=== PATIENT | female | born 1950 | race Caucasian/White ===

== ENCOUNTER 2023-04-01 11:17 | Outpatient (OUT) | payer MEDICARE, OTHER, SELFPAY ==
[2023-04-01 13:02] LABS: Free T4 0.77 ng/dL (0.76-1.46)
[2023-04-01 13:34] LABS: Thyroid Stimulating Hormone 6.118 uIU/mL (0.358-3.740)
== END 2023-04-01 11:18 | disposition home or self-care (01) ==
LOC: LAB 11:22
PROVIDERS: PCP Family Medicine; Visit Provider Family Medicine
DX: R94.6 Abnormal results of thyroid function studies (principal)
CPT/HCPCS: 36415; 84439; 84443

== ENCOUNTER 2023-06-27 09:22 | Outpatient (OUT) | payer MEDICARE, OTHER, SELFPAY ==
[2023-06-27 11:13] LABS: Free T4 1.25 ng/dL (0.76-1.46)
[2023-06-27 11:15] LABS: Chol HDL Ratio 2.7; Cholesterol 197 mg/dL (<=200); HDL Cholesterol 73 mg/dL (40-60); Thyroid Stimulating Hormone 2.159 uIU/mL (0.358-3.740); Triglycerides 165 mg/dL (<=150)
== END 2023-06-27 09:23 | disposition home or self-care (01) ==
LOC: LAB 09:23
PROVIDERS: PCP Family Medicine; Visit Provider Family Medicine
DX: E03.9 Hypothyroidism, unspecified (principal); E78.2 Mixed hyperlipidemia
CPT/HCPCS: 36415; 80061; 84439; 84443

== ENCOUNTER 2023-08-26 09:32 | Outpatient (OUT) | payer MEDICARE, OTHER, SELFPAY ==
--- NOTE | 2023-08-26 09:36 | XR_ITS ---
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 TECHNIQUE: AP view of the abdomen. FINDINGS: Nonobstructive bowel gas pattern is noted. There are multiple right renal calculi, largest measuring up to 5 mm. The osseous structures are intact. XR/XR abdomen 1V IMPRESSION: Nonobstructive bowel gas pattern. Right nephrolithiasis. Constipation. Electronically authenticated by: THAD MONTANA Date: 08/26/2023 10:05
--- NOTE | 2023-08-26 09:38 | US_ITS ---
The [address] [address] Patient Name: VARSHA CARTER MRN: [id number] date: 1950 Sex: F Assigned Patient Location: Current Patient Location: Accession/Order Number: [id number] Exam Date: 08/26/2023 10:03 Report Date: 08/27/2023 14:25 At the request of: DEDRA SAMUELS Procedure: US renal BI US renal BI EXAM DATE: 08/26/2023 8:03 AM MST COMPARISON: Abdomen radiograph 08/26/2023. INDICATION: History of kidney stone. TECHNIQUE: Real-time ultrasound scanning of the kidneys was performed by the equestrian trainer. [employer] static images are submitted for review. FINDINGS: Right Kidney: The right kidney measures 7.9 x 3.4 x 4 cm. Normal echogenicity. No hydronephrosis. Shadowing mid pole renal calculus with associated tinkle artifact measures 1.1 x 0.7 x 1.2 cm. No obvious contour deforming lesion or solid renal mass. Renal cortex measures 1.2 cm. Left Kidney: The left kidney measures 9.4 x 3.6 x 4.2 cm. Normal echogenicity. No hydronephrosis. Echogenic focus with associated twinkle artifact at the mid pole measures 0.5 x 0.4 x 0.5 cm. No obvious contour deforming lesion or solid renal mass. Renal cortex measures 1.4 cm. US/US renal BI IMPRESSION: 1. No hydronephrosis. 2. Bilateral renal calculi. Electronically authenticated by: FABIANA FELICIANO Date: 08/27/2023 14:25
== END 2023-08-26 09:33 | disposition home or self-care (01) ==
LOC: US 09:32
PROVIDERS: PCP Family Medicine; Visit Provider Urology
DX: N20.0 Calculus of kidney (principal); N28.89 Other specified disorders of kidney and ureter; K59.00 Constipation, unspecified
CPT/HCPCS: 74018; 76775

== ENCOUNTER 2024-08-20 08:36 | Outpatient (OUT) | payer MEDICARE, OTHER, SELFPAY ==
--- OUTSIDE RECORDS SUMMARY | 2024-08-20 08:56 | XMS_ITS | CCD ---
Author Organization [facility] Care Team Providers Care Workers Compensation Legal Secretary Name Role Phone Francisco Galan Primary Care Physician [phone] DR ELLIE MONTILLA V Consulting Unavailable MAR ., DR SINGH Primary Care Unavailable LUE ., CADENCE M Attending Unavailable LUE ., CADENCE M Admitting Unavailable ZIEBER, DR VANESSA Lorenzana Consulting Unavailable LUE ., CADENCE M Consulting Unavailable ZIEBER, DR VANESSA Lorenzana Consulting Unavailable HOY ., DR SINGH Primary Care Unavailable LUE ., CADENCE M Attending Unavailable LUE ., CADENCE M Admitting Unavailable LUE ., CADENCE M Consulting Unavailable LUE ., CADENCE M Procedure Practitioner Unavailab le MAR ., DR SINGH Consulting Unavailable HOY ., DR SINGH Attending Unavailable HOSabiha .DR SINGH Admitting Unavailable AGUBOSIM, CONNOR Consulting Unavailable LUE ., CADENCE M Consulting Unavailable ZIEBER, DR VANESSA Lorenzana Consulting Unavailable LUE ., CADENCE M Attending Unavailable LUE ., CADENCE M Admitting Unavailable AGUBOSIM, CONNOR Consulting Unavailable LUE ., CADENCE M Consulting Unavailable STEF LYON Consulting Unavailable JAMMIE FRANCOIS Consulting Unavailable LUE ., CADENCE M Consulting Unavailable HOY ., DR SINGH Primary Care Unavailable LUE ., CADENCE M Attending Unavailable LUE ., CADENCE M Admitting Unavailable YESICA, MODESTO Consulting Unavailable AUDREY CHAVES Consulting Unavailable ISI CORRIGAN Consulting Unavailable LUE ., CADENCE M Attending Unavailable LUE ., CADENCE M Admitting Unavailable LUE ., CADENCE M Consulting Unavailable SUSANY ., DR SINGH Primary Care Unavailable LUE ., CADENCE M Attending Unavailable LUE ., CADENCE M Admitting Unavailable MIKE MAYA Consulting Unavailable MAR .DR SINGH Primary Care Unavailable LUE ., CADENCE M Attending Unavailable LUE ., CADENCE M Admitting Unavailable LUE ., CADENCE M Consulting Unavailable HOY ., DR SINGH Primary Care Unavailable LUE ., CADENCE M Consulting Unavailable LUE ., CADENCE M Attending Unavailable LUE ., CADENCE M Admitting Unavailable ZIEBER, DR VANESSA Lorenzana Consulting Unavailable LUE ., CADENCE M Attending Unavailable LUE ., CADENCE M Admitting Unavailable LUE ., CADENCE M Consulting Unavailable LUE ., CADENCE M Consulting Unavailable LUE ., CADENCE M Attending Unavailable LUE ., CADENCE M Admitting Unavailable ZIEBER, DR VANESSA Lorenzana Consulting Unavailable HOY ., DR SINGH Primary Care Unavailable LUE ., CADENCE M Attending Unavailable LUE ., CADENCE M Admitting Unavailable LUE ., CADENCE M Consulting Unavailable HOY ., DR SINGH Consulting Unavailable HOY ., DR SINGH Attending Unavailable HOY ., DR SINGH Admitting Unavailable HOY ., DR SINGH Consulting Unavailable HOY ., DR SINGH Primary Care Unavailable HOY ., DR SINGH Attending Unavailable HOY ., DR SINGH Admitting Unavailable Lue, Cadence M. Attending Unavailable Lue, Cadence M. Attending Unavailable Lue, Cadence M. Attending Unavailable Allergies Allergy Classification Reported Allergen(s) Allergy Type Date of Onset Reaction(s) Facility (1 source) No Known Medication Allergies; Translations: [No Known Medication Allergies] Propensity to adverse reactions (disorder) [facility] Repository Medications Current Medications Medication Drug Class(es) Dates Sig (Normalized) Sig (Original) amoxicillin 875 mg / clavulanate 125 mg oral tablet (1 source) Penicillin-class Antibacterial Start: 04-21-2022 amoxicillin-clavul anate 875 mg-125 mg Tab Refill(s) 0 Start Date: 04/21/22 Status: Ordered cetirizine hydrochloride 10 mg oral tablet (4 sources) Histamine-1 Receptor Antagonist Start: 04-30-2022 take 10 mg by mouth once daily Zyrtec 10 mg, Oral, Daily, Refills(s) 0, Allergy symptoms Start Date: 04/30/22 Status: Ordered Hair, skin & Nails Multiple Vitamins with Minerals oral tablet (4 sources) Start: 05-04-2022 take 1 tablet by mouth once daily Hair, skin & Nails Multiple Vitamins with Minerals oral tablet 1 tab(s), Oral, Daily, Prophylaxis Start Date: 05/04/22 Status: Ordered ketorolac tromethamine 10 mg oral tablet (5 sources) Nonsteroidal Anti-inflammatory Drug, Cyclooxygenase Inhibitor Start: 04-21-2022 take 1 tablet by mouth every four hours as needed for pain ketorolac 10 mg Tab 10 mg = 1 tab(s), Oral, q4hr, PRN for pain, # 60 tab(s), Refills(s) 0 Start Date: 04/21/22 Status: Ordered levothyroxine sodium 0.05 mg oral tablet (1 source) l-Thyroxine Start: 09-07-2023 levothyroxine 50 mcg (0.05 mg) Tab Refills(s) 0 Start Date: 09/07/23 Status: Ordered mupirocin 0.02 mg/mg topical ointment (1 source) RNA Synthetase Inhibitor Antibacterial Start: 04-21-2022 mupirocin Top 2% Oint Refill(s) 0 Start Date: 04/21/22 Status: Ordered oxybutynin chloride 5 mg oral tablet (2 sources) Cholinergic Muscarinic Antagonist Start: 05-04-2022 take 1 tablet by mouth three times daily as needed for pain oxybutynin 5 mg Tab 5 mg = 1 tab(s), Oral, TID, PRN for urinary discomfort, bladder spasms, stent pain, # 90 tab(s), Refills(s) 0, Pharmacy: [id number], 162, cm, 04/30/22 8:03:00 EDT, Height/Length Dosing, 50.9, kg, 05/04/22 8:39:00 EDT, Weight Dosing Start Date: 05/04/22 Status: Ordered tamsulosin hydrochloride 0.4 mg oral capsule (2 sources) alpha-Adrenergic Blas Start: 05-26-2022 take 1 capsule by mouth once daily tamsulosin 0.4 mg Cap 0.4 mg = 1 cap(s), Oral, Daily, Stent pain, stone passage, # 30 cap(s), Refills(s) 1, Pharmacy: [id number], 159, cm, 05/26/22 9:44:00 EDT, Height/Length Dosing, 50.9, kg, 05/26/22 9:44:00 EDT, Weight Dosing Start Date: 05/26/22 Status: Ordered Start: 05-04-2022 take 1 capsule by [facility] once daily tamsulosin 0.4 mg Cap 0.4 mg = 1 cap(s), Oral, Daily, Stent pain, stone passage, # 30 cap(s), Refills(s) 1, Pharmacy: [id number], 162, cm, 04/30/22 8:03:00 EDT, Height/Length Dosing, 50.9, kg, 05/04/22 8:39:00 EDT, Weight Dosing Start Date: 05/04/22 Status: Ordered Problems Active Problems Problem Classification Problem Date Documented Date Episodic/Chronic Calculus of urinary tract (17 sources) Kidney stone; Translations: [Calculus of kidney] Onset: 04-21-2022 Episodic Genitourinary symptoms and ill-defined conditions (18 sources) Microscopic hematuria; Translations: [Asymptomatic microscopic hematuria] Onset: 04-21-2022 Episodic Other diseases of kidney and ureters (2 sources) Disorder of kidney and/or ureter; Translations: [Other specified disorders of kidney and ureter] Onset: 09-01-2022 Chronic Other diseases of kidney and ureters (2 sources) 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 Other diseases of kidney and ureters (1 source) Other specified disorders of kidney and ureter; Translations: [OTHER SPEC DISORDERS KIDNEY URETER] Onset: 08-09-2022 Chronic Other diseases of kidney and ureters (3 sources) Urinary tract obstruction; Translations: [Hydronephrosis with renal and ureteral calculous obstruction] Onset: 04-21-2022 Episodic Other diseases of kidney and ureters (7 sources) Hydronephrosis 04-21-2022 Episodic Unclassified (4 sources) Asymptomatic microscopic hematuria 07-14-2022 Unclassified (1 source) CONTACT W/AND (SUSP) EXPOS COVID-19; Translations: [CONTACT W/AND (SUSP) EXPOS COVID-19] Onset: 07-28-2022 Past or Other Problems Problem Classification Problem Date Documented Date Episodic/Chronic Acute and unspecified renal failure (1 source) Acute kidney failure, unspecified; Translations: [ACUTE KIDNEY FAILURE UNSPECIFIED] Onset: 04-15-2022 Episodic Fluid and electrolyte disorders (1 source) Hypokalemia; Translations: [HYPOKALEMIA] Onset: 04-15-2022 Episodic Other diseases of kidney and ureters (4 sources) Hydronephrosis with renal and ureteral calculous obstruction; Translations: [HYDRONPHROS RENL AND URETRL CALCUL OBST] Onset: 05-24-2022 Episodic Septicemia (except in labor) (6 sources) Sepsis due to Escherichia coli [E. coli]; Translations: [Sepsis, unspecified organism] Onset: 04-09-2022 Episodic Shock (1 source) Severe sepsis with septic shock; Translations: [SEVERE SEPSIS WITH SEPTIC SHOCK] Onset: 04-15-2022 Episodic Urinary tract infections (1 source) Pyonephrosis; Translations: [PYONEPHROSIS] Onset: 04-15-2022 Episodic Results Test Name Value Interpretation Reference Range Facility Ambulatory Visit Summaryon 11-07-2022 Ambulatory Visit Summary JUNAID CARTER :1950 Visit Date:09/07/2023 Ambulatory Visit Instructions Your Diagnosis Kidney stone Calyceal diverticulum Nocturia Tests Performed Urnls Dip Stick Auto w/o Microscopy POC 90185 US Renal -- Results Pending -- XR Abdomen 1 View -- Results Pending -- Please visit your patient portal for your results or contact your primary care physician. Your Care Team Attending Physician - Cadence Green MD Primary Care Physician - Francisco Galan MD This Is Your Medications List Contact prescribing physician if questions or concerns levothyroxine (levothyroxine 50 mcg (0.05 mg) Tab) Procedures Performed Ureteroscopy with biopsy (07/28/2022), ESWL (extracorporeal shockwave lithotripsy) of ureteric calculus (05/04/2022), Placement of stent (05/04/2022), Cystoscopy (04/09/2022), Carpal tunnel release, Tonsillectomy. Discharge Vitals Heart Rate (Peripheral) 80 Respiratory Rate 16 Blood Pressure 133/73 Height 159 cm Height 63 in Weight 50 kg Weight 110 lb BMI 19.78 What to do next Scheduled Follow-Up Appointments Tuesday 9:00 AM EST With: Cadence Green MD Where: [facility] Patient Educationon 09-07-20 23 Patient Education Nephrology Dietary Guidelines to Help Prevent Kidney Stones Kidney stones are deposits of minerals and salts that form inside your kidneys. Your risk of developing kidney stones may be greater depending on your diet, your lifestyle, the medicines you take, and whether you have certain medical conditions. Most people can lower their risks of developing kidney stones by following these dietary guidelines. Your dietitian may give you more specific instructions depending on your overall health and the type of kidney stones you tend to develop. What are tips for following this plan? Reading food labels ? Choose foods with no salt added or low-salt labels. Limit your salt (sodium) intake to less than 1,500 mg a day. ? Choose foods with calcium for each meal and snack. Try to eat about 300 mg of calcium at each meal. Foods that contain 200?500 mg of calcium a serving include: ? 8 oz (237 mL) of milk, calcium-fortifiednon -dairy milk, and calcium-fortifiedfru it juice. Calcium-fortified means that calcium has been added to these drinks. ? 8 oz (237 mL) of kefir, yogurt, and soy yogurt. ? 4 oz (114 g) of tofu. ? 1 oz (28 g) of cheese. ? 1 cup (150 g) of dried figs. ? 1 cup (91 g) of cooked broccoli. ? One 3 oz (85 g) can of sardines or mackerel. Most people need 1,000?1,500 mg of calcium a day. Talk to your dietitian about how much calcium is recommended for you. Shopping ? Buy plenty of fresh fruits and vegetables. Most people do not need to avoid fruits and vegetables, even if these foods contain nutrients that may contribute to kidney stones. ? When shopping for convenience foods, choose: ? Whole pieces of fruit. ? Pre-made salads with dressing on the side. ? Low-fat fruit and yogurt smoothies. ? Avoid buying frozen meals or prepared deli foods. These can be high in sodium. ? Look for foods with live cultures, such as yogurt and kefir. ? Choose high-fiber grains, such as whole-wheat breads, oat bran, and wheat cereals. Cooking ? Do not add salt to food when cooking. Place a salt shaker on the table and allow each person to add their own salt to taste. ? Use vegetable protein, such as beans, textured vegetable protein (TVP), or tofu, instead of meat in pasta, casseroles, and soups. Meal planning ? Eat less salt, if told by your dietitian. To do this: ? Avoid eating processed or pre-made food. ? Avoid eating fast food. ? Eat less animal protein, including cheese, meat, poultry, or fish, if told by your dietitian. To do this: ? Limit the number of times you have meat, poultry, fish, or cheese each week. Eat a diet free of meat at least 2 days a week. ? Eat only one serving each day of meat, poultry, fish, or seafood. ? When you prepare animal proteins, cut pieces into small portion sizes. For most meat and fish, one serving is about the size of the palm of your hand. ? Eat at least five servings of fresh fruits and vegetables each day. To do this: ? Keep fruits and vegetables on hand for snacks. ? Eat one piece of fruit or a handful of berries with breakfast. ? Have a salad and fruit at lunch. ? Have two kinds of vegetables at dinner. ? You may be told to limit foods that are high in a substance called oxalate. These include: ? Spinach (cooked), rhubarb, beets, sweet potatoes, and Grenadian chard. ? Peanuts. ? Potato chips, italian fries, and baked potatoes with skin on. ? Nuts and nut products. ? Chocolate. ? If you regularly take a diuretic medicine, make sure to eat at least 1 or 2 servings of fruits or vegetables that are high in potassium each day. These include: ? Avocado. ? Banana. ? [place], prune, carrot, or tomato juice. ? Baked potato. ? Cabbage. ? Beans and split peas. Lifestyle ? Drink enough fluid to keep your urine pale yellow. This is the most important thing you can do. Spread your fluid intake throughout the day. ? If you drink alcohol: ? Limit how much you have to: ? 0?1 drink a day for women who are not . ? 0?2 drinks a day for men. ? Know how much alcohol is in your drink. In the [place] one drink equals one 12 oz bottle of beer (355 mL), one 5 oz glass of wine (148 mL), or one 1? oz glass of hard liquor (44 mL). ? Lose weight if told by your health care provider. Work with your dietitian to find an eating plan and weight loss strategies that work best for you. General information ? Talk to your health care provider and dietitian about taking daily supplements. Depending on your health and the cause of your kidney stones, you may be told: ? Do not take high-dose supplements of vitamin C (1,000 mg a day or more). ? To take a calcium supplement. ? To take a daily probiotic supplement. ? To take other supplements such as magnesium, fish oil, or vitamin B6. ? Take zvnj-yqc-itzwmuo and prescription medicines only as told by your health care provider. These include supplements. What foods sh (more content not included)... Normal [facility] Urology Office/Clinic Noteon 09-07-2023 Urology Office/Clinic Note Chief Complaint 6m ANDREW & KUB HPI Staff 73 yo female here for 6 month f/u with ANDREW and KUB. Previous Dx: kidney stone, calyceal diverticulum, nocturia. S/p Cysto/R RG/Stone Basket Extraction/R Calyx Bx/R stent removal 07/28/22 and R ESWL 05/04/22. KUB & ANDREW 08/26/23 at [facility]. Denies flank pain. Denies UTI since last encounter. Denies any complications voiding. No concerns at this time. History of Present Illness Tests reviewed: reviewed UA, Kub, and ANDREW. I have reviewed the previous health record information and history for this patient from . I have reviewed and verified the staff HPI to be accurate for this encounter. There have been no associated fever, chills, flank pain, or blood in the urine. Denies any urinary infections since last encounter. Review of Systems PHQ Score Initial Depression Screen Score: 0 SCORE ROS - Provider Constitutional: denies weight loss, denies hot flashes. Eyes: denies eye problems. Gastrointestinal: denies nausea, denies vomiting. Cardiovascular: denies chest pain or angina. Integumentary: no dryness Musculoskeletal: denies musculoskeletal symptoms. ENMT: denies otolaryngeal symptoms. Respiratory: no shortness of breath. Heme/Lymph: denies easy bleeding tendency, denies easy bruising tendency. Psychiatric: no confusion, no anxiety. Genitourinary: See HPI. Physical Exam Vitals & Measurements HR: 80(Peripheral) RR: 16 BP: 133/73 HT: 63 in HT: 159 cm WT: 50 kg WT: 110 lb BMI: 19.78 General Appearance: alert , no acute distress, well nourished, well developed female. Genitourinary: bladder nonpalpable, no flank pain. Assessment/Plan Junaid is a 73 yo female here for a 6 mos follow up with a ANDREW and KUB due to Kidney Stones. Present with 1. Kidney stone (N20.0: Calculus of kidney) Hx 1.8 cm R UPJ stone s/p stent urgently for sepsis, followed by Rt ESWL on 05/04/22 - responded very well. S/p R ESWL for 2nd RUP 12x9mm stone. Stent removed. Stone analysis 07/28/22 - 100% hydroxyapatite ANDREW 08/19/22 - large right nonobstructing stone within superior pole, 10 x 9 x 9mm. Nonobstructing 3mm stone within mid body left KUB 02/18/23 - stable right nephrolithiasis measuring 11mm. ANDREW 02/18/23 - 1.6cm right nonobstructing calculus. (on personal review, unchanged from prior, measurements not aligned with stone) KUB 08/26/23 - multiple Rt renal stones, largest measuring up to 5mm NADREW 08/26/23 - BL renal stones, RMP 1.1x0.7x1.2cm, LMP 0.5x0.4x0.5cm Reviewed and discussed imaging results with pt, has some bilateral stones still, stable -Right kidney stone expected to remain given and calyceal diverticulum. Pt states that she has been drinking about 3-4 bottles of water, getting harder to drink, advised pt to try to drink a water when she wakes up in the morning, and more throughout the day. Pt states that she will try to do this. Pt states that she does add lemon juice to her water. Pt states that she would like to continue with the dietary modifications. Advised pt that as long as she is not having any infections or bothersome sxs, we can continue to monitor. Follow up in 1 yr w/KUB and ANDREW. All questions/concerns were discussed. Pt to call the office if she encounters any issues prior. Pt acknowledges understanding. -Will order KUB and ANDREW. -Increase water intake. -Continue Dietary modifications 2. 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 Abnormal appearing overlying issue biopsy and urine cytology were negative for malignancy. -Stone appears stable on renal ultrasound/ KUB. If getting infections or pain will refer to tertiary center for PCNL. 3. Nocturia (R35.1: Nocturia) Improved, depending on fluid intake. Declines further workup/tx at this time. -Cont behavioral changes I spent 25 minutes today with the patient: reviewing tests in preparation to see and discuss them with the patient, documenting clinical information in the electronic health records, and care coordination. Time was spent performing a medical exam and evaluation, counseling and educating the patient/family, and ordering tests in caring for the patient. Follow-up With When Contact Information Cadence Green MD, URL, URO In 1 year Additional Instructions: Patient Education Dietary Guidelines to Help Prevent Kidney Stones I, Odette Khoury, personally scribed for Dr. Green on 09/07/2023 10:23:23. . Portions of this record may have been created with voice recognition artificial intelligence software, specifically [employer], [employer] and or [employer]. Substitutions may have occurred due to the inherent limitations of voice recognition and artificial intelligence software. Doc (more content not included)... Normal [facility] Comment on above: Result Comment: Elec tronically Signed By: Cadence Green MD\.br\Date and Time Signed: 09/07/23 18:17 EST\.br\Electronically Co-Signed By: Odette Khoury\.br\Date and Time Co-Signed: 09/07/23 10:23 EST RAD - Ultrasound Reporton RAD - Ultrasound Report [id number] #1.00TIFF Normal [facility] RAD - MISCon 08-30-2023 RAD - MISC [id number] #1.00TIFF Normal [facility] RAD - Ultrasound Reporton RAD - Ultrasound Report [id number]# 1.00TIFF Normal [facility] Reminderson 08-29-2023 Reminders - From: Federica Jara MA To: NERI Green; Sent: 03/02/2023 12:16:27 EDT Show up: 07/06/2023 12:16:00 EDT Subject: Reminder Message Reminder Message Please Remember to:_RUS and KUB before her appt PATIENT RELATED REMINDER:_ ( ) Call Patient ( ) Ask Patient to ( ) Call Relative ( ) Schedule Patient ( ) Follow up on Results ( ) Other: PROVIDER RELATED REMINDER:_ ( ) Human Factors Advisor Lead ( ) Call Pharmacy ( ) Call Lab ( ) Other: Special Instructions:_ Comments:_ Called pt and she states she gets imaging done @ [facility]. Order for ANDREW & KUB were faxed. Called pt and she states she is scheduled for ANDREW & KUB on 08/24/23 @ [facility] KUB in pt chart, ANDREW found on [place] and scanned. Pt follow up on 09/07/23. Normal [facility] Patient Educationon 03-02-20 Patient Education Urology Kidney Stones Kidney stones are rock-like masses that form inside of the kidneys. Kidneys are organs that make pee (urine). A kidney stone may move into other parts of the urinary tract, including: ? The tubes that connect the kidneys to the bladder (ureters). ? The bladder. ? The tube that carries urine out of the body (urethra). Kidney stones can cause very bad pain and can block the flow of pee. The stone usually leaves your body (passes) through your pee. You may need to have a doctor take out the stone. What are the causes? Kidney stones may be caused by: ? A condition in which certain glands make too much parathyroid hormone (primary hyperparathyroidism) . ? A buildup of a type of crystals in the bladder made of a chemical called uric acid. The body makes uric acid when you eat certain foods. ? Narrowing (stricture) of one or both of the ureters. ? A kidney blockage that you were born with. ? Past surgery on the kidney or the ureters, such as gastric bypass surgery. What increases the risk? You are more likely to develop this condition if: ? You have had a kidney stone in the past. ? You have a family history of kidney stones. ? You do not drink enough water. ? You eat a diet that is high in protein, salt (sodium), or sugar. ? You are overweight or very overweight (obese). What are the signs or symptoms? Symptoms of a kidney stone may include: ? Pain in the side of the belly, right below the ribs (flank pain). Pain usually spreads (radiates) to the groin. ? Needing to pee often or right away (urgently). ? Pain when going pee (urinating). ? Blood in your pee (hematuria). ? Feeling like you may vomit (nauseous). ? Vomiting. ? Fever and chills. How is this treated? Treatment depends on the size, location, and makeup of the kidney stones. The stones will often pass out of the body through peeing. You may need to: ? Drink more fluid to help pass the stone. In some cases, you may be given fluids through an IV tube put into one of your veins at the hospital. ? Take medicine for pain. ? Make changes in your diet to help keep kidney stones from coming back. Sometimes, medical procedures are needed to remove a kidney stone. This may involve: ? A procedure to break up kidney stones using a beam of light (laser) or shock waves. ? Surgery to remove the kidney stones. Follow these instructions at home: Medicines ? Take nqyb-tgq-fjreeyq and prescription medicines only as told by your doctor. ? Ask your doctor if the medicine prescribed to you requires you to avoid driving or using heavy machinery. Eating and drinking ? Drink enough fluid to keep your pee pale yellow. You may be told to drink at least 8?10 glasses of water each day. This will help you pass the stone. ? If told by your doctor, change your diet. This may include: ? Limiting how much salt you eat. ? Eating more fruits and vegetables. ? Limiting how much meat, poultry, fish, and eggs you eat. ? Follow instructions from your doctor about eating or drinking restrictions. General instructions ? Collect pee samples as told by your doctor. You may need to collect a pee sample: ? 24 hours after a stone comes out. ? 8?12 weeks after a stone comes out, and every 6?12 months after that. ? Strain your pee every time you pee (urinate), for as long as told. Use the strainer that your doctor recommends. ? Do not throw out the stone. Keep it so that it can be tested by your doctor. ? Keep all follow-up visits as told by your doctor. This is important. You may need follow-up tests. How is this prevented? To prevent another kidney stone: ? Drink enough fluid to keep your pee pale yellow. This is the best way to prevent kidney stones. ? Eat healthy foods. ? Avoid certain foods as told by your doctor. You may be told to eat less protein. ? Stay at a healthy weight. Where to find more information ? National Kidney Foundation (NKF): www.kidney.org ? [facility] (UCF): www.urologyhealth.or g Contact a doctor if: ? You have pain that gets worse or does not get better with medicine. Get help right away if: ? You have a fever or chills. ? You get very bad pain. ? You get new pain in your belly (abdomen). ? You pass out (faint). ? You cannot pee. Summary ? Kidney stones are rock-like masses that form inside of the kidneys. ? Kidney stones can cause very bad pain and can block the flow of pee. ? The stones will often pass out of the body through peeing. ? Drink enough fluid to keep your pee pale yellow. This information is not intended to replace advice given to you by your health care provider. Make sure you discuss any questions you have with your health care provider. Document Revised: 05/31/2022 Document Reviewed: 05/31/2022 [employer] Patient Education ? 2022 [employer] Alessio [facility] Urology Office/Clinic Noteon 03-02-2023 Urology Office/Clinic Note Chief Complaint Pt is here for 6 month w/ KUB & ANDREW HPI Staff Junaid is a 73 y.o. female here for 6 month follow up w/ KUB & ANDREW. Previous Dx: asymptomatic microscopic hematuria, calyceal diverticulum, kidney stone, nocturia, ureteral stone, urinary frequency. S/P ureteroscopy w/ biopsy done on 07/28/22, ESWL done on 05/04/22. KUB done on 02/18/23 showed stable right nephrolithiasis. ANDREW done on 02/18/23 showed 1.6cm right nonobstructing nephrolith. Dysuria: denies Incomplete bladder emptying: denies Hematuria: denies Frequency: yes due to fluid intake Urgency: denies Nocturia: 2x a night Stream: steady stream Leaking: denies Post void dripping: denies Wearing pads/ Depends: denies Urge incontinence: denies Stress incontinence: denies Incontinence without Sensory Awareness: denies Abdominal pain: denies Flank pain: denies Sexual complaints: _ History of Present Illness I have reviewed and verified the staff HPI to be accurate for this encounter. Reviewed external records: labs from PCP Review of Systems PHQ Score Initial Depression Screen Score: 0 ROS - Provider Constitutional: denies weight loss, denies hot flashes. Eyes: denies eye problems. Gastrointestinal: denies nausea, denies vomiting. Cardiovascular: denies chest pain or angina. Integumentary: no dryness Musculoskeletal: denies musculoskeletal symptoms. ENMT: denies otolaryngeal symptoms. Respiratory: no shortness of breath. Heme/Lymph: denies easy bleeding tendency, denies easy bruising tendency. Psychiatric: no confusion, no anxiety. Genitourinary: see HPI Physical Exam Vitals & Measurements HR: 72(Peripheral) BP: 121/81 HT: 63 in HT: 159 cm WT: 50 kg WT: 110 lb BMI: 19.78 General Appearance: alert , no acute distress, well nourished, well developed female. Genitourinary: bladder nonpalpable, no flank pain. Assessment/Plan 1. Kidney stone (N20.0: Calculus of kidney) Hx 1.8 cm R UPJ stone s/p stent urgently for sepsis, followed by Rt ESWL on 05/04/2022 - responded very well. s/p R ESWL for 2nd RUP 12x9mm stone. Stent removed. Renal us 08/19/22 at [facility] - large right nonobstructing stone within superior pole, 10 x 9 x 9mm. Nonobstructing 3mm stone within mid body left Stone analysis 07/28/22 - 100% hydroxyapatite KUB 02/18/23 - stable right nephrolithiasis measuring 11mm. ANDREW 02/18/23 - 1.6cm right nonobstructing calculus. (on personal review, unchanged from prior, measurements not aligned with stone) -Will continue to monitor, cont dietary modifications and high fluid intake -Will order ANDREW and KUB to review in 6 mths 2. 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 Nocturia (R35.1: Nocturia) Improved, depending on fluid intake. Declines further workup/tx at this time Cont behavioral changes Follow-up With When Contact Information Peter VILLA, Cadence Lay, URL, URO In 6 months 09/02/2023 EST [address], [place] [address] [phone] Additional Instructions: ANDREW, KUB Patient Education Kidney Stones, [id number] Federica Rueda , personally scribed for Dr. Green on 03/02/2023 12:17:15. . Documentation recorded by the Federica collado, accurately reflects the services(s) I performed and decisions made by me. Authenticated by Dr. Green on 03/02/2023 16:19:09. Problem List/Past Medical History Ongoing Asymptomatic microscopic hematuria Calyceal diverticulum Kidney stone Nocturia Ureteral stone with hydronephrosis Urinary frequency Historical No qualifying data Procedure/Surgical History Ureteroscopy with biopsy (07/28/2022), ESWL (extracorporeal shockwave lithotripsy) of ureteric calculus (05/04/2022), Placement of stent (05/04/2022), Cystoscopy (04/09/2022), Carpal tunnel release, Tonsillectomy. Medications cetirizine 10 mg Tab simvastatin 40 mg Tab Allergies No Known Medication Allergies Social History Alcohol - Denies Alcohol Use, 04/30/2022 Substance Abuse - Denies Substance Abuse, 04/30/2022 Tobacco - Denies Tobacco Use, 04/21/2022 Never (less than 100 in lifetime) Tobacco Use:. Never Smokeless Tobacco Use:., 09/01/2022 Immunizations Vaccine Date Status Comments influenza virus vaccine, inactivated 08/02/2022 Recorded SARS-CoV-2 (COVID-19) mRNA-1273 vaccine 09/16/2021 Recorded 2022-07-14: TPV70 influenza virus vaccine, inactivated 07/08/2021 Recorded SARS-CoV-2 (COVID-19) mRNA-1273 vaccine 02/04/2021 Recorded 2022-07-14: TPV70 SARS-C (more content not included)... Normal [facility] Comment on above: Result Comment: Elec tronically Signed By: Cadence Green MD\.br\Date and Time Signed: 03/02/23 16:19 EDT\.br\Electronically Co-Signed By: Federica Jara MA\.br\Date and Time Co-Signed: 03/02/23 12:17 EDT INSULINon 02-19-2023 Insulin 7.9 uIU/mL Normal 2.6-24.9 [facility] Comment on above: Performed By: #### I NSULIN #### [facility] [address] [address] [address] Chuck Leach CBC AUTO DIFFon 02-18-2023 BASO # 0.0 103/ul Normal 0.0-0.1 [facility] Comment on above: Performed By: #### C BC #### [facility] [address] [address] [address] Chuck Leach Basophils/100 WBC (Bld) 0.3 % Normal 0.2-2.[address] [facility] Comment on above: Performed By: #### C BC #### [facility] [address] [place] [address] Dr. Chuck Leach EO # 0.0 103/ul Normal 0.0-0.7 [facility] Comment on above: Performed By: #### C BC #### [facility] [address] [place] [address] Dr. Chuck Leach Eosinophils/100 WBC (Bld) 0.1 % Critically low 0.9-7.0 [facility] Comment on above: Performed By: #### C BC #### [facility] [address] [place] [address] Dr. Chuck Leach Erythrocyte distribution width (RBC) [Ratio] 13.6 % Normal 11.0-15.0 [facility] Comment on above: Performed By: #### C BC #### [facility] [address] [place] [address] Dr. Chuck Leach Hematocrit (Bld) [Volume fraction] 41.6 % Normal 36.0-48.0 [facility] Comment on above: Performed By: #### C BC #### [facility] [address] [place] [address] Dr. Chuck Leach Hemoglobin (Bld) [Mass/Vol] 13.3 g/dL Normal 12.0-16.0 [facility] Comment on above: Performed By: #### C BC #### [facility] [address] [place] [address] Dr. Chuck Leach IG # 0.02 10e3/ul Normal 0.00-0.03 [facility] Comment on above: Performed By: #### C BC #### [facility] [address] [place] [address] Dr. Chuck Leach IG % 0.3 % Normal 0.0-0.5 [facility] Comment on above: Performed By: #### C BC #### [facility] [address] [place] [address] Dr. Chuck Leach LYMPH # 1.3 103/ul Normal 1.2-3.8 [facility] Comment on above: Performed By: #### C BC #### [facility] [address] [place] [address] Dr. Chuck Leach Lymphocytes/100 WBC (Bld) 18.0 % Critically low 20.5-60.0 [facility] Comment on above: Performed By: #### C BC #### [facility] [address] [place] [address] Dr. Chuck Leach MANUAL DIFF REQ NO Normal [facility] Comment on above: Performed By: #### C BC #### [facility] [address] [place] [address] Dr. Chuck Leach MCH (RBC) [Entitic mass] 27.5 pg Normal 26.7-34.0 [facility] Comment on above: Performed By: #### C BC #### [facility] [address] [place] [address] Dr. Chuck Leach MCHC (RBC) [Mass/Vol] 32.0 g/dL Normal 29.9-35.2 [facility] Comment on above: Performed By: #### C BC #### [facility] [address] [place] [address] Dr. Chuck Leach MCV (RBC) [Entitic vol] 86.1 fL Normal 81.0-99.[address] [facility] Comment on above: Performed By: #### C BC #### [facility] [address] [place] [address] Dr. Chuck Leach MONO # 0.5 103/ul Normal 0.3-0.8 [facility] Comment on above: Performed By: #### C BC #### [facility] [address] [place] [address] Dr. Chuck Leach Monocytes/100 WBC (Bld) 6.7 % Normal 1.7-12.[address] [facility] Comment on above: Performed By: #### C BC #### [facility] [address] [place] [address] Dr. Chuck Leach NEUT # 5.3 103/ul Normal 1.4-6.5 [facility] Comment on above: Performed By: #### C BC #### [facility] [address] [address] [address] Chuck Leach Neutrophils/100 WBC (Bld) 74.6 % Normal 43.0-75.0 [facility] Comment on above: Performed By: #### C BC #### [facility] [address] [place] [address] Dr. Chuck Leach Platelet mean volume (Bld) [Entitic vol] 9.9 fL Normal 9.5-13.5 [facility] Comment on above: Performed By: #### C BC #### [facility] [address] [place] [address] Dr. Chuck Leach PLT 330 103/ul Normal 150-450 [facility] Comment on above: Performed By: #### C BC #### [facility] [address] [place] [address] Dr. Chuck Leach RBC 4.83 106/ul Normal 4.20-5.40 [facility] Comment on above: Performed By: #### C BC #### [facility] [address] [place] [address] Dr. Chuck Leach WBC 7.2 103/ul Normal 4.0-11.0 [facility] Comment on above: Performed By: #### C BC #### [facility] [address] [place] [address] Dr. Chuck Leach FREE THYROXINE INDEX T7on FTI 2.31 Normal 1.30-4.50 [facility] Comment on above: Performed By: #### L IPID, T7, TSH, CMP #### [facility] [address] [place] [address] Dr. Chuck Leach T3U 30.0 % Normal 30.0-39.0 [facility] Comment on above: Performed By: #### L IPID, T7, TSH, CMP #### [facility] [address] [place] [address] Dr. Chuck Leach T4 [Mass/Vol] 7.70 ug/dL Normal 4.80-13.90 [facility] Comment on above: Performed By: #### L IPID, T7, TSH, CMP #### [facility] [address] [address] [address] Chuck Leach GLYCOHEMOGLOBIN A1Con 2022 ADA RECOMMENDATION SEE BELOW Normal [facility] Comment on above: Result Comment: ADA RECOMMENDED LIMIT 4.0 - 6.0 ADA THERAPEUTIC TARGET < 7.0 ACTION SUGGESTED > 7.0 Performed By: #### A 1C #### [facility] [address] [address] [address] Chuck Leach Glucose [Mass/Vol] 108 mg/dL Normal [facility] Comment on above: Performed By: #### A 1C #### [facility] [address] [place] [address] Dr. Chuck Leach HbA1c (Bld) [Mass fraction] 5.4 % Normal 4.5-6.2 [facility] Comment on above: Performed By: #### A 1C #### [facility] [address] [address] [address] Chuck Leach IRONon 02-18-2023 Iron [Mass/Vol] 56.0 ug/dL Normal 50.0-170.0 [facility] Comment on above: Performed By: #### L IPID, T7, TSH, CMP #### [facility] [address] [place] [address] Dr. Chuck Leach LIPID PROFILEon 02-18-2023 CHOL-HDL RATIO NORM SEE BELOW Normal [facility] Comment on above: Result Comment: 3.3 - 4.4 LOW RISK 4.4 - 7.1 AVERAGE RISK 7.1 - 11.0 MODERATE RISK >11.0 HIGH RISK Performed By: #### L IPID, T7, TSH, CMP #### [facility] [address] [place] [address] Dr. Chuck Leach Cholesterol [Mass/Vol] 311 mg/dL Critically high <=200 [facility] Comment on above: Performed By: #### L IPID, T7, TSH, CMP #### [facility] [address] [place] [address] Dr. Chuck Leach Cholesterol in HDL [Mass/Vol] 77 mg/dL Critically high 40-60 [facility] Comment on above: Performed By: #### L IPID, T7, TSH, CMP #### [facility] [address] [address] [address] Chuck Leach Cholesterol in LDL [Mass/Vol] 203.6 mg/dL Normal [facility] Comment on above: Performed By: #### L IPID, T7, TSH, CMP #### [facility] [address] [address] [address] Chuck Leach Cholesterol.total/Val[place] sterol in HDL [Mass ratio] 4.0 {ratio} Normal [facility] Comment on above: Performed By: #### L IPID, T7, TSH, CMP #### [facility] [address] [place] [address] Dr. Chuck Leach HDL NORMAL > or = 60 mg/dl - LOW CARDIOVASCULAR RISK <40 mg/dl - HIGH CARDIOVASCULAR RISK Normal [facility] Comment on above: Performed By: #### L IPID, T7, TSH, CMP #### [facility] [address] [place] [address] Dr. Chuck Leach LDL CALC NORMAL SEE BELOW Normal [facility] Comment on above: Result Comment: <100 mg/dl OPTIMAL 100 - 129 mg/dl NEAR OR ABOVE OPTIMAL 130 - 159 mg/dl BORDERLINE HIGH 160 - 189 mg/dl HIGH >190 mg/dl VERY HIGH Performed By: #### L IPID, T7, TSH, CMP #### [facility] [address] [address] [address] Chuck Leach Triglyceride [Mass/Vol] 152 mg/dL Critically high <=150 [facility] Comment on above: Performed By: #### L IPID, T7, TSH, CMP #### [facility] [address] [place] [address] Dr. Chuck Leach VLDL CALC 30.4 mg/dL Normal [facility] Comment on above: Performed By: #### L IPID, T7, TSH, CMP #### [facility] [address] [place] [address] Dr. Chuck Leach PROF 14(COMP METB)on 023 Albumin [Mass/Vol] 4.1 g/dL Normal 3.4-5.0 [facility] Comment on above: Performed By: #### L IPID, T7, TSH, CMP #### [facility] [address] [place] [address] Dr. Chuck Leach Albumin/Globulin [Mass ratio] 1.0 {ratio} Normal [facility] Comment on above: Performed By: #### L IPID, T7, TSH, CMP #### [facility] [address] [place] [address] Dr. Chuck Leach ALP [Catalytic activity/Vol] 126 U/L Critically high 46-116 [facility] Comment on above: Performed By: #### L IPID, T7, TSH, CMP #### [facility] [address] [place] [address] Dr. Chuck Leach ALT [Catalytic activity/Vol] 18 U/L Normal 14-59 [facility] Comment on above: Performed By: #### L IPID, T7, TSH, CMP #### [facility] [address] [address] [address] Chuck Leach Anion gap [Moles/Vol] 12.9 mmol/L Normal [facility] Comment on above: Performed By: #### L IPID, T7, TSH, CMP #### [facility] [address] [place] [address] Dr. Chuck Leach AST [Catalytic activity/Vol] 18 U/L Normal 15-37 [facility] Comment on above: Performed By: #### L IPID, T7, TSH, CMP #### [facility] [address] [place] [address] Dr. Chuck Leach Bilirubin [Mass/Vol] 0.5 mg/dL Normal 0.2-1.0 [facility] Comment on above: Performed By: #### L IPID, T7, TSH, CMP #### [facility] [address] [place] [address] Dr. Chuck Leach Calcium [Mass/Vol] 9.3 mg/dL Normal 8.5-10.1 [facility] Comment on above: Performed By: #### L IPID, T7, TSH, CMP #### [facility] [address] [address] [address] Chuck Leach Chloride [Moles/Vol] 101 mmol/L Normal 98-107 [facility] Comment on above: Performed By: #### L IPID, T7, TSH, CMP #### [facility] [address] [address] [address] Chuck Leach CO2 [Moles/Vol] 24.7 mmol/L Normal 21.0-32.0 [facility] Comment on above: Performed By: #### L IPID, T7, TSH, CMP #### [facility] [address] [place] [address] Dr. Chuck Leach Creatinine [Mass/Vol] 0.91 mg/dL Normal 0.55-1.02 [facility] Comment on above: Performed By: #### L IPID, T7, TSH, CMP #### [facility] [address] [address] [address] Chuck Leach EGFR-AF TONGAN >60 Normal >=60 [facility] Comment on above: Performed By: #### L IPID, T7, TSH, CMP #### [facility] [address] [place] [address] Dr. Chuck Leach EGFR-NON AF TONGAN >60 Normal >=60 [facility] Comment on above: Performed By: #### L IPID, T7, TSH, CMP #### [facility] [address] [address] [address] Chuck Leach Globulin (S) [Mass/Vol] 4.0 g/dL Normal T [facility] Comment on above: Performed By: #### L IPID, T7, TSH, CMP #### [facility] [address] [place] [address] Dr. Chuck Leach Glucose [Mass/Vol] 92 mg/dL Normal 74-106 [facility] Comment on above: Performed By: #### L IPID, T7, TSH, CMP #### [facility] [address] [place] [address] Dr. Chuck Leach Potassium [Moles/Vol] 3.7 mmol/L Normal 3.5-5.1 [facility] Comment on above: Performed By: #### L IPID, T7, TSH, CMP #### [facility] [address] [place] [address] Dr. Chuck Leach Protein [Mass/Vol] 8.1 g/dL Normal 6.4-8.2 [facility] Comment on above: Performed By: #### L IPID, T7, TSH, CMP #### [facility] [address] [place] [address] Dr. Chuck Leach Sodium [Moles/Vol] 135 mmol/L Critically low 136-145 [facility] Comment on above: Performed By: #### L IPID, T7, TSH, CMP #### [facility] [address] [place] [address] Dr. Chuck Leach Urea nitrogen [Mass/Vol] 12.0 mg/dL Normal 7.0-18.0 [facility] Comment on above: Performed By: #### L IPID, T7, TSH, CMP #### [facility] [address] [place] [address] Dr. Chuck Leach Urea nitrogen/Creatinine [Mass ratio] 13.2 mg/mg Normal [facility] Comment on above: Performed By: #### L IPID, T7, TSH, CMP #### [facility] [address] [place] [address] Dr. Chuck Leach TSHon 02-18-2023 TSH 7.493 uIU/mL Critically high 0.358-3.740 [facility] Comment on above: Performed By: #### L IPID, T7, TSH, CMP #### [facility] [address] [place] [address] Dr. Chuck Leach US KIDNEYSon 02-18-2023 US KIDNEYS EXAMINATION: US KIDNEYS HISTORY: Kidney stone COMPARISON: No relevant comparison available. TECHNIQUE: Ultrasound examination was performed of the bladder. FINDINGS: Right Kidney: Normal in size, contour and cortical echotexture. The cortex measures 1.7 cm. Echogenic foci measuring 1.6 cm with acoustic shadowing, nonobstructing nephrolith favored. No solid cortical mass or hydronephrosis. Height: 3.2 cm Length: 7.9 cm Width: 3.5 cm Left Kidney: Normal in size, contour and cortical echotexture. The cortex measures 1.4 cm. No solid cortical mass or hydronephrosis Height: 3.6 cm Length: 9.9 cm Width: 4.0 cm Urinary bladder is partially distended measuring 3.1 x 6.2 x 3.8 cm with volume of 52 cc IMPRESSION: 1.6 cm right nonobstructing nephrolith Electronically authenticated by: ELLIE MONTILLA Date: 2023-02-18 09:56 Normal [facility] XR KUB 1 VIEWon 02-18-2023 XR KUB 1 VIEW EXAMINATION: XR KUB 1 VIEW HISTORY: Kidney stone COMPARISON: XR KUB 07/08/2022, ultrasound kidneys 02/18/2023 FINDINGS: KIDNEY/URETER - RIGHT: 11 mm stone versus collection of stones within superior pole of kidney. KIDNEY/URETER - LEFT: No visible renal or ureteral calcifications. PELVIS: Numerous calcifications within pelvis, grossly stable favoring phleboliths. Right ureteral stent is no longer present. BOWEL: No abnormal dilation or deviation. BONES: No acute abnormality. OTHER: Negative. No abnormal gaseous collections. IMPRESSION: 1. Stable right nephrolithiasis. Electronically authenticated by: VANESSA ASHTON Date: 2023-02-18 10:12 Normal [facility] US KIDNEYSon 08-19-2022 US KIDNEYS EXAMINATION: US KIDNEYS HISTORY: Kidney stone COMPARISON: XR KUB 07/08/2022 TECHNIQUE: Ultrasound examination was performed of the kidneys and urinary bladder. FINDINGS: RIGHT KIDNEY: Large nonobstructing stone within superior pole, 10 x 9 x 9 mm. Color Doppler demonstrates blood flow within the kidney. No appreciable mass. Moderate cortical thinning, 5 mm in thickness. Kidney: 9.3 x 4.8 x 3.3 cm LEFT KIDNEY: Nonobstructing 3 mm stone within mid body. Color Doppler demonstrates blood flow within the kidney. No appreciable mass. Moderate cortical thinning, 7 mm in thickness. Kidney: 9.9 x 5.1 x 4.4 cm BLADDER: No visible wall thickening, mass, or calculi. IMPRESSION: 1. Bilateral nonobstructing nephrolithiasis. 2. Moderate cortical thinning bilaterally. Electronically authenticated by: VANESSA ASHTON Date: 2022-08-19 09:59 Normal [facility] CALCULI, URINARYon 2 2,8 Dihydroxyadenine Normal [facility] Comment on above: Performed By: #### L IPID, T7, TSH, CMP #### [facility] [address] [address] [address] Chuck Leach Ammonium Acid Urate Normal [facility] Comment on above: Performed By: #### L IPID, T7, TSH, CMP #### [facility] [address] [address] [address] Chuck Leach Bilirubin Ql (U) Normal [facility] Comment on above: Performed By: #### L IPID, T7, TSH, CMP #### [facility] [address] [address] [address] Chuck Leach Ca Oxalate Dihydrate Normal [facility] Comment on above: Performed By: #### L IPID, T7, TSH, CMP #### [facility] [address] [address] [address] Chuck Leach CaHPO4 (Brushite) [facility] Comment on above: Performed By: #### L IPID, T7, TSH, CMP #### [facility] [address] [address] [address] Chuck Leach Calcium Bilirubinate Normal [facility] Comment on above: Performed By: #### L IPID, T7, TSH, CMP #### [facility] [address] [address] [address] Chuck Leach Calcium Carbonate Normal [facility] Comment on above: Performed By: #### L IPID, T7, TSH, CMP #### [facility] [address] [address] [address] Chuck Leach Calcium Oxalate Monohydrate Normal [facility] Comment on above: Performed By: #### L IPID, T7, TSH, CMP #### [facility] [address] [address] [address] Chuck Leach Calcium Palmitate Normal [facility] Comment on above: Performed By: #### L IPID, T7, TSH, CMP #### [facility] [address] [address] [address] Chuck Leach Calcium Phosphate Normal [facility] Comment on above: Performed By: #### L IPID, T7, TSH, CMP #### [facility] [address] [address] [address] Chuck Leach Calcium Stearate Normal [facility] Comment on above: Performed By: #### L IPID, T7, TSH, CMP #### [facility] [address] [address] [address] Chuck Leach Carbonate Apatite Normal [facility] Comment on above: Performed By: #### L IPID, T7, TSH, CMP #### [facility] [address] [address] [address] Chuck Leach Cellular Material [facility] Comment on above: Performed By: #### L IPID, T7, TSH, CMP #### [facility] [address] [address] [address] Chuck Leach Cholesterol [facility] Comment on above: Performed By: #### L IPID, T7, TSH, CMP #### [facility] [address] [address] [address] Chuck Leach Color (U) Luna [facility] Comment on above: Performed By: #### L IPID, T7, TSH, CMP #### [facility] [address] [address] [address] Chuck Leach Comment Comment Normal [facility] Comment on above: Result Comment: Insu fficient sample: possibility of struvite as a minor component should not be excluded. Performed By: #### L IPID, T7, TSH, CMP #### [facility] [address] [address] [address] Chuck Leach Result Comment: Calc ulus received wet. Wet calculi must be dried before analysis, which delays reporting of results. Leaving calculi wet (such as water, saline, blood, urine) may lead to changes in composition. Comment: Comment Normal [facility] Comment on above: Result Comment: Phys ician questions regarding Calculi Analysis contact [facility] at: [phone]. Performed By: #### L IPID, T7, TSH, CMP #### [facility] [address] [address] [address] Chuck Leach Composition Comment Normal [facility] Comment on above: Result Comment: Perc entage (Represents the % composition) Performed By: #### L IPID, T7, TSH, CMP #### [facility] [address] [address] [address] Chuck Leach Cystine Normal [facility] Comment on above: Performed By: #### L IPID, T7, TSH, CMP #### [facility] [address] [address] [address] Chuck Leach Disclaimer: Comment Normal [facility] Comment on above: Result Comment: This test was developed and its performance characteristics determined by [employer]. It has not been cleared or approved by the Food and Drug Administration. Performed By: #### L IPID, T7, TSH, CMP #### [facility] [address] [place] [address] Dr. Chuck Leach Dried Blood Normal [facility] Comment on above: Performed By: #### L IPID, T7, TSH, CMP #### [facility] [address] [address] [address] Chuck Leach Drug or Metabolite Normal [facility] Comment on above: Performed By: #### L IPID, T7, TSH, CMP #### [facility] [address] [address] [address] Chuck Leach Hydroxyapatite 100 % Normal [facility] Comment on above: Performed By: #### L IPID, T7, TSH, CMP #### [facility] [address] [address] [address] Chuck Laech Mg NH4 PO4 (Struvite) Normal [facility] Comment on above: Performed By: #### L IPID, T7, TSH, CMP #### [facility] [address] [place] [address] Dr. Chuck Leach MgHPO4 (New[place]ite) Normal [facility] Comment on above: Performed By: #### L IPID, T7, TSH, CMP #### [facility] [address] [address] [address] Chuck Leach Other component(s) Normal [facility] Comment on above: Performed By: #### L IPID, T7, TSH, CMP #### [facility] [address] [address] [address] Chuck Leach PDF . Normal [facility] Comment on above: Performed By: #### L IPID, T7, TSH, CMP #### [facility] [address] [address] [address] Chuck Leach Photo Comment [facility] Comment on above: Result Comment: Phot ograph will follow under a separate cover Performed By: #### L IPID, T7, TSH, CMP #### [facility] [address] [address] [address] Chuck Leach Please note: Comment Normal [facility] Comment on above: Result Comment: Calc ryan report will follow via computer, mail or solderer production line delivery. Performed By: #### L IPID, T7, TSH, CMP #### [facility] [address] [address] [address] Chuck Leach Size 1x1 [facility] Comment on above: Result Comment: Sing le piece received. Performed By: #### L IPID, T7, TSH, CMP #### [facility] [address] [address] [address] Chuck Leach Sodium Acid Urate Normal [facility] Comment on above: Performed By: #### L IPID, T7, TSH, CMP #### [facility] [address] [address] [address] Chuck Leach Source Comment [facility] Comment on above: Result Comment: Righ t Kidney Performed By: #### L IPID, T7, TSH, CMP #### [facility] [address] [address] [address] Chuck Leach Triamterene [facility] Comment on above: Performed By: #### L IPID, T7, TSH, CMP #### [facility] [address] [address] [address] Chuck Leach Uric Acid Normal [facility] Comment on above: Performed By: #### L IPID, T7, TSH, CMP #### [facility] [address] [address] [address] Chuck Leach Uric Acid Dihydrate Normal [facility] Comment on above: Performed By: #### L IPID, T7, TSH, CMP #### [facility] [address] [address] [address] Chuck Leach Weight <1 Normal [facility] Comment on above: Performed By: #### L IPID, T7, TSH, CMP #### [facility] [address] [address] [address] Chuck Leach Xanthine [facility] Comment on above: Performed By: #### L IPID, T7, TSH, CMP #### [facility] [address] [address] [address] Chuck Leach CYTOLOGYon 07-28-2022 SENT TO REF LAB 07/28/2022 [facility] Comment on above: Performed By: #### L IPID, T7, TSH, CMP #### [facility] [address] [address] [address] Chuck Leach Covid-19 PCR (CVDTB)on 07-10 SARS-CoV-2 (COVID-19) RNA GUSTAVO+probe Ql (Unsp spec) Not detected Normal NOT DETECTED [facility] Comment on above: Result Comment: This test is not yet approved or cleared by the [place] FDA. When there are no FDA-approved or cleared tests available, and other criteria are met, FDA can make tests available under an emergency access mechanism called an Emergency Use Authorization (EUA). The EUA for this test is supported by the [place] of Health and Human Service's (HHS's) declaration that circumstances exist to justify the emergency use of in vitro diagnostics for the detection and/or diagnosis of the virus that causes COVID-19. This EUA will remain in effect (meaning this test can be used) for the duration of the COVID-19 declaration justifying emergency of IVDs, unless it is terminated or revoked by FDA (after which the test may no longer be used). When diagnostic testing is negative, the possibility of a false negative should be considered in the context of a patient's recent exposures and the presence of clinical signs and symptoms consistent with SARS-CoV-2. Performed By: #### L IPID, T7, TSH, CMP #### [facility] [address] [place] [address] Dr. Chuck Leach CBC AUTO DIFFon 07-16-2022 BASO # 0.0 103/ul Normal 0.0-0.1 [facility] Comment on above: Performed By: #### C BC #### [facility] [address] [place] [address] Dr. Chuck Leach Basophils/100 WBC (Bld) 0.3 % Normal 0.2-2.[address] [facility] Comment on above: Performed By: #### C BC #### [facility] [address] [place] [address] Dr. Chuck Leach EO # 0.1 103/ul Normal 0.0-0.7 [facility] Comment on above: Performed By: #### C BC #### [facility] [address] [place] [address] Dr. Chuck Leach Eosinophils/100 WBC (Bld) 0.9 % Normal 0.9-7.0 [facility] Comment on above: Performed By: #### C BC #### [facility] [address] [place] [address] Dr. Chuck Leach Erythrocyte distribution width (RBC) [Ratio] 14.4 % Normal 11.0-15.0 [facility] Comment on above: Performed By: #### C BC #### [facility] [address] [place] [address] Dr. Chuck Leach Hematocrit (Bld) [Volume fraction] 40.9 % Normal 36.0-48.0 [facility] Comment on above: Performed By: #### C BC #### [facility] [address] [place] [address] Dr. Chuck Leach Hemoglobin (Bld) [Mass/Vol] 12.8 g/dL Normal 12.0-16.0 [facility] Comment on above: Performed By: #### C BC #### [facility] [address] [place] [address] Dr. Chuck Leach IG # 0.01 10e3/ul Normal 0.00-0.03 [facility] Comment on above: Performed By: #### C BC #### [facility] [address] [place] [address] Dr. Chuck Leach IG % 0.2 % Normal 0.0-0.5 [facility] Comment on above: Performed By: #### C BC #### [facility] [address] [place] [address] Dr. Chuck Leach LYMPH # 1.4 103/ul Normal 1.2-3.8 [facility] Comment on above: Performed By: #### C BC #### [facility] [address] [place] [address] Dr. Chuck Leach Lymphocytes/100 WBC (Bld) 23.7 % Normal 20.5-60.0 [facility] Comment on above: Performed By: #### C BC #### [facility] [address] [place] [address] Dr. Chuck Leach MANUAL DIFF REQ NO Normal [facility] Comment on above: Performed By: #### C BC #### [facility] [address] [place] [address] Dr. Chuck Leach MCH (RBC) [Entitic mass] 27.4 pg Normal 26.7-34.0 [facility] Comment on above: Performed By: #### C BC #### [facility] [address] [place] [address] Dr. Chuck Leach MCHC (RBC) [Mass/Vol] 31.3 g/dL Normal 29.9-35.2 [facility] Comment on above: Performed By: #### C BC #### [facility] [address] [place] [address] Dr. Chuck Leach MCV (RBC) [Entitic vol] 87.6 fL Normal 81.0-99.[address] [facility] Comment on above: Performed By: #### C BC #### [facility] [address] [address] [address] Chuck Leach MONO # 0.4 103/ul Normal 0.3-0.8 [facility] Comment on above: Performed By: #### C BC #### [facility] [address] [place] [address] Dr. Chuck Leach Monocytes/100 WBC (Bld) 7.3 % Normal 1.7-12.[address] [facility] Comment on above: Performed By: #### C BC #### [facility] [address] [place] [address] Dr. Chuck Leach NEUT # 3.9 103/ul Normal 1.4-6.5 [facility] Comment on above: Performed By: #### C BC #### [facility] [address] [place] [address] Dr. Chuck Leach Neutrophils/100 WBC (Bld) 67.6 % Normal 43.0-75.0 [facility] Comment on above: Performed By: #### C BC #### [facility] [address] [place] [address] Dr. Chuck Leach Platelet mean volume (Bld) [Entitic vol] 9.9 fL Normal 9.5-13.5 [facility] Comment on above: Performed By: #### C BC #### [facility] [address] [place] [address] Dr. Chuck Leach PLT 342 103/ul Normal 150-450 [facility] Comment on above: Performed By: #### C BC #### [facility] [address] [place] [address] Dr. Chuck Leach RBC 4.67 106/ul Normal 4.20-5.40 [facility] Comment on above: Performed By: #### C BC #### [facility] [address] [place] [address] Dr. Chuck Leach WBC 5.7 103/ul Normal 4.0-11.0 [facility] Comment on above: Performed By: #### C BC #### [facility] [address] [place] [address] Dr. Chuck Leach PROF CHEM 8 (BAS METB)on Anion gap [Moles/Vol] 10.9 mmol/L Normal [facility] Comment on above: Performed By: #### L IPID, T7, TSH, CMP #### [facility] [address] [place] [address] Dr. Chuck Leach Calcium [Mass/Vol] 8.9 mg/dL Normal 8.5-10.1 [facility] Comment on above: Performed By: #### L IPID, T7, TSH, CMP #### [facility] [address] [place] [address] Dr. Chuck Leach Chloride [Moles/Vol] 102 mmol/L Normal 98-107 [facility] Comment on above: Performed By: #### L IPID, T7, TSH, CMP #### [facility] [address] [place] [address] Dr. Chuck Leach CO2 [Moles/Vol] 24.6 mmol/L Normal 21.0-32.0 [facility] Comment on above: Performed By: #### L IPID, T7, TSH, CMP #### [facility] [address] [place] [address] Dr. Chuck Leach Creatinine [Mass/Vol] 0.77 mg/dL Normal 0.55-1.02 [facility] Comment on above: Performed By: #### L IPID, T7, TSH, CMP #### [facility] [address] [place] [address] Dr. Chuck Leach EGFR-AF TONGAN >60 Normal >=60 [facility] Comment on above: Performed By: #### L IPID, T7, TSH, CMP #### [facility] [address] [place] [address] Dr. Chuck Leach EGFR-NON AF TONGAN >60 Normal >=60 [facility] Comment on above: Performed By: #### L IPID, T7, TSH, CMP #### [facility] [address] [place] [address] Dr. Chuck Leach Glucose [Mass/Vol] 86 mg/dL Normal 74-106 [facility] Comment on above: Performed By: #### L IPID, T7, TSH, CMP #### [facility] [address] [address] [address] Chuck Leach Potassium [Moles/Vol] 3.5 mmol/L Normal 3.5-5.1 [facility] Comment on above: Performed By: #### L IPID, T7, TSH, CMP #### [facility] [address] [place] [address] Dr. Chuck Leach Sodium [Moles/Vol] 134 mmol/L Critically low 136-145 [facility] Comment on above: Performed By: #### L IPID, T7, TSH, CMP #### [facility] [address] [place] [address] Dr. Chuck Leach Urea nitrogen [Mass/Vol] 11.0 mg/dL Normal 7.0-18.0 [facility] Comment on above: Performed By: #### L IPID, T7, TSH, CMP #### [facility] [address] [place] [address] Dr. Chuck Leach Urea nitrogen/Creatinine [Mass ratio] 14.3 mg/mg Normal [facility] Comment on above: Performed By: #### L IPID, T7, TSH, CMP #### [facility] [address] [place] [address] Dr. Chuck Leach PROTIMEon 07-16-2022 INR Coag (PPP) [Relative time] 0.95 {INR} Normal [facility] Comment on above: Performed By: #### L IPID, T7, TSH, CMP #### [facility] [address] [place] [address] Dr. Chuck Leach INR GUIDELINES SEE BELOW Normal [facility] Comment on above: Result Comment: DAVID RED INR: 2.0 - 3.0 CONDITIONS NOT LISTED BELOW 2.5 - 3.5 FOR PROSTHETIC HEART VALVE REPLACEMENT 2.5 - 3.5 RECURRENT THROMBOSIS Performed By: #### L IPID, T7, TSH, CMP #### [facility] [address] [address] [address] Chuck Leach PT Coag (PPP) [Time] 10.3 s Normal 9.0-11.6 [facility] Comment on above: Performed By: #### L IPID, T7, TSH, CMP #### [facility] [address] [place], [place] [address] Dr. Chuck Leach PTTon 07-16-2022 aPTT Coag (Bld) [Time] 28.4 s Normal 22.3-36.2 [facility] Comment on above: Performed By: #### P T, PTT #### [facility] [address] [address] [address] Chuck Leach XR KUB 1 VIEWon 07-08-2022 XR KUB 1 VIEW EXAMINATION: XR KUB 1 VIEW HISTORY: Kidney stone on right; follow-up COMPARISON: XR KUB 06/09/2022 FINDINGS: KIDNEY/URETER - RIGHT: Stable 12 x 9 mm lobular calcification within superior pole of kidney. Stable right ureteral stent; no visible ureteral stones. KIDNEY/URETER - LEFT: No visible renal or ureteral calcifications; kidneys partially obscured by dense bowel content. PELVIS: Stable pelvic calcifications favoring phleboliths. BOWEL: No abnormal dilation or deviation. BONES: No acute abnormality. OTHER: Negative. No abnormal gaseous collections. IMPRESSION: 1. Stable right nephrolithiasis. 2. Stable right ureteral stent. Electronically authenticated by: VANESSA ASHTON Date: 2022-07-08 10:08 Normal [facility] XR KUB 1 VIEWon 06-09-2022 XR KUB 1 VIEW EXAMINATION: XR KUB 1 VIEW HISTORY: Urolithiasis COMPARISON: XR KUB 05/24/2022 FINDINGS: KIDNEY/URETER - RIGHT: Persistent 12 x 9 mm calcification within superior pole of kidney. Right ureteral stent appears stable. KIDNEY/URETER - LEFT: No visible renal or ureteral calcifications. PELVIS: No visible ureteral stones. Stable pelvic calcifications favoring phleboliths. BOWEL: No abnormal dilation or deviation. BONES: No acute abnormality. OTHER: Negative. No abnormal gaseous collections. IMPRESSION: 1. Stable right nephrolithiasis. 2. Stable right ureteral stent. Electronically authenticated by: VANESSA ASHTON Date: 2022-06-09 11:44 Normal [facility] Covid-19 PCR (CVDTB)on 05-11 SARS-CoV-2 (COVID-19) RNA GUSTAVO+probe Ql (Unsp spec) Not detected Normal NOT DETECTED [facility] Comment on above: Result Comment: This test is not yet approved or cleared by the [place] FDA. When there are no FDA-approved or cleared tests available, and other criteria are met, FDA can make tests available under an emergency access mechanism called an Emergency Use Authorization (EUA). The EUA for this test is supported by the [place] of Health and Human Service's (HHS's) declaration that circumstances exist to justify the emergency use of in vitro diagnostics for the detection and/or diagnosis of the virus that causes COVID-19. This EUA will remain in effect (meaning this test can be used) for the duration of the COVID-19 declaration justifying emergency of IVDs, unless it is terminated or revoked by FDA (after which the test may no longer be used). When diagnostic testing is negative, the possibility of a false negative should be considered in the context of a patient's recent exposures and the presence of clinical signs and symptoms consistent with SARS-CoV-2. Performed By: #### L IPID, T7, TSH, CMP #### [facility] [address] [place] [address] Dr. Chuck Leach XR KUB 1 VIEWon 05-24-2022 XR KUB 1 VIEW EXAMINATION: XR KUB 1 VIEW HISTORY: Kidney stone ; right ureteral stent COMPARISON: No relevant comparison available. FINDINGS: KIDNEY/URETER - RIGHT: 12 x 9 mm stone versus adjacent stones projecting over superior pole of kidney. Right ureteral stent. KIDNEY/URETER - LEFT: No visible renal or ureteral calcifications. PELVIS: No appreciable ureteral stone. Numerous small calcifications within lower lateral pelvis, left greater than right, favoring phleboliths. BOWEL: No abnormal dilation or deviation. BONES: No acute abnormality. OTHER: Negative. No abnormal gaseous collections. IMPRESSION: 1. Right ureteral stent; no visible ureteral stones. 2. Large stone within right kidney. No comparison studies. Electronically authenticated by: VANESSA ASHTON Date: 2022-05-24 08:54 Normal [facility] CALCULI, URINARYon 2 2,8 Dihydroxyadenine Normal [facility] Comment on above: Performed By: #### L IPID, T7, TSH, CMP #### [facility] [address] [address] [address] Chuck Leach Ammonium Acid Urate Normal [facility] Comment on above: Performed By: #### L IPID, T7, TSH, CMP #### [facility] [address] [address] [address] Chuck Leach Bilirubin Ql (U) [facility] Comment on above: Performed By: #### L IPID, T7, TSH, CMP #### [facility] [address] [address] [address] Chuck Leach Ca Oxalate Dihydrate 20 % [facility] Comment on above: Performed By: #### L IPID, T7, TSH, CMP #### [facility] [address] [address] [address] Chuck Leach CaHPO4 (Brushite) [facility] Comment on above: Performed By: #### L IPID, T7, TSH, CMP #### [facility] [address] [address] [address] Chuck Leach Calcium Bilirubinate [facility] Comment on above: Performed By: #### L IPID, T7, TSH, CMP #### [facility] [address] [address] [address] Chuck Leach Calcium Carbonate [facility] Comment on above: Performed By: #### L IPID, T7, TSH, CMP #### [facility] [address] [address] [address] Chuck Leach Calcium Oxalate Monohydrate 70 % [facility] Comment on above: Performed By: #### L IPID, T7, TSH, CMP #### [facility] [address] [address] [address] Chuck Leach Calcium Palmitate [facility] Comment on above: Performed By: #### L IPID, T7, TSH, CMP #### [facility] [address] [address] [address] Chuck Leach Calcium Phosphate [facility] Comment on above: Performed By: #### L IPID, T7, TSH, CMP #### [facility] [address] [address] [address] Chuck Leach Calcium Stearate Normal [facility] Comment on above: Performed By: #### L IPID, T7, TSH, CMP #### [facility] [address] [address] [address] Chuck Leach Carbonate Apatite Normal [facility] Comment on above: Performed By: #### L IPID, T7, TSH, CMP #### [facility] [address] [address] [address] Chuck Leach Cellular Material Normal [facility] Comment on above: Performed By: #### L IPID, T7, TSH, CMP #### [facility] [address] [address] [address] Chuck Leach Cholesterol Normal [facility] Comment on above: Performed By: #### L IPID, T7, TSH, CMP #### [facility] [address] [address] [address] Chuck Leach Color (U) Brown Normal [facility] Comment on above: Performed By: #### L IPID, T7, TSH, CMP #### [facility] [address] [address] [address] Chuck Leach Comment Normal [facility] Comment on above: Performed By: #### L IPID, T7, TSH, CMP #### [facility] [address] [address] [address] Chuck Leach Comment Comment Normal [facility] Comment on above: Result Comment: Calc ulus received in liquid. Wet calculi must be dried before analysis, which delays reporting of results. Leaving calculi in liquid (such as water, saline, blood, urine) may lead to changes in composition. Performed By: #### L IPID, T7, TSH, CMP #### [facility] [address] [address] [address] Chuck Leach Comment: Comment Normal [facility] Comment on above: Result Comment: Kevin rajan questions regarding Calculi Analysis contact [place] [employer] [facility] at: [phone]. Performed By: #### L IPID, T7, TSH, CMP #### [facility] [address] [address] [address] Chuck Leach Composition Comment Normal [facility] Comment on above: Result Comment: Perc entage (Represents the % composition) Performed By: #### L IPID, T7, TSH, CMP #### [facility] [address] [address] [address] Chuck Leach Cystine Normal [facility] Comment on above: Performed By: #### L IPID, T7, TSH, CMP #### [facility] [address] [address] [address] Chuck Leach Disclaimer: Comment Normal [facility] Comment on above: Result Comment: This test was developed and its performance characteristics determined by [employer]. It has not been cleared or approved by the Food and Drug Administration. Performed By: #### L IPID, T7, TSH, CMP #### [facility] [address] [address] [address] Chuck Leach Dried Blood Normal [facility] Comment on above: Performed By: #### L IPID, T7, TSH, CMP #### [facility] [address] [place] [address] Dr. Chuck Leach Drug or Metabolite Normal [facility] Comment on above: Performed By: #### L IPID, T7, TSH, CMP #### [facility] [address] [address] [address] Chuck Leach Hydroxyapatite 10 % Normal [facility] Comment on above: Performed By: #### L IPID, T7, TSH, CMP #### [facility] [address] [place] [address] Dr. Chuck Laech Mg NH4 PO4 (Struvite) [facility] Comment on above: Performed By: #### L IPID, T7, TSH, CMP #### [facility] [address] [place] [address] Dr. Chuck Leach MgHPO4 (Newberyite) Normal [facility] Comment on above: Performed By: #### L IPID, T7, TSH, CMP #### [facility] [address] [address] [address] Chuck Leach Other component(s) Normal [facility] Comment on above: Performed By: #### L IPID, T7, TSH, CMP #### [facility] [address] [address] [address] Chuck Leach PDF . Normal [facility] Comment on above: Performed By: #### L IPID, T7, TSH, CMP #### [facility] [address] [address] [address] Chuck Leach Photo Comment [facility] Comment on above: Result Comment: Phot ograph will follow under a separate cover Performed By: #### L IPID, T7, TSH, CMP #### [facility] [address] [address] [address] Chuck Leach Please note: Comment Normal [facility] Comment on above: Result Comment: Calc ryan report will follow via computer, mail or solderer production line delivery. Performed By: #### L IPID, T7, TSH, CMP #### [facility] [address] [address] [address] Chuck Leach Size 4x2 [facility] Comment on above: Result Comment: Mult iple pieces received. Dimensions of the largest piece reported. Performed By: #### L IPID, T7, TSH, CMP #### [facility] [address] [address] [address] Chuck Leach Sodium Acid Urate Normal [facility] Comment on above: Performed By: #### L IPID, T7, TSH, CMP #### [facility] [address] [address] [address] Chuck Leach Source Comment [facility] Comment on above: Result Comment: Not provided Performed By: #### L IPID, T7, TSH, CMP #### [facility] [address] [address] [address] Chuck Leach Triamterene [facility] Comment on above: Performed By: #### L IPID, T7, TSH, CMP #### [facility] [address] [address] [address] Chuck Leach Uric Acid Normal [facility] Comment on above: Performed By: #### L IPID, T7, TSH, CMP #### [facility] [address] [place] [address] Dr. Chuck Leach Uric Acid Dihydrate Normal [facility] Comment on above: Performed By: #### L IPID, T7, TSH, CMP #### [facility] [address] [address] [address] Chuck Leach Weight 139 mg Normal [facility] Comment on above: Performed By: #### L IPID, T7, TSH, CMP #### [facility] [address] [place] [address] Dr. Chuck Leach Xanthine [facility] Comment on above: Performed By: #### L IPID, T7, TSH, CMP #### [facility] [address] [place] [address] Dr. Chuck Leach CULTURE URINEon 04-21-2022 CULTURE URINE Culture Observations: NO GROWTH. Normal [facility] Comment on above: Performed By: #### L IPID, T7, TSH, CMP #### [facility] [address] [place] [address] Dr. Chuck Leach UA RANDOM W/MICROSCOPICon BACTERIA SMALL Abnormal NONE SEEN [facility] Comment on above: Performed By: #### L IPID, T7, TSH, CMP #### [facility] [address] [place] [address] Dr. Chuck eLach Bilirubin Ql (U) Negative Normal NEGATIVE [facility] Comment on above: Performed By: #### L IPID, T7, TSH, CMP #### [facility] [address] [place] [address] Dr. Chuck Leach CAST NONE SEEN Normal NONE SEEN [facility] Comment on above: Performed By: #### L IPID, T7, TSH, CMP #### [facility] [address] [place] [address] Dr. Chuck Leach Clarity (U) CLEAR Normal CLEAR [facility] Comment on above: Performed By: #### L IPID, T7, TSH, CMP #### [facility] [address] [address] [address] Chuck Leach Color (U) LT. YELLOW Normal YELLOW [facility] Comment on above: Performed By: #### L IPID, T7, TSH, CMP #### [facility] [address] [address] [address] Chuck Leach Crystals LM Nom (Urine sed) NONE SEEN Normal NONE SEEN [facility] Comment on above: Performed By: #### L IPID, T7, TSH, CMP #### [facility] [address] [address] [address] Chuck Leach Epithelial cells LM Ql (Urine sed) FEW Abnormal NONE SEEN /RARE [facility] Comment on above: Performed By: #### L IPID, T7, TSH, CMP #### [facility] [address] [address] [address] Chuck Leach Glucose Ql (U) Negative Normal NEGATIVE [facility] Comment on above: Performed By: #### L IPID, T7, TSH, CMP #### [facility] [address] [address] [address] Chuck Leach Hemoglobin Ql (U) LARGE Abnormal NEGATIVE [facility] Comment on above: Performed By: #### L IPID, T7, TSH, CMP #### [facility] [address] [address] [address] Chuck Leach Ketones Ql (U) Negative Normal NEGATIVE [facility] Comment on above: Performed By: #### L IPID, T7, TSH, CMP #### [facility] [address] [address] [address] Chuck Leach LEUKOCYTES LARGE Abnormal NEGATIVE [facility] Comment on above: Performed By: #### L IPID, T7, TSH, CMP #### [facility] [address] [address] [address] Chuck Leach MUCOUS NONE SEEN Normal NONE SEEN [facility] Comment on above: Performed By: #### L IPID, T7, TSH, CMP #### [facility] [address] [address] [address] Chuck Leach Nitrite Ql (U) Negative Normal NEGATIVE [facility] Comment on above: Performed By: #### L IPID, T7, TSH, CMP #### [facility] [address] [place] [address] Dr. Chuck Leach pH (U) 6.5 [pH] Normal 5-9 [facility] Comment on above: Performed By: #### L IPID, T7, TSH, CMP #### [facility] [address] [place] [address] Dr. Chuck Leach RBC 5-10 Abnormal 0-2 [facility] Comment on above: Performed By: #### L IPID, T7, TSH, CMP #### [facility] [address] [place] [address] Dr. Chuck Leach SPEC GRAVITY <=1.005 Abnormal 1.005-<=1.025 [facility] Comment on above: Performed By: #### L IPID, T7, TSH, CMP #### [facility] [address] [place] [address] Dr. Chuck Leach UA PROTEIN TRACE Normal NEGATIVE/ TRACE [facility] Comment on above: Performed By: #### L IPID, T7, TSH, CMP #### [facility] [address] [place] [address] Dr. Chuck Leach Urobilinogen Qn (U) 0.2 {Ava'U}/dL Normal 0.2 - 1. 0 [facility] Comment on above: Performed By: #### L IPID, T7, TSH, CMP #### [facility] [address] [place] [address] Dr. Chuck Leach WBC 20-50 Abnormal NONE SEEN [facility] Comment on above: Performed By: #### L IPID, T7, TSH, CMP #### [facility] [address] [place] [address] Dr. Chuck Leach CULTURE BLOODon 04-15-2022 Microscopic examination of blood, culture Culture Observations: Aerobic bottle positive on 04/11/22 Culture Observations: Anaerobic bottle positive 04/14 Isolate 1 Escherichia Coli Growth of ORGANISM 1 Escherichia Coli ANTIBIOTIC M.I.C RX STATUS Ampicillin >=32 R F Ampicillin/Sulbactam 4 S F Piperacillin/Tazobac araujo <=4 S F Cefazolin >=64 R F Ceftazidime 16 R F Ceftriaxone >=64 R F Ertapenem <=0.5 S F Imipenem <=0.25 S F Amikacin <=2 S F Gentamicin <=1 S F Tobramycin <=1 S F Ciprofloxacin >=4 R F Levofloxacin >=8 R F Trimethoprim/Sulfame thoxazole >=320 R F Normal [facility] Comment on above: Performed By: #### L IPID, T7, TSH, CMP #### [facility] [address] [place] [address] Dr. Chuck Leach CULTURE BLOODon 04-14-2022 Microscopic examination of blood, culture Culture Observations: No growth in anaerobic bottle at 5 days. Culture Observations: Aerobic bottle positive on 04/10/22. BCID= E Coli Culture Observations: Called to Kristyn Benites RN at 1630 04/10/22 by CV. Isolate 1 Escherichia Coli Growth of ORGANISM 1 Escherichia Coli ANTIBIOTIC M.I.C RX STATUS Ampicillin >=32 R F Ampicillin/Sulbactam 4 S F Piperacillin/Tazobac araujo <=4 S F Cefazolin >=64 R F Ceftazidime 16 R F Ceftriaxone >=64 R F Ertapenem <=0.5 S F Imipenem <=0.25 S F Amikacin <=2 S F Gentamicin <=1 S F Tobramycin <=1 S F Ciprofloxacin >=4 R F Levofloxacin >=8 R F Trimethoprim/Sulfame thoxazole >=320 R F Normal [facility] Comment on above: Performed By: #### L IPID, T7, TSH, CMP #### [facility] [address] [place] [address] Dr. Chuck Leach BNPon 04-11-2022 Natriuretic peptide B (Bld) [Mass/Vol] 5192.0 pg/mL Critically high <=900.0 [facility] Comment on above: Performed By: #### L IPID, T7, TSH, CMP #### [facility] [address] [place] [address] Dr. Chuck Leach CBC AUTO DIFFon 04-11-2022 BASO # 0.0 103/ul Normal 0.0-0.1 [facility] Comment on above: Performed By: #### L IPID, T7, TSH, CMP #### [facility] [address] [place] [address] Dr. Chuck Leach Basophils/100 WBC (Bld) 0.2 % Normal 0.2-2.[address] [facility] Comment on above: Performed By: #### L IPID, T7, TSH, CMP #### [facility] [address] [place] [address] Dr. Chuck Leach EO # 0.1 103/ul Normal 0.0-0.7 [facility] Comment on above: Performed By: #### L IPID, T7, TSH, CMP #### [facility] [address] [place] [address] Dr. Chuck Leach Eosinophils/100 WBC (Bld) 1.0 % Normal 0.9-7.0 [facility] Comment on above: Performed By: #### L IPID, T7, TSH, CMP #### [facility] [address] [place] [address] Dr. Chuck Leach Erythrocyte distribution width (RBC) [Ratio] 14.4 % Normal 11.0-15.0 [facility] Comment on above: Performed By: #### L IPID, T7, TSH, CMP #### [facility] [address] [place] [address] Dr. Chuck Leach Hematocrit (Bld) [Volume fraction] 29.9 % Critically low 36.0-48.0 [facility] Comment on above: Performed By: #### L IPID, T7, TSH, CMP #### [facility] [address] [place] [address] Dr. Chuck Leach Hemoglobin (Bld) [Mass/Vol] 9.7 g/dL Critically low 12.0-16.0 [facility] Comment on above: Performed By: #### L IPID, T7, TSH, CMP #### [facility] [address] [place] [address] Dr. Chuck Leach IG # 0.10 10e3/ul Critically high 0.00-0.03 [facility] Comment on above: Performed By: #### L IPID, T7, TSH, CMP #### [facility] [address] [address] [address] Chuck Leach IG % 0.9 % Critically high 0.0-0.5 [facility] Comment on above: Performed By: #### L IPID, T7, TSH, CMP #### [facility] [address] [place] [address] Dr. Chuck Leach LYMPH # 0.7 103/ul Critically low 1.2-3.8 [facility] Comment on above: Performed By: #### L IPID, T7, TSH, CMP #### [facility] [address] [place] [address] Dr. Chuck Leach Lymphocytes/100 WBC (Bld) 6.4 % Critically low 20.5-60.0 [facility] Comment on above: Performed By: #### L IPID, T7, TSH, CMP #### [facility] [address] [address] [address] Chuck Leach MANUAL DIFF REQ NO Normal [facility] Comment on above: Performed By: #### L IPID, T7, TSH, CMP #### [facility] [address] [place] [address] Dr. Chuck Leach MCH (RBC) [Entitic mass] 28.2 pg Normal 26.7-34.0 [facility] Comment on above: Performed By: #### L IPID, T7, TSH, CMP #### [facility] [address] [place] [address] Dr. Chuck Leach MCHC (RBC) [Mass/Vol] 32.4 g/dL Normal 29.9-35.2 [facility] Comment on above: Performed By: #### L IPID, T7, TSH, CMP #### [facility] [address] [place] [address] Dr. Chuck Leach MCV (RBC) [Entitic vol] 86.9 fL Normal 81.0-99.[address] [facility] Comment on above: Performed By: #### L IPID, T7, TSH, CMP #### [facility] [address] [place] [address] Dr. Chuck Leach MONO # 0.8 103/ul Normal 0.3-0.8 [facility] Comment on above: Performed By: #### L IPID, T7, TSH, CMP #### [facility] [address] [place] [address] Dr. Chuck Leach Monocytes/100 WBC (Bld) 7.6 % Normal 1.7-12.[address] [facility] Comment on above: Performed By: #### L IPID, T7, TSH, CMP #### [facility] [address] [place] [address] Dr. Chuck Leach NEUT # 9.0 103/ul Critically high 1.4-6.5 [facility] Comment on above: Performed By: #### L IPID, T7, TSH, CMP #### [facility] [address] [place] [address] Dr. Chuck Leach Neutrophils/100 WBC (Bld) 83.9 % Critically high 43.0-75.0 [facility] Comment on above: Performed By: #### L IPID, T7, TSH, CMP #### [facility] [address] [place] [address] Dr. Chuck Leach Platelet mean volume (Bld) [Entitic vol] 11.4 fL Normal 9.5-13.5 [facility] Comment on above: Performed By: #### L IPID, T7, TSH, CMP #### [facility] [address] [place] [address] Dr. Chuck Leach PLT 181 103/ul Normal 150-450 [facility] Comment on above: Performed By: #### L IPID, T7, TSH, CMP #### [facility] [address] [place] [address] Dr. Chuck Leach RBC 3.44 106/ul Critically low 4.20-5.40 [facility] Comment on above: Performed By: #### L IPID, T7, TSH, CMP #### [facility] [address] [place] [address] Dr. Chuck Leach WBC 10.7 103/ul Normal 4.0-11.0 [facility] Comment on above: Performed By: #### L IPID, T7, TSH, CMP #### [facility] [address] [place] [address] Dr. Chuck Leach PROF 14(COMP METB)on 022 Albumin [Mass/Vol] 2.0 g/dL Critically low 3.4-5.0 [facility] Comment on above: Performed By: #### L IPID, T7, TSH, CMP #### [facility] [address] [place] [address] Dr. Chuck Leach Albumin/Globulin [Mass ratio] 0.6 {ratio} Normal [facility] Comment on above: Performed By: #### L IPID, T7, TSH, CMP #### [facility] [address] [place] [address] Dr. Chuck Leach ALP [Catalytic activity/Vol] 212 U/L Critically high 46-116 [facility] Comment on above: Performed By: #### L IPID, T7, TSH, CMP #### [facility] [address] [place] [address] Dr. Chuck Leach ALT [Catalytic activity/Vol] 43 U/L Normal 14-59 [facility] Comment on above: Performed By: #### L IPID, T7, TSH, CMP #### [facility] [address] [place] [address] Dr. Chuck Leach Anion gap [Moles/Vol] 13.9 mmol/L Normal [facility] Comment on above: Performed By: #### L IPID, T7, TSH, CMP #### [facility] [address] [place] [address] Dr. Chuck Leach AST [Catalytic activity/Vol] 52 U/L Critically high 15-37 [facility] Comment on above: Performed By: #### L IPID, T7, TSH, CMP #### [facility] [address] [place] [address] Dr. Chuck Leach Bilirubin [Mass/Vol] 0.3 mg/dL Normal 0.2-1.0 [facility] Comment on above: Performed By: #### L IPID, T7, TSH, CMP #### [facility] [address] [address] [address] Chuck Leach Calcium [Mass/Vol] 7.9 mg/dL Critically low 8.5-10.1 [facility] Comment on above: Performed By: #### L IPID, T7, TSH, CMP #### [facility] [address] [address] [address] Chuck Leach Chloride [Moles/Vol] 111 mmol/L Critically high 98-107 [facility] Comment on above: Performed By: #### L IPID, T7, TSH, CMP #### [facility] [address] [address] [address] Chuck Leach CO2 [Moles/Vol] 19.7 mmol/L Critically low 21.0-32.0 [facility] Comment on above: Performed By: #### L IPID, T7, TSH, CMP #### [facility] [address] [address] [address] Chuck Leach Creatinine [Mass/Vol] 1.11 mg/dL Critically high 0.55-1.02 [facility] Comment on above: Performed By: #### L IPID, T7, TSH, CMP #### [facility] [address] [address] [address] Chuck Leach EGFR-AF TONGAN 58 mL/min/1.73m2 Critically low >=60 [facility] Comment on above: Performed By: #### L IPID, T7, TSH, CMP #### [facility] [address] [address] [address] Chuck Leach EGFR-NON AF TONGAN 48 mL/min/1.73m2 Critically low >=60 [facility] Comment on above: Performed By: #### L IPID, T7, TSH, CMP #### [facility] [address] [address] [address] Chuck Leach Globulin (S) [Mass/Vol] 3.2 g/dL Normal T [facility] Comment on above: Performed By: #### L IPID, T7, TSH, CMP #### [facility] [address] [address] [address] Chuck Leach Glucose [Mass/Vol] 104 mg/dL Normal 74-106 [facility] Comment on above: Performed By: #### L IPID, T7, TSH, CMP #### [facility] [address] [place] [address] Dr. Chuck Leach Potassium [Moles/Vol] 3.6 mmol/L Normal 3.5-5.1 [facility] Comment on above: Performed By: #### L IPID, T7, TSH, CMP #### [facility] [address] [place] [address] Dr. Chuck Leach Protein [Mass/Vol] 5.2 g/dL Critically low 6.4-8.2 [facility] Comment on above: Performed By: #### L IPID, T7, TSH, CMP #### [facility] [address] [place] [address] Dr. Chuck Leach Sodium [Moles/Vol] 141 mmol/L Normal 136-145 [facility] Comment on above: Performed By: #### L IPID, T7, TSH, CMP #### [facility] [address] [place] [address] Dr. Chuck Leach Urea nitrogen [Mass/Vol] 17.0 mg/dL Normal 7.0-18.0 [facility] Comment on above: Performed By: #### L IPID, T7, TSH, CMP #### [facility] [address] [place] [address] Dr. Chuck Leach Urea nitrogen/Creatinine [Mass ratio] 15.3 mg/mg Normal [facility] Comment on above: Performed By: #### L IPID, T7, TSH, CMP #### [facility] [address] [place] [address] Dr. Chuck Leach BLOOD CULTURE ID PANELon A. baumannii Not detected Normal NOT DETECTED [facility] Comment on above: Performed By: #### B CID2 #### [facility] [address] [place] [address] Dr. Chuck Leach Bacteriodes fragilis Not detected Normal NOT DETECTED [facility] Comment on above: Performed By: #### B CID2 #### [facility] [address] [place] [address] Dr. Chuck Leach BCID CONTROLS PASSED Normal [facility] Comment on above: Performed By: #### B CID2 #### [facility] [address] [place] [address] Dr. Chuck RAGSDALEDBTHD BLOOD CULTURE BOTTLE INFORMATION [facility] Comment on above: Performed By: #### B CID2 #### [facility] [address] [place] [address] Dr. Chuck RAGSDALEDHD1 ANTIMICROBIAL RESISTANCE GENES [facility] Comment on above: Performed By: #### B CID2 #### [facility] [address] [place] [address] Dr. Chuck Leach BCIDHD2 SEE BELOW [facility] Comment on above: Result Comment: Note : Antimicrobial resitance can occur via multiple mechanisms. A Not Detected result for the [employer] antomicrobial resistance gene assays does not indicate antimicrobial susceptibility. Subculturing is required for species identification and susceptibility testing of isolates. Performed By: #### B CID2 #### [facility] [address] [place] [address] Dr. Chuck Leach BCIDHD3 Positive [facility] Comment on above: Performed By: #### B CID2 #### [facility] [address] [place] [address] Dr. Chuck RAGSDALEDHD4 Negative [facility] Comment on above: Performed By: #### B CID2 #### [facility] [address] [place] [address] Dr. Chuck Leach BCIDHD5 YEAST [facility] Comment on above: Performed By: #### B CID2 #### [facility] [address] [place] [address] Dr. Chuck Leach Bottle Set: Set 2 [facility] Comment on above: Performed By: #### B CID2 #### [facility] [address] [place] [address] Dr. Chuck Leach Bottle: Aerobic Normal [facility] Comment on above: Performed By: #### B CID2 #### [facility] [address] [place] [address] Dr. Chuck Leach C. neoformans/gattii Not detected Normal NOT DETECTED [facility] Comment on above: Performed By: #### B CID2 #### [facility] [address] [place] [address] Dr. Chuck Leach Shweta albicans Not detected Normal NOT DETECTED [facility] Comment on above: Performed By: #### B CID2 #### [facility] [address] [place] [address] Dr. Chuck Leach Shweta auris Not detected Normal NOT DETECTED [facility] Comment on above: Performed By: #### B CID2 #### [facility] [address] [place] [address] Dr. Chuck Leach Shweta glabrata Not detected Normal NOT DETECTED [facility] Comment on above: Performed By: #### B CID2 #### [facility] [address] [place] [address] Dr. Chuck Leach Shweta Krusei Not detected Normal NOT DETECTED [facility] Comment on above: Performed By: #### B CID2 #### [facility] [address] [place] [address] Dr. Chuck Leach Shweta Parapsilosis Not detected Normal NOT DETECTED [facility] Comment on above: Performed By: #### B CID2 #### [facility] [address] [place] [address] Dr. Chuck Leach Shweta Tropicalis Not detected Normal NOT DETECTED [facility] Comment on above: Performed By: #### B CID2 #### [facility] [address] [place] [address] Dr. Chuck Leach CTX-M Resistant Gene Detected Abnormal NOT DETECTED [facility] Comment on above: Performed By: #### B CID2 #### [facility] [address] [place] [address] Dr. Chuck Leach E. Cloacae complex Not detected Normal NOT DETECTED [facility] Comment on above: Performed By: #### B CID2 #### [facility] [address] [place] [address] Dr. Chuck Leach E. faecalis Not detected Normal NOT DETECTED [facility] Comment on above: Performed By: #### B CID2 #### [facility] [address] [place] [address] Dr. Chuck Leach E. faecium Not detected Normal NOT DETECTED [facility] Comment on above: Performed By: #### B CID2 #### [facility] [address] [place] [address] Dr. Chuck Leach Enterobacteriaceae Detected Abnormal NOT DETECTED [facility] Comment on above: Performed By: #### B CID2 #### [facility] [address] [place] [address] Dr. Chuck Leach Escherichia coli Detected Abnormal NOT DETECTED [facility] Comment on above: Performed By: #### B CID2 #### [facility] [address] [place] [address] Dr. Chuck Leach H. influenzae Not detected Normal NOT DETECTED [facility] Comment on above: Performed By: #### B CID2 #### [facility] [address] [place] [address] Dr. Chuck Leach IMP Resistant Gene Not detected Normal NOT DETECTED [facility] Comment on above: Performed By: #### B CID2 #### [facility] [address] [place] [address] Dr. Chuck Leach K. oxytoca Not detected Normal NOT DETECTED [facility] Comment on above: Performed By: #### B CID2 #### [facility] [address] [place] [address] Dr. Chuck Leach K. pneumoniae Not detected Normal NOT DETECTED [facility] Comment on above: Performed By: #### B CID2 #### [facility] [address] [place] [address] Dr. Chuck Leach Klebsiella aerogenes Not detected Normal NOT DETECTED [facility] Comment on above: Performed By: #### B CID2 #### [facility] [address] [place] [address] Dr. Chuck Leach KPC Resistant Gene Not detected Normal NOT DETECTED [facility] Comment on above: Performed By: #### B CID2 #### [facility] [address] [place] [address] Dr. Chuck Leach List. monocytogenes Not detected Normal NOT DETECTED [facility] Comment on above: Performed By: #### B CID2 #### [facility] [address] [place] [address] Dr. Chuck Leach Mcr-1 Resistant Gene Not detected Normal NOT DETECTED [facility] Comment on above: Performed By: #### B CID2 #### [facility] [address] [place] [address] Dr. Chukc Leach mecA/C Not Applicable Normal NOT DETECTED [facility] Comment on above: Performed By: #### B CID2 #### [facility] [address] [place] [address] Dr. Chuck Leach mecA/C MREJ Not Applicable Normal NOT DETECTED [facility] Comment on above: Performed By: #### B CID2 #### [facility] [address] [place] [address] Dr. Chuck Leach N. meningitidis Not detected Normal NOT DETECTED [facility] Comment on above: Performed By: #### B CID2 #### [facility] [address] [place] [address] Dr. Chuck Leach NDM Resistant Gene Not detected Normal NOT DETECTED [facility] Comment on above: Performed By: #### B CID2 #### [facility] [address] [place] [address] Dr. Chuck Leach Oxa-48-like Not detected Normal NOT DETECTED [facility] Comment on above: Performed By: #### B CID2 #### [facility] [address] [place] [address] Dr. Chuck Leach Proteus Not detected Normal NOT DETECTED [facility] Comment on above: Performed By: #### B CID2 #### [facility] [address] [place] [address] Dr. Chuck Leach Pseud. aeruginosa Not detected Normal NOT DETECTED [facility] Comment on above: Performed By: #### B CID2 #### [facility] [address] [place] [address] Dr. Chuck Leach S. maltophilia Not detected Normal NOT DETECTED [facility] Comment on above: Performed By: #### B CID2 #### [facility] [address] [place] [address] Dr. Cuhck Leach Salmonella Not detected Normal NOT DETECTED [facility] Comment on above: Performed By: #### B CID2 #### [facility] [address] [place] [address] Dr. Chuck Leach Seratia marcescens Not detected Normal NOT DETECTED [facility] Comment on above: Performed By: #### B CID2 #### [facility] [address] [place] [address] Dr. Chuck Leach Site: unknown Normal [facility] Comment on above: Performed By: #### B CID2 #### [facility] [address] [place] [address] Dr. Chuck Leach Staph. aureus Not detected Normal NOT DETECTED [facility] Comment on above: Performed By: #### B CID2 #### [facility] [address] [place] [address] Dr. Chuck Leach Staph. epidermidis Not detected Normal NOT DETECTED [facility] Comment on above: Performed By: #### B CID2 #### [facility] [address] [place] [address] Dr. Chuck Leach Staph. lugdunensis Not detected Normal NOT DETECTED [facility] Comment on above: Performed By: #### B CID2 #### [facility] [address] [place] [address] Dr. Chuck Leach Staphylococcus Not detected Normal NOT DETECTED [facility] Comment on above: Performed By: #### B CID2 #### [facility] [address] [place] [address] Dr. Chuck Leach Strep. agalactiae Not detected Normal NOT DETECTED [facility] Comment on above: Performed By: #### B CID2 #### [facility] [address] [place] [address] Dr. Chuck Leach Strep. pneumoniae Not detected Normal NOT DETECTED [facility] Comment on above: Performed By: #### B CID2 #### [facility] [address] [place] [address] Dr. Chuck Leach Strep. pyogenes Not detected Normal NOT DETECTED [facility] Comment on above: Performed By: #### B CID2 #### [facility] [address] [place] [address] Dr. Chuck Leach Streptococcus Not detected Normal NOT DETECTED [facility] Comment on above: Performed By: #### B CID2 #### [facility] [address] [place] [address] Dr. Chuck Rosenthal/Alicia Resist. Gene Not Applicable Normal NOT DETECTED [facility] Comment on above: Performed By: #### B CID2 #### [facility] [address] [place] [address] Dr. Chuck Leach VIM Resistant Gene Not detected Normal NOT DETECTED [facility] Comment on above: Performed By: #### B CID2 #### [facility] [address] [place] [address] Dr. Chuck Leach CBC W MANUAL DIFFon 04-10-20 22 ATYPICAL LYMPH # Normal [facility] Comment on above: Performed By: #### L IPID, T7, TSH, CMP #### [facility] [address] [place] [address] Dr. Chuck Leach ATYPICAL LYMPH % Normal [facility] Comment on above: Performed By: #### L IPID, T7, TSH, CMP #### [facility] [address] [place] [address] Dr. Chuck Leach BAND # 2.1 103/ul Critically high 0.0-0.3 [facility] Comment on above: Performed By: #### L IPID, T7, TSH, CMP #### [facility] [address] [place] [address] Dr. Chuck Leach BAND % 14 % Critically high 0-5 [facility] Comment on above: Performed By: #### L IPID, T7, TSH, CMP #### [facility] [address] [place] [address] Dr. Chuck COOPEROM # 0.00 103/ul Normal 0.00-0.10 [facility] Comment on above: Performed By: #### L IPID, T7, TSH, CMP #### [facility] [address] [address] [address] Chuck Leach BASOM % 0.0 % Critically low 0.2-2.0 [facility] Comment on above: Performed By: #### L IPID, T7, TSH, CMP #### [facility] [address] [place] [address] Dr. Chuck Leach BLAST # Normal [facility] Comment on above: Performed By: #### L IPID, T7, TSH, CMP #### [facility] [address] [place] [address] Dr. Chuck Leach BLAST % Normal [facility] Comment on above: Performed By: #### L IPID, T7, TSH, CMP #### [facility] [address] [place] [address] Dr. Chuck Leach CORRECTED WBC Normal 4.0-11.0 [facility] Comment on above: Performed By: #### L IPID, T7, TSH, CMP #### [facility] [address] [place] [address] Dr. Chuck Leach EOS # 0.00 103/ul Normal 0.00-0.70 [facility] Comment on above: Performed By: #### L IPID, T7, TSH, CMP #### [facility] [address] [place] [address] Dr. Chuck Leach EOS% 0.0 % Critically low 0.9-7.0 [facility] Comment on above: Performed By: #### L IPID, T7, TSH, CMP #### [facility] [address] [place] [address] Dr. Chuck Leach HCT 29.3 % Critically low 36.0-48.0 [facility] Comment on above: Performed By: #### L IPID, T7, TSH, CMP #### [facility] [address] [place] [address] Dr. Chuck Leach HGB 9.4 g/dl Critically low 12.0-16.0 [facility] Comment on above: Performed By: #### L IPID, T7, TSH, CMP #### [facility] [address] [place] [address] Dr. Chuck Leach LYMPHM # 0.44 103/ul Critically low 1.20-3.80 [facility] Comment on above: Performed By: #### L IPID, T7, TSH, CMP #### [facility] [address] [place] [address] Dr. Chuck Leach LYMPHM% 3.0 % Critically low 20.5-60.0 [facility] Comment on above: Performed By: #### L IPID, T7, TSH, CMP #### [facility] [address] [place] [address] Dr. Chuck Leach MCH 27.7 pg Normal 26.7-34.0 [facility] Comment on above: Performed By: #### L IPID, T7, TSH, CMP #### [facility] [address] [place] [address] Dr. Chuck Leach MCHC 32.1 g/dl Normal 29.9-35.2 [facility] Comment on above: Performed By: #### L IPID, T7, TSH, CMP #### [facility] [address] [place] [address] Dr. Chuck Leach MCV 86.4 fL Normal 81.0-99.0 [facility] Comment on above: Performed By: #### L IPID, T7, TSH, CMP #### [facility] [address] [place] [address] Dr. Chuck Leach METAMYELOCYTE # Normal [facility] Comment on above: Performed By: #### L IPID, T7, TSH, CMP #### [facility] [address] [place] [address] Dr. Chuck Leach METAMYELOCYTE % Normal [facility] Comment on above: Performed By: #### L IPID, T7, TSH, CMP #### [facility] [address] [place] [address] Dr. Chuck Leach MONOM# 0.59 103/ul Normal 0.30-0.80 [facility] Comment on above: Performed By: #### L IPID, T7, TSH, CMP #### [facility] [address] [place] [address] Dr. Chuck Leach MONOM% 4.0 % Normal 1.7-12.0 [facility] Comment on above: Performed By: #### L IPID, T7, TSH, CMP #### [facility] [address] [place] [address] Dr. Chuck Leach MPV 10.8 fL Normal 9.5-13.5 [facility] Comment on above: Performed By: #### L IPID, T7, TSH, CMP #### [facility] [address] [place] [address] Dr. Chuck Leach MYELOCYTE # Normal [facility] Comment on above: Performed By: #### L IPID, T7, TSH, CMP #### [facility] [address] [place] [address] Dr. Chuck Leach MYELOCYTE % Normal [facility] Comment on above: Performed By: #### L IPID, T7, TSH, CMP #### [facility] [address] [place] [address] Dr. Chuck Leach NRBC Normal [facility] Comment on above: Performed By: #### L IPID, T7, TSH, CMP #### [facility] [address] [place] [address] Dr. Chuck Leach PLT 177 103/ul Normal 150-450 [facility] Comment on above: Performed By: #### L IPID, T7, TSH, CMP #### [facility] [address] [place] [address] Dr. Chuck Leach RBC 3.39 106/ul Critically low 4.20-5.40 [facility] Comment on above: Performed By: #### L IPID, T7, TSH, CMP #### [facility] [address] [address] [address] Chuck Leach RDW 14.1 % Normal 11.0-15.0 [facility] Comment on above: Performed By: #### L IPID, T7, TSH, CMP #### [facility] [address] [place] [address] Dr. Chuck Leach SEG # 11.69 103/ul Critically high 1.40-6.50 [facility] Comment on above: Performed By: #### L IPID, T7, TSH, CMP #### [facility] [address] [place] [address] Dr. Chuck Leach SEG % 79.0 % Critically high 43.0-75.0 [facility] Comment on above: Performed By: #### L IPID, T7, TSH, CMP #### [facility] [address] [place] [address] Dr. Chuck Leach TOXIC GRANULATION 2+ Normal [facility] Comment on above: Performed By: #### L IPID, T7, TSH, CMP #### [facility] [address] [place] [address] Dr. Chuck Leach WBC 14.8 103/ul Critically high 4.0-11.0 [facility] Comment on above: Performed By: #### L IPID, T7, TSH, CMP #### [facility] [address] [place] [address] Dr. Chuck Leach PROF 14(COMP METB)on 022 Albumin [Mass/Vol] 2.1 g/dL Critically low 3.4-5.0 [facility] Comment on above: Performed By: #### L IPID, T7, TSH, CMP #### [facility] [address] [place] [address] Dr. Chuck Leach Albumin/Globulin [Mass ratio] 0.7 {ratio} Normal [facility] Comment on above: Performed By: #### L IPID, T7, TSH, CMP #### [facility] [address] [address] [address] Chuck Leach ALP [Catalytic activity/Vol] 94 U/L Normal 46-116 [facility] Comment on above: Performed By: #### L IPID, T7, TSH, CMP #### [facility] [address] [address] [address] Chuck Leach ALT [Catalytic activity/Vol] 16 U/L Normal 14-59 [facility] Comment on above: Performed By: #### L IPID, T7, TSH, CMP #### [facility] [address] [address] [address] Chuck Leach Anion gap [Moles/Vol] 13.0 mmol/L Normal [facility] Comment on above: Performed By: #### L IPID, T7, TSH, CMP #### [facility] [address] [place] [address] Dr. Chuck Leach AST [Catalytic activity/Vol] 14 U/L Critically low 15-37 [facility] Comment on above: Performed By: #### L IPID, T7, TSH, CMP #### [facility] [address] [address] [address] Chuck Leach Bilirubin [Mass/Vol] 0.3 mg/dL Normal 0.2-1.0 [facility] Comment on above: Performed By: #### L IPID, T7, TSH, CMP #### [facility] [address] [address] [address] Chuck Leach Calcium [Mass/Vol] 7.5 mg/dL Critically low 8.5-10.1 [facility] Comment on above: Performed By: #### L IPID, T7, TSH, CMP #### [facility] [address] [address] [address] Chuck Leach Chloride [Moles/Vol] 109 mmol/L Critically high 98-107 [facility] Comment on above: Performed By: #### L IPID, T7, TSH, CMP #### [facility] [address] [address] [address] Chuck Leach CO2 [Moles/Vol] 20.4 mmol/L Critically low 21.0-32.0 [facility] Comment on above: Performed By: #### L IPID, T7, TSH, CMP #### [facility] [address] [place] [address] Dr. Chuck Leach Creatinine [Mass/Vol] 1.41 mg/dL Critically high 0.55-1.02 [facility] Comment on above: Performed By: #### L IPID, T7, TSH, CMP #### [facility] [address] [place] [address] Dr. Chuck Leach EGFR-AF TONGAN 44 mL/min/1.73m2 Critically low >=60 [facility] Comment on above: Performed By: #### L IPID, T7, TSH, CMP #### [facility] [address] [place] [address] Dr. Chuck Leach EGFR-NON AF TONGAN 37 mL/min/1.73m2 Critically low >=60 [facility] Comment on above: Performed By: #### L IPID, T7, TSH, CMP #### [facility] [address] [place] [address] Dr. Chuck Leach Globulin (S) [Mass/Vol] 3.1 g/dL Normal [facility] Comment on above: Performed By: #### L IPID, T7, TSH, CMP #### [facility] [address] [place] [address] Dr. Chuck Leach Glucose [Mass/Vol] 112 mg/dL Critically high 74-[address] [facility] Comment on above: Performed By: #### L IPID, T7, TSH, CMP #### [facility] [address] [place] [address] Dr. Chuck Leach Potassium [Moles/Vol] 3.4 mmol/L Critically low 3.5-5.1 [facility] Comment on above: Performed By: #### L IPID, T7, TSH, CMP #### [facility] [address] [place] [address] Dr. Chuck Leach Protein [Mass/Vol] 5.2 g/dL Critically low 6.4-8.2 [facility] Comment on above: Performed By: #### L IPID, T7, TSH, CMP #### [facility] [address] [address] [address] Chuck Leach Sodium [Moles/Vol] 139 mmol/L Normal 136-145 [facility] Comment on above: Performed By: #### L IPID, T7, TSH, CMP #### [facility] [address] [address] [address] Chuck Leach Urea nitrogen [Mass/Vol] 27.0 mg/dL Critically high 7.0-18.0 [facility] Comment on above: Performed By: #### L IPID, T7, TSH, CMP #### [facility] [address] [place] [address] Dr. Chuck Leach Urea nitrogen/Creatinine [Mass ratio] 19.1 mg/mg Normal [facility] Comment on above: Performed By: #### L IPID, T7, TSH, CMP #### [facility] [address] [place] [address] Dr. Chuck Leach BNPon 04-09-2022 Natriuretic peptide B (Bld) [Mass/Vol] 2840.0 pg/mL Critically high <=900.0 [facility] Comment on above: Performed By: #### L IPID, T7, TSH, CMP #### [facility] [address] [place] [address] Dr. Chuck Leach CARDIAC THAD ADMITon 022 CK [Catalytic activity/Vol] 115 U/L Normal 26-192 [facility] Comment on above: Performed By: #### L IPID, T7, TSH, CMP #### [facility] [address] [place] [address] Dr. Chuck Leach CK.MB [Mass/Vol] 0.90 ng/mL Normal <=3.60 [facility] Comment on above: Performed By: #### L IPID, T7, TSH, CMP #### [facility] [address] [place] [address] Dr. Chuck Leach HSTROP 24.7 pg/mL Normal 4.0-51.3 [facility] Comment on above: Result Comment: CUT- OFF POINTS HAVE BEEN ESTABLISHED BASED ON THE FOURTH UNIVERSAL DEFINITIONS OF MYOCARDIAL INFARCTION. THE UPPER REFERENCE LIMIT (URL) OF TROPONIN, DEFINED THE 99TH PERCENTILE OF cTnI DISTRIBUTION IN A REFERENCE POPULATION, HAS BEEN CONFIRMED THE DECISION THRESHOLD FOR [place] DIAGNOSIS. Performed By: #### L IPID, T7, TSH, CMP #### [facility] [address] [address] [address] Chuck Leach LESLEY 154 ng/mL Critically high 9-82 [facility] Comment on above: Performed By: #### L IPID, T7, TSH, CMP #### [facility] [address] [address] [address] Chuck Leach CBC W MANUAL DIFFon 04-09-20 22 ATYPICAL LYMPH # Normal [facility] Comment on above: Performed By: #### L IPID, T7, TSH, CMP #### [facility] [address] [address] [address] Chuck Leach ATYPICAL LYMPH % Normal [facility] Comment on above: Performed By: #### L IPID, T7, TSH, CMP #### [facility] [address] [address] [address] Chuck Leach BAND # 0.7 103/ul Critically high 0.0-0.3 [facility] Comment on above: Performed By: #### L IPID, T7, TSH, CMP #### [facility] [address] [address] [address] Chuck Leach BAND % 3 % Normal 0-5 [facility] Comment on above: Performed By: #### L IPID, T7, TSH, CMP #### [facility] [address] [address] [address] Chuck Leach BASOM # 0.00 103/ul Normal 0.00-0.10 [facility] Comment on above: Performed By: #### L IPID, T7, TSH, CMP #### [facility] [address] [address] [address] Chuck Leach BASOM % 0.0 % Critically low 0.2-2.0 [facility] Comment on above: Performed By: #### L IPID, T7, TSH, CMP #### [facility] [address] [address] [address] Chuck Leach BLAST # Normal [facility] Comment on above: Performed By: #### L IPID, T7, TSH, CMP #### [facility] [address] [address] [address] Chuck Leach BLAST % Normal [facility] Comment on above: Performed By: #### L IPID, T7, TSH, CMP #### [facility] [address] [address] [address] Chuck Leach CORRECTED WBC Normal 4.0-11.0 [facility] Comment on above: Performed By: #### L IPID, T7, TSH, CMP #### [facility] [address] [place] [address] Dr. Chuck Leach EOS # 0.23 103/ul Normal 0.00-0.70 [facility] Comment on above: Performed By: #### L IPID, T7, TSH, CMP #### [facility] [address] [place] [address] Dr. Chuck Leach EOS% 1.0 % Normal 0.9-7.0 [facility] Comment on above: Performed By: #### L IPID, T7, TSH, CMP #### [facility] [address] [place] [address] Dr. Chuck Leach HCT 35.2 % Critically low 36.0-48.0 [facility] Comment on above: Performed By: #### L IPID, T7, TSH, CMP #### [facility] [address] [address] [address] Chuck Leach HGB 11.4 g/dl Critically low 12.0-16.0 [facility] Comment on above: Performed By: #### L IPID, T7, TSH, CMP #### [facility] [address] [place] [address] Dr. Chuck Leach LYMPHM # 0.69 103/ul Critically low 1.20-3.80 [facility] Comment on above: Performed By: #### L IPID, T7, TSH, CMP #### [facility] [address] [address] [address] Chuck Leach LYMPHM% 3.0 % Critically low 20.5-60.0 [facility] Comment on above: Performed By: #### L IPID, T7, TSH, CMP #### [facility] [address] [address] [address] Chuck Leach MCH 27.6 pg Normal 26.7-34.0 [facility] Comment on above: Performed By: #### L IPID, T7, TSH, CMP #### [facility] [address] [place] [address] Dr. Chuck Leach MCHC 32.4 g/dl Normal 29.9-35.2 [facility] Comment on above: Performed By: #### L IPID, T7, TSH, CMP #### [facility] [address] [place] [address] Dr. Chuck Leach MCV 85.2 fL Normal 81.0-99.0 [facility] Comment on above: Performed By: #### L IPID, T7, TSH, CMP #### [facility] [address] [place] [address] Dr. Chuck Leach METAMYELOCYTE # Normal [facility] Comment on above: Performed By: #### L IPID, T7, TSH, CMP #### [facility] [address] [place] [address] Dr. Chuck Leach METAMYELOCYTE % Normal [facility] Comment on above: Performed By: #### L IPID, T7, TSH, CMP #### [facility] [address] [place] [address] Dr. Chuck Leach MONOM# 0.46 103/ul Normal 0.30-0.80 [facility] Comment on above: Performed By: #### L IPID, T7, TSH, CMP #### [facility] [address] [place] [address] Dr. Chuck Leach MONOM% 2.0 % Normal 1.7-12.0 [facility] Comment on above: Performed By: #### L IPID, T7, TSH, CMP #### [facility] [address] [address] [address] Chuck Leach MPV 10.8 fL Normal 9.5-13.5 [facility] Comment on above: Performed By: #### L IPID, T7, TSH, CMP #### [facility] [address] [address] [address] Chuck Leach MYELOCYTE # Normal [facility] Comment on above: Performed By: #### L IPID, T7, TSH, CMP #### [facility] [address] [address] [address] Chuck Leach MYELOCYTE % Normal [facility] Comment on above: Performed By: #### L IPID, T7, TSH, CMP #### [facility] [address] [address] [address] Chuck Leach NRBC Normal [facility] Comment on above: Performed By: #### L IPID, T7, TSH, CMP #### [facility] [address] [place] [address] Dr. Chuck Leach PLT 226 103/ul Normal 150-450 [facility] Comment on above: Performed By: #### L IPID, T7, TSH, CMP #### [facility] [address] [address] [address] Chuck Leach RBC 4.13 106/ul Critically low 4.20-5.40 [facility] Comment on above: Performed By: #### L IPID, T7, TSH, CMP #### [facility] [address] [place] [address] Dr. Chuck Leach RDW 14.1 % Normal 11.0-15.0 [facility] Comment on above: Performed By: #### L IPID, T7, TSH, CMP #### [facility] [address] [place] [address] Dr. Chuck Leach SEG # 20.84 103/ul Critically high 1.40-6.50 [facility] Comment on above: Performed By: #### L IPID, T7, TSH, CMP #### [facility] [address] [address] [address] Chuck Leach SEG % 91.0 % Critically high 43.0-75.0 [facility] Comment on above: Performed By: #### L IPID, T7, TSH, CMP #### [facility] [address] [address] [address] Chuck Leach TOXIC GRANULATION 2+ Normal [facility] Comment on above: Performed By: #### L IPID, T7, TSH, CMP #### [facility] [address] [address] [address] Chuck Leach WBC 22.9 103/ul Critically high 4.0-11.0 [facility] Comment on above: Performed By: #### L IPID, T7, TSH, CMP #### [facility] [address] [address] [address] Chuck Leach CULTURE URINEon 04-09-2022 CULTURE URINE Culture Observations: No growth Normal [facility] Comment on above: Performed By: #### L IPID, T7, TSH, CMP #### [facility] [address] [address] [address] Chuck Leach [facility]on SARS-CoV-2 (COVID-19) RNA GUSTAVO+probe Ql (Unsp spec) Not detected Normal NOT DETECTED [facility] Comment on above: Result Comment: When diagnostic testing is negative, the possibility of a false negative should be considered in the context of a patient's recent exposures and the presence of clinical signs and symptoms consistent with SARS-CoV-2. This test is not yet approved or cleared by the [place] FDA. When there are no FDA-approved or cleared tests available, and other criteria are met, FDA can make tests available under an emergency access mechanism called an Emergency Use Authorization (EUA). The EUA for this test is supported by the [employer] Director of Health and Human Service's declaration that circumstances exist to justify the emergency use of in vitro diagnostics for the detection and/or diagnosis of the virus that causes COVID-19. This EUA will remain in effect for the duration of the COVID-19 declaration justifying emergency of IVDs, unless it is terminated or revoked by the FDA (after which the test may no longer be used). Performed By: #### L IPID, T7, TSH, CMP #### [facility] [address] [place] [address] Dr. Chuck Leach LACTATE/LACTIC ACIDon 2021 Lactate [Moles/Vol] 1.1 mmol/L Normal 0.4-1.9 [facility] Comment on above: Performed By: #### L IPID, T7, TSH, CMP #### [facility] [address] [place] [address] Dr. Chuck Leach PROF 14(COMP METB)on 022 Albumin [Mass/Vol] 3.2 g/dL Critically low 3.4-5.0 [facility] Comment on above: Performed By: #### L IPID, T7, TSH, CMP #### [facility] [address] [place] [address] Dr. Chuck Leach Albumin/Globulin [Mass ratio] 0.8 {ratio} Normal [facility] Comment on above: Performed By: #### L IPID, T7, TSH, CMP #### [facility] [address] [place] [address] Dr. Chuck Leach ALP [Catalytic activity/Vol] 104 U/L Normal 46-116 [facility] Comment on above: Performed By: #### L IPID, T7, TSH, CMP #### [facility] [address] [place] [address] Dr. Chuck Leach ALT [Catalytic activity/Vol] 26 U/L Normal 14-59 [facility] Comment on above: Performed By: #### L IPID, T7, TSH, CMP #### [facility] [address] [place] [address] Dr. Chuck Leach Anion gap [Moles/Vol] 15.7 mmol/L Normal [facility] Comment on above: Performed By: #### L IPID, T7, TSH, CMP #### [facility] [address] [place] [address] Dr. Chuck Leach AST [Catalytic activity/Vol] 19 U/L Normal 15-37 [facility] Comment on above: Performed By: #### L IPID, T7, TSH, CMP #### [facility] [address] [address] [address] Chuck Leach Bilirubin [Mass/Vol] 0.6 mg/dL Normal 0.2-1.0 [facility] Comment on above: Performed By: #### L IPID, T7, TSH, CMP #### [facility] [address] [place] [address] Dr. Chuck Leach Calcium [Mass/Vol] 8.8 mg/dL Normal 8.5-10.1 [facility] Comment on above: Performed By: #### L IPID, T7, TSH, CMP #### [facility] [address] [place] [address] Dr. Chuck Leach Chloride [Moles/Vol] 103 mmol/L Normal 98-107 [facility] Comment on above: Performed By: #### L IPID, T7, TSH, CMP #### [facility] [address] [place] [address] Dr. Chuck Leach CO2 [Moles/Vol] 23.9 mmol/L Normal 21.0-32.0 [facility] Comment on above: Performed By: #### L IPID, T7, TSH, CMP #### [facility] [address] [place] [address] Dr. Chuck Leach Creatinine [Mass/Vol] 2.13 mg/dL Critically high 0.55-1.02 [facility] Comment on above: Performed By: #### L IPID, T7, TSH, CMP #### [facility] [address] [place] [address] Dr. Chuck Leach EGFR-AF TONGAN 28 mL/min/1.73m2 Critically low >=60 [facility] Comment on above: Performed By: #### L IPID, T7, TSH, CMP #### [facility] [address] [place] [address] Dr. Chuck Leach EGFR-NON AF TONGAN 23 mL/min/1.73m2 Critically low >=60 [facility] Comment on above: Performed By: #### L IPID, T7, TSH, CMP #### [facility] [address] [address] [address] Chuck Leach Globulin (S) [Mass/Vol] 4.0 g/dL Normal [facility] Comment on above: Performed By: #### L IPID, T7, TSH, CMP #### [facility] [address] [place] [address] Dr. Chuck Leach Glucose [Mass/Vol] 115 mg/dL Critically high 74-[address] [facility] Comment on above: Performed By: #### L IPID, T7, TSH, CMP #### [facility] [address] [place] [address] Dr. Chuck Leach Potassium [Moles/Vol] 3.6 mmol/L Normal 3.5-5.1 [facility] Comment on above: Performed By: #### L IPID, T7, TSH, CMP #### [facility] [address] [place] [address] Dr. Chuck Leach Protein [Mass/Vol] 7.2 g/dL Normal 6.4-8.2 [facility] Comment on above: Performed By: #### L IPID, T7, TSH, CMP #### [facility] [address] [place] [address] Dr. Chuck Leach Sodium [Moles/Vol] 139 mmol/L Normal 136-145 [facility] Comment on above: Performed By: #### L IPID, T7, TSH, CMP #### [facility] [address] [place] [address] Dr. Chuck Leach Urea nitrogen [Mass/Vol] 37.0 mg/dL Critically high 7.0-18.0 [facility] Comment on above: Performed By: #### L IPID, T7, TSH, CMP #### [facility] [address] [place] [address] Dr. Chuck Leach Urea nitrogen/Creatinine [Mass ratio] 17.4 mg/mg Normal [facility] Comment on above: Performed By: #### L IPID, T7, TSH, CMP #### [facility] [address] [place] [address] Dr. Chuck Leach PROTIMEon 04-09-2022 INR Coag (PPP) [Relative time] 1.17 {INR} Normal [facility] Comment on above: Performed By: #### L IPID, T7, TSH, CMP #### [facility] [address] [place] [address] Dr. Chuck Leach INR GUIDELINES SEE BELOW Normal [facility] Comment on above: Result Comment: DAVID RED INR: 2.0 - 3.0 CONDITIONS NOT LISTED BELOW 2.5 - 3.5 FOR PROSTHETIC HEART VALVE REPLACEMENT 2.5 - 3.5 RECURRENT THROMBOSIS Performed By: #### L IPID, T7, TSH, CMP #### [facility] [address] [place] [address] Dr. Chuck Leach PT Coag (PPP) [Time] 12.5 s Critically high 9.0-11.6 [facility] Comment on above: Performed By: #### L IPID, T7, TSH, CMP #### [facility] [address] [place] [address] Dr. Chuck Leach PTTon 04-09-2022 aPTT Coag (Bld) [Time] 32.4 s Normal 22.3-36.2 Th e [facility] Comment on above: Performed By: #### L IPID, T7, TSH, CMP #### [facility] [address] [place] [address] Dr. Chuck Leach UA RANDOM W/MICROSCOPICon BACTERIA SMALL Abnormal NONE SEEN [facility] Comment on above: Performed By: #### L IPID, T7, TSH, CMP #### [facility] [address] [place] [address] Dr. Chuck Leach Bilirubin Ql (U) Negative Normal NEGATIVE [facility] Comment on above: Performed By: #### L IPID, T7, TSH, CMP #### [facility] [address] [place] [address] Dr. Chuck Leach CAST SEEN Abnormal NONE SEEN [facility] Comment on above: Performed By: #### L IPID, T7, TSH, CMP #### [facility] [address] [address] [address] Chuck Leach Clarity (U) CLEAR Normal CLEAR [facility] Comment on above: Performed By: #### L IPID, T7, TSH, CMP #### [facility] [address] [address] [address] Chuck Leach COARSE GRANULAR CAST FEW Normal [facility] Comment on above: Performed By: #### L IPID, T7, TSH, CMP #### [facility] [address] [address] [address] Chuck Leach Color (U) YELLOW Normal YELLOW [facility] Comment on above: Performed By: #### L IPID, T7, TSH, CMP #### [facility] [address] [place] [address] Dr. Chuck Leach Crystals LM Nom (Urine sed) NONE SEEN Normal NONE SEEN [facility] Comment on above: Performed By: #### L IPID, T7, TSH, CMP #### [facility] [address] [place] [address] Dr. Chuck Leach Epithelial cells LM Ql (Urine sed) FEW Abnormal NONE SEEN /RARE [facility] Comment on above: Performed By: #### L IPID, T7, TSH, CMP #### [facility] [address] [place] [address] Dr. Chuck Leach Glucose Ql (U) Negative Normal NEGATIVE [facility] Comment on above: Performed By: #### L IPID, T7, TSH, CMP #### [facility] [facility] [address] [address] [address] Chuck Leach Hemoglobin Ql (U) LARGE Abnormal NEGATIVE [facility] Comment on above: Performed By: #### L IPID, T7, TSH, CMP #### [facility] [address] [place] [address] Dr. Chuck Leach HYALINE CAST FEW Normal [facility] Comment on above: Performed By: #### L IPID, T7, TSH, CMP #### [facility] [address] [place] [address] Dr. Chuck Leach Ketones Ql (U) TRACE Abnormal NEGATIVE [facility] Comment on above: Performed By: #### L IPID, T7, TSH, CMP #### [facility] [address] [address] [address] Chuck Leach LEUKOCYTES SMALL Abnormal NEGATIVE [facility] Comment on above: Performed By: #### L IPID, T7, TSH, CMP #### [facility] [address] [address] [address] Chuck Leach MUCOUS NONE SEEN Normal NONE SEEN [facility] Comment on above: Performed By: #### L IPID, T7, TSH, CMP #### [facility] [address] [address] [address] Chuck Leach Nitrite Ql (U) Negative Normal NEGATIVE [facility] Comment on above: Performed By: #### L IPID, T7, TSH, CMP #### [facility] [address] [place] [address] Dr. Chuck Leach pH (U) 5.0 [pH] Normal 5-9 [facility] Comment on above: Performed By: #### L IPID, T7, TSH, CMP #### [facility] [address] [place] [address] Dr. Chuck Leach RBC 10-20 Abnormal 0-2 [facility] Comment on above: Performed By: #### L IPID, T7, TSH, CMP #### [facility] [address] [place] [address] Dr. Chuck Leach SPEC GRAVITY >=1.030 Abnormal 1.005-<=1.025 [facility] Comment on above: Performed By: #### L IPID, T7, TSH, CMP #### [facility] [address] [address] [address] Chuck Leach UA PROTEIN 30 mg/dl Abnormal NEGATIVE/ TRACE [facility] Comment on above: Performed By: #### L IPID, T7, TSH, CMP #### [facility] [address] [address] [address] Chuck Leach Urobilinogen Qn (U) 0.2 {Ava'U}/dL Normal 0.2 - 1. 0 [facility] Comment on above: Performed By: #### L IPID, T7, TSH, CMP #### [facility] [address] [place], [place] [address] Dr. Chuck Leach WBC 20-50 Abnormal NONE SEEN [facility] Comment on above: Performed By: #### L IPID, T7, TSH, CMP #### [facility] [address] [place], [place] [address] Dr. Chuck Leach Vital Signs Date Time Vital Sign Value Performing Clinician Facility 09-07-2023 09:21-0500 Blood Pressure Location Cadence Lue [facility] 09-07-2023 09:21-0500 Diastolic blood pressure 73 mm[Hg] Cadence Lue [facility] 09-07-2023 09:21-0500 Heart rate 80 /min Cadence Lue [facility] 09-07-2023 09:21-0500 Respiratory rate 16 /min Cadence Lue [facility] 09-07-2023 09:21-0500 Systolic blood pressure 133 mm[Hg] Cadence Lue [facility] 09-01-2022 12:00-0500 Blood Pressure Location Cadence Lue [facility] 09-01-2022 12:00-0500 Diastolic blood pressure 70 mm[Hg] Cadence Lue [facility] 09-01-2022 12:00-0500 Heart rate 66 /min Cadence Lue [facility] 09-01-2022 12:00-0500 Respiratory rate 16 /min Cadence Lue [facility] 09-01-2022 12:00-0500 Systolic blood pressure 112 mm[Hg] Cadence Lue [facility] 07-14-2022 08:29-0400 Blood Pressure Location Cadence Lue [facility] 07-14-2022 08:29-0400 Diastolic blood pressure 82 mm[Hg] Cadence Lue [facility] 07-14-2022 08:29-0400 Heart rate 74 /min Cadence Lue [facility] 07-14-2022 08:29-0400 Systolic blood pressure 140 mm[Hg] Cadence Lue [facility] 05-26-2022 09:43-0400 Blood Pressure Location Cadence Lue [facility] 05-26-2022 09:43-0400 Diastolic blood pressure 82 mm[Hg] Cadence Lue [facility] 05-26-2022 09:43-0400 Heart rate 73 /min Cadence Lue [facility] 05-26-2022 09:43-0400 Respiratory rate 16 /min Cadence Lue [facility] 05-26-2022 09:43-0400 Systolic blood pressure 151 mm[Hg] Cadence Lue [facility] 05-04-2022 15:35-0400 Blood Pressure Location Cadence Lue [facility] 05-04-2022 15:35-0400 Body temperature 97.88 [degF] Cadence Lue [facility] 05-04-2022 15:35-0400 BP/Pulse Patient Position Cadence Lue [facility] 05-04-2022 15:35-0400 Diastolic blood pressure 72 mm[Hg] Cadence Lue [facility] 05-04-2022 15:35-0400 Heart rate 72 /min Cadence Lue [facility] 05-04-2022 15:35-0400 Mean blood pressure 91 mm[Hg] Cadence Lue [facility] 05-04-2022 15:35-0400 Respiratory rate 18 /min Cadence Lue [facility] 05-04-2022 15:35-0400 SaO2% (BldA) [Mass fraction] 96 % Cadence Lue [facility] 05-04-2022 15:35-0400 Systolic blood pressure 128 mm[Hg] Cadence Lue [facility] 05-04-2022 14:39-0400 Blood Pressure Location Cadence Lue [facility] 05-04-2022 14:39-0400 Body temperature 97.34 [degF] Cadence Lue [facility] 05-04-2022 14:39-0400 BP/Pulse Patient Position Cadence Lue [facility] 05-04-2022 14:39-0400 Diastolic blood pressure 79 mm[Hg] Cadence Lue [facility] 05-04-2022 14:39-0400 Heart rate 69 /min Cadence Lue [facility] 05-04-2022 14:39-0400 Mean blood pressure 102 mm[Hg] Cadence Lue [facility] 05-04-2022 14:39-0400 Respiratory rate 18 /min Cadence Lue [facility] 05-04-2022 14:39-0400 SaO2% (BldA) [Mass fraction] 96 % Cadence Lue [facility] 05-04-2022 14:39-0400 Systolic blood pressure 148 mm[Hg] Cadence Lue [facility] 05-04-2022 14:30-0400 Body temperature 97.16 [degF] Cadence Lue [facility] 05-04-2022 14:30-0400 Diastolic blood pressure 80 mm[Hg] Cadence Lue [facility] 05-04-2022 14:30-0400 Heart rate 74 /min Cadence Lue [facility] 05-04-2022 14:30-0400 Respiratory rate 23 /min Cadence Lue [facility] 05-04-2022 14:30-0400 SaO2% (BldA) [Mass fraction] 96 % Cadence Lue [facility] 05-04-2022 14:30-0400 Systolic blood pressure 132 mm[Hg] Cadence Lue [facility] 05-04-2022 14:15-0400 Body temperature 97.16 [degF] Cadence Lue [facility] 05-04-2022 14:15-0400 Respiratory rate 13 /min Cadence Lue [facility] 05-04-2022 14:10-0400 Respiratory rate 16 /min Cadence Lue [facility] 05-04-2022 14:03-0400 Body temperature 96.44 [degF] Cadence Lue [facility] 05-04-2022 13:55-0400 Respiratory rate 14 /min Cadence Lue [facility] 05-04-2022 08:34-0400 Blood Pressure Location Cadence Lue [facility] 05-04-2022 08:34-0400 Body temperature 97.88 [degF] Cadence Lue [facility] 05-04-2022 08:34-0400 BP/Pulse Patient Position Cadence Lue [facility] 05-04-2022 08:34-0400 Mean blood pressure 104 mm[Hg] Cadence Lue [facility] 04-21-2022 10:56-0400 Blood Pressure Location Cadence Lue [facility] 04-21-2022 10:56-0400 Diastolic blood pressure 89 mm[Hg] Cadence Lue [facility] 04-21-2022 10:56-0400 Heart rate 81 /min Cadence Lue [facility] 04-21-2022 10:56-0400 Respiratory rate 16 /min Cadence Raziadriss [facility] 04-21-2022 10:56-0400 Systolic blood pressure 156 mm[Hg] Cadence Raziadriss [facility] Encounters Encounter Date Encounter Type Care Provider Facility Start: 09-12-2024 ambulatory Cadence Green Facility:[facility] Start: 09-07-2023 End: 09-08-2023 ambulatory Cadence Green Facility:[facility] Start: 09-07-2023 End: 09-07-2023 Patient encounter procedure Cadence Green [facility] Start: 03-02-2023 End: 03-03-2023 ambulatory Cadence Randlee Facility:[facility] Start: 02-18-2023 End: 02-19-[address] FRANCISCO GALAN . Facility: Start: 09-01-2022 End: 09-01-2022 Patient encounter procedure Cadence Randlee [facility] Start: 08-19-2022 End: 08-20-[address] VANESSA ASHTON Facility:[facility] Start: 07-28-2022 Encounter for preprocedural laboratory examination CADENCE GREEN . [facility] Start: 07-28-2022 End: 07-28-2022 ambulatory CADENCE GREEN . Facility: Start: 07-24-2022 End: 07-25-2022 ambulatory CADENCE GREEN . Facility:[facility] Start: 07-24-2022 End: 07-25-2022 Encounter for preprocedural laboratory examination CADENCE Tyler LUE . Facility:[facility] Start: 07-16-2022 End: 07-17-2022 ambulatory MIKE MAYA Facility:[facility] Start: 07-14-2022 End: 07-14-2022 Lab Drop off Cadence Tyler. Raziae [facility] Start: 07-14-2022 End: 07-14-2022 Patient encounter procedure Cadence Lay Lue [facility] Start: 07-08-2022 End: 07-09-[address] VANESSA ASHTON Facility:[facility] Start: 06-09-2022 End: 06-09-[address] VANESSA ASHTON Facility:[facility] Start: 06-05-2022 End: 06-06-[address] FRANCISCO GALAN . Facility:[facility] Start: 06-03-2022 Encounter for other preprocedural examination CADENCE M LUE . [facility] Start: 05-31-2022 End: 06-01-2022 ambulatory CADENCE M LUE . Facility:[facility] Start: 05-31-2022 End: 06-01-2022 Encounter for other preprocedural examination CADENCE M LUE . Facility:[facility] Start: 05-26-2022 End: 05-26-2022 Patient encounter procedure Cadence Tyler. Lue [facility] Start: 05-24-2022 End: 05-25-[address] VANESSA ASHTON Facility:[facility] Start: 05-06-2022 End: 05-06-2022 ambulatory CADENCE M LUE . Facility:[facility] Start: 05-04-2022 End: 05-04-2022 Admission to same day surgery center Cadence Tyler. Lue [facility] Start: 04-21-2022 End: 04-22-[address] FRANCISCO GALAN . Facility:[facility] Start: 04-21-2022 End: 04-21-2022 Patient encounter procedure Cadence Green [facility] Start: 04-09-2022 End: 04-11-2022 Evaluation and management of inpatient CADENCE GREEN . Facility:[facility] Procedures Date Procedure Procedure Detail Performing Clinician Start: 07-28-2022 Ureteroscopy with biopsy Cadence Green Start: 05-04-2022 Extracorporeal shock wave lithotripsy of ureter Cadence Green Start: 05-04-2022 Placement of stent Amna Green Comment on above: URETERAL STENT EXCHA NGE URETERAL STENT EXCHA NGE Start: 04-09-2022 Insertion of Other D evice into Genitourinary Tract, Via Natural or Artificial Opening Endoscopic DR ELLIE MONTILLA Start: 04-09-2022 Cystoscopy Cadence Green Decompression of med joao nerve Cadence Green Tonsillectomy Cadence Green Immunizations Immunization Date Immunization Notes Care Provider Maricarmen [facility] 08-02-2022 influenza virus vacc ine, unspecified formulation Cadence Ludriss [facility] 09-16-2021 SARS-CoV-2 (COVID-19 ) mRNA-1273 vaccine Cadence Lue [facility] Comment on above: Result Comment: 2021: [id number] 07-08-2021 influenza virus vacc ine, unspecified formulation Cadence Lue [facility] 02-04-2021 SARS-CoV-2 (COVID-19 ) mRNA-1273 vaccine Cadence Lue [facility] Comment on above: Result Comment: 2021: [id number] 01-07-2021 SARS-CoV-2 (COVID-19 ) mRNA-1273 vaccine Cadence Green [facility] Comment on above: Result Comment: 2021: [id number] 09-01-2020 influenza virus vacc ine, unspecified formulation Cadence Green [facility] 08-27-2020 influenza, unspecifi ed formulation Cadence Green [facility] 08-10-2018 pneumococcal polysaccharide vaccine, 23 valent Cadence Green [facility] Payers Date Payer Category Payer Medicare [id number] 1960 Unknown [id number] 1950 Unknown [id number] 2.16.84 [id number] 1950 Unknown [id number] 2.16.84 [id number] 1949 Unknown [id number] 2.16.84 0.1.726818.3.579.2.59 1949 Unknown [id number] 2.16.84 0.1.322844.3.579.2.593 1949 Unknown [id number] 2.16.84 0.1.719204.3.579.2.59 1949 Unknown [id number] 2.16.84 0.1.162431.3.579.2.593 1949 Unknown [id number] 2.16.84 0.1.945485.3.579.2.59 1949 Unknown [id number] 2.16.84 0.1.907314.3.579.2.593 1949 Unknown [id number] 2.16.84 0.1.205642.3.579.2.593 1949 Unknown [id number] 2.16.84 0.1.763479.3.579.2.593 1949 Unknown [id number] 2.16.84 0.1.661170.3.579.2.593 1949 Unknown [id number] 2.16.84 0.1.587799.3.579.2.593 1949 Unknown [id number] 2.16.84 0.1.206603.3.579.2.593 1949 Unknown [id number] 2.16.84 0.1.454021.3.579.2.593 1949 Unknown [id number] 2.16.8 40.1.529679.3.579.2.727 1949 Unknown [id number] 2.16.8 40.1.985730.3.579.2.727 1949 Unknown [id number] 2.16.8 40.1.535009.3.579.2.727 Social History Date Type Detail Facility Tobacco smoking status No Smokin g Status Entered [facility] Sex Assigned At Female [facility] Tobacco smoking status No Smokin g Status Entered [facility] Start: 09-01-2022 End: 09-07-2023 Tobacco smoking status Never smoked tobacco (finding) [facility] Tobacco smoking status Never [facility] Medical Equipment Procedure Code Equipment Code Equipment Origin al Text Equipment Identifier Dates CYSTOSCOPY RETROGRADE STENT INSERTION Cadence Green MD 05/04/22 Unknown Ureter R FDA Start: 05-04-2022 CYSTOSCOPY RETROGRADE STENT INSERTION Cadence Green MD 05/04/22 Unknown Ureter R FDA Start: 05-04-2022 CYSTOSCOPY RETROGRADE STENT INSERTION Cadence Green MD 05/04/22 Unknown Ureter R FDA Start: 05-04-2022 CYSTOSCOPY RETROGRADE STENT INSERTION Cadence Green MD 05/04/22 Unknown Ureter R FDA Start: 05-04-2022 CYSTOSCOPY RETROGRADE STENT INSERTION Cadence Green MD 05/04/22 Unknown Ureter R FDA Start: 05-04-2022 CYSTOSCOPY RETROGRADE STENT INSERTION Cadence Green MD 05/04/22 Unknown Ureter R FDA Start: 05-04-2022 Functional Status Date Assessment Result Facility 09-07-2023 Functional Status N/A [facility] 09-01-2022 Functional Status N/A [facility] 07-14-2022 Functional Status N/A [facility] 05-26-2022 N/A [facility] 04-30-2022 Functional Status No [facility] 04-21-2022 Functional Status N/A [facility] Clinical Notes 04-21-2022 to 09-07-2023 Note Date & Type Note Facility 09-07-2023 Hospital Discharg e instructions Patient Education 09/07/2023 10:15:45 Dietary Guidelines to Help Prevent Kidney Stones Dietary Guidelines to Help Prevent Kidney Stones Kidney stones are deposits of minerals and salts that form inside your kidneys. Your risk of developing kidney stones may be greater depending on your diet, your lifestyle, the medicines you take, and whether you have certain medical conditions. Most people can lower their risks of developing kidney stones by following these dietary guidelines. Your dietitian may give you more specific instructions depending on your overall health and the type of kidney stones you tend to develop. What are tips for following this plan? Reading food labels Choose foods with no salt added or low-salt labels. Limit your salt (sodium) intake to less than 1,500 mg a day. Choose foods with calcium for each meal and snack. Try to eat about 300 mg of calcium at each meal. Foods that contain 200 500 mg of calcium a serving include: ?8 oz (237 mL) of milk, oyggalu-ejmjhujvoprw-xlfjt milk, and calcium-fortifiedfruit juice. Calcium-fortified means that calcium has been added to these drinks. ?8 oz (237 mL) of kefir, yogurt, and soy yogurt. ?4 oz (114 g) of tofu. ?1 oz (28 g) of cheese. ?1 cup (150 g) of dried figs. ?1 cup (91 g) of cooked broccoli. ?One 3 oz (85 g) can of sardines or mackerel. Most people need 1,000 1,500 mg of calcium a day. Talk to your dietitian about how much calcium is recommended for you. Shopping Buy plenty of fresh fruits and vegetables. Most people do not need to avoid fruits and vegetables, even if these foods contain nutrients that may contribute to kidney stones. When shopping for convenience foods, choose: ?Whole pieces of fruit. ?Pre-made salads with dressing on the side. ?Low-fat fruit and yogurt smoothies. Avoid buying frozen meals or prepared deli foods. These can be high in sodium. Look for foods with live cultures, such as yogurt and kefir. Choose high-fiber grains, such as whole-wheat breads, oat bran, and wheat cereals. Cooking Do not add salt to food when cooking. Place a salt shaker on the table and allow each person to add their own salt to taste. Use vegetable protein, such as beans, textured vegetable protein (TVP), or tofu, instead of meat in pasta, casseroles, and soups. Meal planning Eat less salt, if told by your dietitian. To do this: ?Avoid eating processed or pre-made food. ?Avoid eating fast food. Eat less animal protein, including cheese, meat, poultry, or fish, if told by your dietitian. To do this: ?Limit the number of times you have meat, poultry, fish, or cheese each week. Eat a diet free of meat at least 2 days a week. ?Eat only one serving each day of meat, poultry, fish, or seafood. ?When you prepare animal proteins, cut pieces into small portion sizes. For most meat and fish, one serving is about the size of the palm of your hand. Eat at least five servings of fresh fruits and vegetables each day. To do this: ?Keep fruits and vegetables on hand for snacks. ?Eat one piece of fruit or a handful of berries with breakfast. ?Have a salad and fruit at lunch. ?Have two kinds of vegetables at dinner. You may be told to limit foods that are high in a substance called oxalate. These include: ?Spinach (cooked), rhubarb, beets, sweet potatoes, and Grenadian chard. ?Peanuts. ?Potato chips, italian fries, and baked potatoes with skin on. ?Nuts and nut products. ?Chocolate. If you regularly take a diuretic medicine, make sure to eat at least 1 or 2 servings of fruits or vegetables that are high in potassium each day. These include: ?Avocado. ?Banana. ?[place], prune, carrot, or tomato juice. ?Baked potato. ?Cabbage. ?Beans and split peas. Lifestyle Drink enough fluid to keep your urine pale yellow. This is the most important thing you can do. Spread your fluid intake throughout the day. If you drink alcohol: ?Limit how much you have to: ?0 1 drink a day for women who are not . ?0 2 drinks a day for men. ?Know how much alcohol is in your drink. In the [place] one drink equals one 12 oz bottle of beer (355 mL), one 5 oz glass of wine (148 mL), or one 1 oz glass of hard liquor (44 mL). Lose weight if told by your health care provider. Work with your dietitian to find an eating plan and weight loss strategies that work best for you. General information Talk to your health care provider and dietitian about taking daily supplements. Depending on your health and the cause of your kidney stones, you may be told: ?Do not take high-dose supplements of vitamin C (1,000 mg a day or more). ?To take a calcium supplement. ?To take a daily probiotic supplement. ?To take other supplements such as magnesium, fish oil, or vitamin B6. Take qvnj-xzi-wumceoy and prescription medicines only as told by your health care provider. These include supplements. What foods should I limit? Limit your intake of the following foods, or eat them as told by your dietitian. Vegetables Spinach. Rhubarb. Beets. Canned vegetables. Pickles. Olives. Baked potatoes with skin. Grains Wheat bran. Baked goods. Salted crackers. Cereals high in sugar. Meats and other proteins Nuts. Nut butters. Large portions of meat, poultry, or fish. Salted, precooked, or cured meats, such as sausages, meat loaves, and hot dogs. Dairy Cheeses. Beverages Regular soft drinks. Regular vegetable juice. Seasonings and condiments Seasoning blends with salt. Salad dressings. Soy sauce. Ketchup. Barbecue sauce. Other foods Canned soups. Canned pasta sauce. Casseroles. Pizza. Lasagna. Frozen meals. Potato chips. [place] Rican fries. The items listed above may not be a complete list of foods and beverages you should limit. Contact a dietitian for more information. What foods should I avoid? Talk to your dietitian about specific foods you should avoid based on the type of kidney stones you have and your overall health. Fruits Grapefruit. The item listed above may not be a complete list of foods and beverages you should avoid. Contact a dietitian for more information. Summary Kidney stones are deposits of minerals and salts that form inside your kidneys. You can lower your risk of kidney stones by making changes to your diet. The most important thing you can do is drink enough fluid. Drink enough fluid to keep your urine pale yellow. Talk to your dietitian about how much calcium you should have each day, and eat less salt and animal protein as told by your dietitian. This information is not intended to replace advice given to you by your health care provider. Make sure you discuss any questions you have with your health care provider. Document Revised: 01/06/2023 Document Reviewed: 01/06/2023 [employer] Patient Education 2022 [employer]. Follow Up Care 03/02/2023 12:26:09 With:Peter VILLA, OSCAR Rivas, URO Address: When:Within 1 Year(s) [facility] [place] 09-01-2022 Hospital Discharg e instructions Patient Education 09/01/2022 12:42:42 Dietary Guidelines to Help Prevent Kidney Stones Dietary Guidelines to Help Prevent Kidney Stones Kidney stones are deposits of minerals and salts that form inside your kidneys. Your risk of developing kidney stones may be greater depending on your diet, your lifestyle, the medicines you take, and whether you have certain medical conditions. Most people can reduce their chances of developing kidney stones by following the instructions below. Depending on your overall health and the type of kidney stones you tend to develop, your dietitian may give you more specific instructions. What are tips for following this plan? Reading food labels Choose foods with no salt added or low-salt labels. Limit your sodium intake to less than 1500 mg per day. Choose foods with calcium for each meal and snack. Try to eat about 300 mg of calcium at each meal. Foods that contain 200 500 mg of calcium per serving include: ?8 oz (237 ml) of milk, fortified nondairy milk, and fortified fruit juice. ?8 oz (237 ml) of kefir, yogurt, and soy yogurt. ?4 oz (118 ml) of tofu. ?1 oz of cheese. ?1 cup (300 g) of dried figs. ?1 cup (91 g) of cooked broccoli. ?1 3 oz can of sardines or mackerel. Most people need 1000 to 1500 mg of calcium each day. Talk to your dietitian about how much calcium is recommended for you. Shopping Buy plenty of fresh fruits and vegetables. Most people do not need to avoid fruits and vegetables, even if they contain nutrients that may contribute to kidney stones. When shopping for convenience foods, choose: ?Whole pieces of fruit. ?Premade salads with dressing on the side. ?Low-fat fruit and yogurt smoothies. Avoid buying frozen meals or prepared deli foods. Look for foods with live cultures, such as yogurt and kefir. Cooking Do not add salt to food when cooking. Place a salt shaker on the table and allow each person to add his or her own salt to taste. Use vegetable protein, such as beans, textured vegetable protein (TVP), or tofu instead of meat in pasta, casseroles, and soups. Meal planning Eat less salt, if told by your dietitian. To do this: ?Avoid eating processed or premade food. ?Avoid eating fast food. Eat less animal protein, including cheese, meat, poultry, or fish, if told by your dietitian. To do this: ?Limit the number of times you have meat, poultry, fish, or cheese each week. Eat a diet free of meat at least 2 days a week. ?Eat only one serving each day of meat, poultry, fish, or seafood. ?When you prepare animal protein, cut pieces into small portion sizes. For most meat and fish, one serving is about the size of one deck of cards. Eat at least 5 servings of fresh fruits and vegetables each day. To do this: ?Keep fruits and vegetables on hand for snacks. ?Eat 1 piece of fruit or a handful of berries with breakfast. ?Have a salad and fruit at lunch. ?Have two kinds of vegetables at dinner. Limit foods that are high in a substance called oxalate. These include: ?Spinach. ?Rhubarb. ?Beets. ?Potato chips and italian fries. ?Nuts. If you regularly take a diuretic medicine, make sure to eat at least 1 2 fruits or vegetables high in potassium each day. These include: ?Avocado. ?Banana. ?[place], prune, carrot, or tomato juice. ?Baked potato. ?Cabbage. ?Beans and split peas. General instructions Drink enough fluid to keep your urine clear or pale yellow. This is the most important thing you can do. Talk to your health care provider and dietitian about taking daily supplements. Depending on your health and the cause of your kidney stones, you may be advised: ?Not to take supplements with vitamin C. ?To take a calcium supplement. ?To take a daily probiotic supplement. ?To take other supplements such as magnesium, fish oil, or vitamin B6. Take all medicines and supplements as told by your health care provider. Limit alcohol intake to no more than 1 drink a day for non women and 2 drinks a day for men. One drink equals 12 oz of beer, 5 oz of wine, or 1 oz of hard liquor. Lose weight if told by your health care provider. Work with your dietitian to find strategies and an eating plan that works best for you. What foods are not recommended? Limit your intake of the following foods, or as told by your dietitian. Talk to your dietitian about specific foods you should avoid based on the type of kidney stones and your overall health. Grains Breads. Bagels. Rolls. Baked goods. Salted crackers. Cereal. Pasta. Vegetables Spinach. Rhubarb. Beets. Canned vegetables. Pickles. Olives. Meats and other protein foods Nuts. Nut butters. Large portions of meat, poultry, or fish. Salted or cured meats. Deli meats. Hot dogs. Sausages. Dairy Cheese. Beverages Regular soft drinks. Regular vegetable juice. Seasonings and other foods Seasoning blends with salt. Salad dressings. Canned soups. Soy sauce. Ketchup. Barbecue sauce. Canned pasta sauce. Casseroles. Pizza. Lasagna. Frozen meals. Potato chips. [place] fries. Summary You can reduce your risk of kidney stones by making changes to your diet. The most important thing you can do is drink enough fluid. You should drink enough fluid to keep your urine clear or pale yellow. Ask your health care provider or dietitian how much protein from animal sources you should eat each day, and also how much salt and calcium you should have each day. This information is not intended to replace advice given to you by your health care provider. Make sure you discuss any questions you have with your health care provider. Document Released: 01/21/2012 Document Revised: 01/16/2020 Document Reviewed: 09/06/2017 [employer] Patient Education 2020 [employer]. 09/01/2022 12:32:57 Dietary Guidelines to Help Prevent Kidney Stones Dietary Guidelines to Help Prevent Kidney Stones Kidney stones are deposits of minerals and salts that form inside your kidneys. Your risk of developing kidney stones may be greater depending on your diet, your lifestyle, the medicines you take, and whether you have certain medical conditions. Most people can reduce their chances of developing kidney stones by following the instructions below. Depending on your overall health and the type of kidney stones you tend to develop, your dietitian may give you more specific instructions. What are tips for following this plan? Reading food labels Choose foods with no salt added or low-salt labels. Limit your sodium intake to less than 1500 mg per day. Choose foods with calcium for each meal and snack. Try to eat about 300 mg of calcium at each meal. Foods that contain 200 500 mg of calcium per serving include: ?8 oz (237 ml) of milk, fortified nondairy milk, and fortified fruit juice. ?8 oz (237 ml) of kefir, yogurt, and soy yogurt. ?4 oz (118 ml) of tofu. ?1 oz of cheese. ?1 cup (300 g) of dried figs. ?1 cup (91 g) of cooked broccoli. ?1 3 oz can of sardines or mackerel. Most people need 1000 to 1500 mg of calcium each day. Talk to your dietitian about how much calcium is recommended for you. Shopping Buy plenty of fresh fruits and vegetables. Most people do not need to avoid fruits and vegetables, even if they contain nutrients that may contribute to kidney stones. When shopping for convenience foods, choose: ?Whole pieces of fruit. ?Premade salads with dressing on the side. ?Low-fat fruit and yogurt smoothies. Avoid buying frozen meals or prepared deli foods. Look for foods with live cultures, such as yogurt and kefir. Cooking Do not add salt to food when cooking. Place a salt shaker on the table and allow each person to add his or her own salt to taste. Use vegetable protein, such as beans, textured vegetable protein (TVP), or tofu instead of meat in pasta, casseroles, and soups. Meal planning Eat less salt, if told by your dietitian. To do this: ?Avoid eating processed or premade food. ?Avoid eating fast food. Eat less animal protein, including cheese, meat, poultry, or fish, if told by your dietitian. To do this: ?Limit the number of times you have meat, poultry, fish, or cheese each week. Eat a diet free of meat at least 2 days a week. ?Eat only one serving each day of meat, poultry, fish, or seafood. ?When you prepare animal protein, cut pieces into small portion sizes. For most meat and fish, one serving is about the size of one deck of cards. Eat at least 5 servings of fresh fruits and vegetables each day. To do this: ?Keep fruits and vegetables on hand for snacks. ?Eat 1 piece of fruit or a handful of berries with breakfast. ?Have a salad and fruit at lunch. ?Have two kinds of vegetables at dinner. Limit foods that are high in a substance called oxalate. These include: ?Spinach. ?Rhubarb. ?Beets. ?Potato chips and italian fries. ?Nuts. If you regularly take a diuretic medicine, make sure to eat at least 1 2 fruits or vegetables high in potassium each day. These include: ?Avocado. ?Banana. ?[place], prune, carrot, or tomato juice. ?Baked potato. ?Cabbage. ?Beans and split peas. General instructions Drink enough fluid to keep your urine clear or pale yellow. This is the most important thing you can do. Talk to your health care provider and dietitian about taking daily supplements. Depending on your health and the cause of your kidney stones, you may be advised: ?Not to take supplements with vitamin C. ?To take a calcium supplement. ?To take a daily probiotic supplement. ?To take other supplements such as magnesium, fish oil, or vitamin B6. Take all medicines and supplements as told by your health care provider. Limit alcohol intake to no more than 1 drink a day for non women and 2 drinks a day for men. One drink equals 12 oz of beer, 5 oz of wine, or 1 oz of hard liquor. Lose weight if told by your health care provider. Work with your dietitian to find strategies and an eating plan that works best for you. What foods are not recommended? Limit your intake of the following foods, or as told by your dietitian. Talk to your dietitian about specific foods you should avoid based on the type of kidney stones and your overall health. Grains Breads. Bagels. Rolls. Baked goods. Salted crackers. Cereal. Pasta. Vegetables Spinach. Rhubarb. Beets. Canned vegetables. Pickles. Olives. Meats and other protein foods Nuts. Nut butters. Large portions of meat, poultry, or fish. Salted or cured meats. Deli meats. Hot dogs. Sausages. Dairy Cheese. Beverages Regular soft drinks. Regular vegetable juice. Seasonings and other foods Seasoning blends with salt. Salad dressings. Canned soups. Soy sauce. Ketchup. Barbecue sauce. Canned pasta sauce. Casseroles. Pizza. Lasagna. Frozen meals. Potato chips. [place] fries. Summary You can reduce your risk of kidney stones by making changes to your diet. The most important thing you can do is drink enough fluid. You should drink enough fluid to keep your urine clear or pale yellow. Ask your health care provider or dietitian how much protein from animal sources you should eat each day, and also how much salt and calcium you should have each day. This information is not intended to replace advice given to you by your health care provider. Make sure you discuss any questions you have with your health care provider. Document Released: 01/21/2012 Document Revised: 01/16/2020 Document Reviewed: 09/06/2017 [employer] Patient Education 2020 [employer]. Follow Up Care 07/30/2022 15:20:26 With:Peter VILLA, OSCAR Rivas, URO Address: When:6 months Comments:KUB & renal us [facility] [place] 07-14-2022 Evaluation + Plan note Diagnostic Tests PendingUrine Culture 07/14/22 [facility] 07-14-2022 Hospital Discharg e instructions Patient Education 07/14/2022 09:06:23 Hematuria, Adult Hematuria, Adult Hematuria is blood in the urine. Blood may be visible in the urine, or it may be identified with a test. This condition can be caused by infections of the bladder, urethra, kidney, or prostate. Other possible causes include: Kidney stones. Cancer of the urinary tract. Too much calcium in the urine. Conditions that are passed from parent to child (inherited conditions). Exercise that requires a lot of energy. Infections can usually be treated with medicine, and a kidney stone usually will pass through your urine. If neither of these is the cause of your hematuria, more tests may be needed to identify the cause of your symptoms. It is very important to tell your health care provider about any blood in your urine, even if it is painless or the blood stops without treatment. Blood in the urine, when it happens and then stops and then happens again, can be a symptom of a very serious condition, including cancer. There is no pain in the initial stages of many urinary cancers. Follow these instructions at home: Medicines Take xdmi-njk-[id number] and prescription medicines only as told by your health care provider. If you were prescribed an antibiotic medicine, take it as told by your health care provider. Do not stop taking the antibiotic even if you start to feel better. Eating and drinking Drink enough fluid to keep your urine clear or pale yellow. It is recommended that you drink 3 4 quarts (2.8 3.8 L) a day. If you have been diagnosed with an infection, it is recommended that you drink cranberry juice in addition to large amounts of water. Avoid caffeine, tea, and carbonated beverages. These tend to irritate the bladder. Avoid alcohol because it may irritate the prostate (men). General instructions If you have been diagnosed with a kidney stone, follow your health care provider's instructions about straining your urine to catch the stone. Empty your bladder often. Avoid holding urine for long periods of time. If you are female: ?After a bowel movement, wipe from front to back and use each piece of toilet paper only once. ?Empty your bladder before and after sex. Pay attention to any changes in your symptoms. Tell your health care provider about any changes or any new symptoms. It is your responsibility to get your test results. Ask your health care provider, or the department performing the test, when your results will be ready. Keep all follow-up visits as told by your health care provider. This is important. Contact a health care provider if: You develop back pain. You have a fever. You have nausea or vomiting. Your symptoms do not improve after 3 days. Your symptoms get worse. Get help right away if: You develop severe vomiting and are unable take medicine without vomiting. You develop severe pain in your back or abdomen even though you are taking medicine. You pass a large amount of blood in your urine. You pass blood clots in your urine. You feel very weak or like you might faint. You faint. Summary Hematuria is blood in the urine. It has many possible causes. It is very important that you tell your health care provider about any blood in your urine, even if it is painless or the blood stops without treatment. Take [id number] and prescription medicines only as told by your health care provider. Drink enough fluid to keep your urine clear or pale yellow. This information is not intended to replace advice given to you by your health care provider. Make sure you discuss any questions you have with your health care provider. Document Released: 09/26/2006 Document Revised: 02/20/2020 Document Reviewed: 10/29/2017 [employer]flux Patient Education 2019 [employer]. 07/14/2022 09:06:21 Kidney Stones, Hytx-lc-Maes Kidney Stones Kidney stones are rock-like masses that form inside of the kidneys. Kidneys are organs that make pee (urine). A kidney stone may move into other parts of the urinary tract, including: The tubes that connect the kidneys to the bladder (ureters). The bladder. The tube that carries urine out of the body (urethra). Kidney stones can cause very bad pain and can block the flow of pee. The stone usually leaves your body (passes) through your pee. You may need to have a doctor take out the stone. What are the causes? Kidney stones may be caused by: A condition in which certain glands make too much parathyroid hormone (primary hyperparathyroidism). A buildup of a type of crystals in the bladder made of a chemical called uric acid. The body makes uric acid when you eat certain foods. Narrowing (stricture) of one or both of the ureters. A kidney blockage that you were born with. Past surgery on the kidney or the ureters, such as gastric bypass surgery. What increases the risk? You are more likely to develop this condition if: You have had a kidney stone in the past. You have a family history of kidney stones. You do not drink enough water. You eat a diet that is high in protein, salt (sodium), or sugar. You are overweight or very overweight (obese). What are the signs or symptoms? Symptoms of a kidney stone may include: Pain in the side of the belly, right below the ribs (flank pain). Pain usually spreads (radiates) to the groin. Needing to pee often or right away (urgently). Pain when going pee (urinating). Blood in your pee (hematuria). Feeling like you may vomit (nauseous). Vomiting. Fever and chills. How is this treated? Treatment depends on the size, location, and makeup of the kidney stones. The stones will often pass out of the body through peeing. You may need to: Drink more fluid to help pass the stone. In some cases, you may be given fluids through an IV tube put into one of your veins at the hospital. Take medicine for pain. Make changes in your diet to help keep kidney stones from coming back. Sometimes, medical procedures are needed to remove a kidney stone. This may involve: A procedure to break up kidney stones using a beam of light (laser) or shock waves. Surgery to remove the kidney stones. Follow these instructions at home: Medicines Take cnjg-rre-sakghhd and prescription medicines only as told by your doctor. Ask your doctor if the medicine prescribed to you requires you to avoid driving or using heavy machinery. Eating and drinking Drink enough fluid to keep your pee pale yellow. You may be told to drink at least 8 10 glasses of water each day. This will help you pass the stone. If told by your doctor, change your diet. This may include: ?Limiting how much salt you eat. ?Eating more fruits and vegetables. ?Limiting how much meat, poultry, fish, and eggs you eat. Follow instructions from your doctor about eating or drinking restrictions. General instructions Collect pee samples as told by your doctor. You may need to collect a pee sample: ?24 hours after a stone comes out. ?8 12 weeks after a stone comes out, and every 6 12 months after that. Strain your pee every time you pee (urinate), for as long as told. Use the strainer that your doctor recommends. Do not throw out the stone. Keep it so that it can be tested by your doctor. Keep all follow-up visits as told by your doctor. This is important. You may need follow-up tests. How is this prevented? To prevent another kidney stone: Drink enough fluid to keep your pee pale yellow. This is the best way to prevent kidney stones. Eat healthy foods. Avoid certain foods as told by your doctor. You may be told to eat less protein. Stay at a healthy weight. Where to find more information National Kidney Foundation (NKF): www.kidney.org [facility] ([facility]): www.urologyhealth.org Contact a doctor if: You have pain that gets worse or does not get better with medicine. Get help right away if: You have a fever or chills. You get very bad pain. You get new pain in your belly (abdomen). You pass out (faint). You cannot pee. Summary Kidney stones are rock-like masses that form inside of the kidneys. Kidney stones can cause very bad pain and can block the flow of pee. The stones will often pass out of the body through peeing. Drink enough fluid to keep your pee pale yellow. This information is not intended to replace advice given to you by your health care provider. Make sure you discuss any questions you have with your health care provider. Document Released: 03/14/2009 Document Revised: 02/12/2020 Document Reviewed: 02/12/2020 [employer] Patient Education 2019 [employer]. Follow Up Care 06/11/2022 11:31:47 With:Peter VILLA, OSCAR Rivas, URO Address: When: Unknown [facility] [place] 05-26-2022 Hospital Discharg e instructions Patient Education 05/26/2022 10:51:22 Dietary Guidelines to Help Prevent Kidney Stones Dietary Guidelines to Help Prevent Kidney Stones Kidney stones are deposits of minerals and salts that form inside your kidneys. Your risk of developing kidney stones may be greater depending on your diet, your lifestyle, the medicines you take, and whether you have certain medical conditions. Most people can reduce their chances of developing kidney stones by following the instructions below. Depending on your overall health and the type of kidney stones you tend to develop, your dietitian may give you more specific instructions. What are tips for following this plan? Reading food labels Choose foods with no salt added or low-salt labels. Limit your sodium intake to less than 1500 mg per day. Choose foods with calcium for each meal and snack. Try to eat about 300 mg of calcium at each meal. Foods that contain 200 500 mg of calcium per serving include: ?8 oz (237 ml) of milk, fortified nondairy milk, and fortified fruit juice. ?8 oz (237 ml) of kefir, yogurt, and soy yogurt. ?4 oz (118 ml) of tofu. ?1 oz of cheese. ?1 cup (300 g) of dried figs. ?1 cup (91 g) of cooked broccoli. ?1 3 oz can of sardines or mackerel. Most people need 1000 to 1500 mg of calcium each day. Talk to your dietitian about how much calcium is recommended for you. Shopping Buy plenty of fresh fruits and vegetables. Most people do not need to avoid fruits and vegetables, even if they contain nutrients that may contribute to kidney stones. When shopping for convenience foods, choose: ?Whole pieces of fruit. ?Premade salads with dressing on the side. ?Low-fat fruit and yogurt smoothies. Avoid buying frozen meals or prepared deli foods. Look for foods with live cultures, such as yogurt and kefir. Cooking Do not add salt to food when cooking. Place a salt shaker on the table and allow each person to add his or her own salt to taste. Use vegetable protein, such as beans, textured vegetable protein (TVP), or tofu instead of meat in pasta, casseroles, and soups. Meal planning Eat less salt, if told by your dietitian. To do this: ?Avoid eating processed or premade food. ?Avoid eating fast food. Eat less animal protein, including cheese, meat, poultry, or fish, if told by your dietitian. To do this: ?Limit the number of times you have meat, poultry, fish, or cheese each week. Eat a diet free of meat at least 2 days a week. ?Eat only one serving each day of meat, poultry, fish, or seafood. ?When you prepare animal protein, cut pieces into small portion sizes. For most meat and fish, one serving is about the size of one deck of cards. Eat at least 5 servings of fresh fruits and vegetables each day. To do this: ?Keep fruits and vegetables on hand for snacks. ?Eat 1 piece of fruit or a handful of berries with breakfast. ?Have a salad and fruit at lunch. ?Have two kinds of vegetables at dinner. Limit foods that are high in a substance called oxalate. These include: ?Spinach. ?Rhubarb. ?Beets. ?Potato chips and italian fries. ?Nuts. If you regularly take a diuretic medicine, make sure to eat at least 1 2 fruits or vegetables high in potassium each day. These include: ?Avocado. ?Banana. ?[place], prune, carrot, or tomato juice. ?Baked potato. ?Cabbage. ?Beans and split peas. General instructions Drink enough fluid to keep your urine clear or pale yellow. This is the most important thing you can do. Talk to your health care provider and dietitian about taking daily supplements. Depending on your health and the cause of your kidney stones, you may be advised: ?Not to take supplements with vitamin C. ?To take a calcium supplement. ?To take a daily probiotic supplement. ?To take other supplements such as magnesium, fish oil, or vitamin B6. Take all medicines and supplements as told by your health care provider. Limit alcohol intake to no more than 1 drink a day for non women and 2 drinks a day for men. One drink equals 12 oz of beer, 5 oz of wine, or 1 oz of hard liquor. Lose weight if told by your health care provider. Work with your dietitian to find strategies and an eating plan that works best for you. What foods are not recommended? Limit your intake of the following foods, or as told by your dietitian. Talk to your dietitian about specific foods you should avoid based on the type of kidney stones and your overall health. Grains Breads. Bagels. Rolls. Baked goods. Salted crackers. Cereal. Pasta. Vegetables Spinach. Rhubarb. Beets. Canned vegetables. Pickles. Olives. Meats and other protein foods Nuts. Nut butters. Large portions of meat, poultry, or fish. Salted or cured meats. Deli meats. Hot dogs. Sausages. Dairy Cheese. Beverages Regular soft drinks. Regular vegetable juice. Seasonings and other foods Seasoning blends with salt. Salad dressings. Canned soups. Soy sauce. Ketchup. Barbecue sauce. Canned pasta sauce. Casseroles. Pizza. Lasagna. Frozen meals. Potato chips. [place] fries. Summary You can reduce your risk of kidney stones by making changes to your diet. The most important thing you can do is drink enough fluid. You should drink enough fluid to keep your urine clear or pale yellow. Ask your health care provider or dietitian how much protein from animal sources you should eat each day, and also how much salt and calcium you should have each day. This information is not intended to replace advice given to you by your health care provider. Make sure you discuss any questions you have with your health care provider. Document Released: 01/21/2012 Document Revised: 01/16/2020 Document Reviewed: 09/06/2017 spotflux Patient Education 2020 [employer]. Follow Up Care 05/05/2022 08:59:28 With:Peter VILLA, OSCAR Rivas, URO Address: When: Unknown [facility] [place] 05-04-2022 Hospital Discharg e instructions Patient Education 05/04/2022 14:23:16 Post Op Patient Instructions - FT (Custom) 05/04/2022 14:17:16 Lithotripsy, Care After Lithotripsy, Care After This sheet gives you information about how to care for yourself after your procedure. Your health care provider may also give you more specific instructions. If you have problems or questions, contact your health care provider. What can I expect after the procedure? After the procedure, it is common to have: Some blood in your urine. This should only last for a few days. Soreness in your back, sides, or upper abdomen for a few days. Blotches or bruises on your back where the pressure wave entered the skin. Pain, discomfort, or nausea when pieces (fragments) of the kidney stone move through the tube that carries urine from the kidney to the bladder (ureter). Stone fragments may pass soon after the procedure, but they may continue to pass for up to 4 8 weeks. ?If you have severe pain or nausea, contact your health care provider. This may be caused by a large stone that was not broken up, and this may mean that you need more treatment. Some pain or discomfort during urination. Some pain or discomfort in the lower abdomen or (in men) at the base of the penis. Follow these instructions at home: Medicines Take rtif-upd-vbnonlu and prescription medicines only as told by your health care provider. If you were prescribed an antibiotic medicine, take it as told by your health care provider. Do not stop taking the antibiotic even if you start to feel better. Do not drive for 24 hours if you were given a medicine to help you relax (sedative). Do not drive or use heavy machinery while taking prescription pain medicine. Eating and drinking Drink enough water and fluids to keep your urine clear or pale yellow. This helps any remaining pieces of the stone to pass. It can also help prevent new stones from forming. Eat plenty of fresh fruits and vegetables. Follow instructions from your health care provider about eating and drinking restrictions. You may be instructed: ?To reduce how much salt (sodium) you eat or drink. Check ingredients and nutrition facts on packaged foods and beverages. ?To reduce how much meat you eat. Eat the recommended amount of calcium for your age and gender. Ask your health care provider how much calcium you should have. General instructions Get plenty of rest. Most people can resume normal activities 1 2 days after the procedure. Ask your health care provider what activities are safe for you. Your health care provider may direct you to lie in a certain position (postural drainage) and tap firmly (percuss) over your kidney area to help stone fragments pass. Follow instructions as told by your health care provider. If directed, strain all urine through the strainer that was provided by your health care provider. ?Keep all fragments for your health care provider to see. Any stones that are found may be sent to a medical lab for examination. The stone may be as small as a grain of salt. Keep all follow-up visits as told by your health care provider. This is important. Contact a health care provider if: You have pain that is severe or does not get better with medicine. You have nausea that is severe or does not go away. You have blood in your urine longer than your health care provider told you to expect. You have more blood in your urine. You have pain during urination that does not go away. You urinate more frequently than usual and this does not go away. You develop a rash or any other possible signs of an allergic reaction. Get help right away if: You have severe pain in your back, sides, or upper abdomen. You have severe pain while urinating. Your urine is very dark red. You have blood in your stool (feces). You cannot pass any urine at all. You feel a strong urge to urinate after emptying your bladder. You have a fever or chills. You develop shortness of breath, difficulty breathing, or chest pain. You have severe nausea that leads to persistent vomiting. You faint. Summary After this procedure, it is common to have some pain, discomfort, or nausea when pieces (fragments) of the kidney stone move through the tube that carries urine from the kidney to the bladder (ureter). If this pain or nausea is severe, however, you should contact your health care provider. Most people can resume normal activities 1 2 days after the procedure. Ask your health care provider what activities are safe for you. Drink enough water and fluids to keep your urine clear or pale yellow. This helps any remaining pieces of the stone to pass, and it can help prevent new stones from forming. If directed, strain your urine and keep all fragments for your health care provider to see. Fragments or stones may be as small as a grain of salt. Get help right away if you have severe pain in your back, sides, or upper abdomen or have severe pain while urinating. This information is not intended to replace advice given to you by your health care provider. Make sure you discuss any questions you have with your health care provider. Document Released: 10/15/2008 Document Revised: 01/07/2020 Document Reviewed: 08/17/2017 spotflux Patient Education 2020 [employer]. Follow Up Care 04/21/2022 14:21:45 With:Cadence Green Address: [facility] [place] [address] [phone] Business (1) When: Unknown Comments:Call for followup appointment in 3-4 weeks with JOSE M [facility] 05-04-2022 Evaluation + Plan note Extrac carley from: Title:Post-anesthesia - General Author:Lazaro Smith DO Date:05/04/22 Plan Transfer/ Discharge: Condition stable. Extracted from: Title:EU- R ESWL, stent exchange Author:Cadence Green MD Date:05/04/22 Impression and Plan Diagnosis Ureteral stone with hydronephrosis ([id number]-PH N13.2, Discharge, Medical). Kidney stone ([id number]-PA N20.0, Discharge, Medical). Diagnosis Ureteral stone with hydronephrosis (CXV01-SG N13.2, Discharge, Medical). Kidney stone ([id number]-[id number] N20.0, Discharge, Medical). Counseled: Patient, Family. Extracted from: Title:Pre-anesthesia - Adult Author:Lazaro Flores Jr., DO Date:05/04/22 Plan [employer] (ASA) physical status classification: Class II. Anesthetic Preoperative Plan Anesthesia: General. . Anesthetic plan, risks, benefits, and alternatives discussed with the patient and/or family. Patient verbalized understanding. Adverse reactions, complications, and alternatives discujssed. Consent signed and on chart.. [facility]07-13-2022 Hospital Discharge instructions Patient Education 04/21/2022 11:44:49 Lithotripsy Lithotripsy Lithotripsy is a treatment that can sometimes help eliminate kidney stones and the pain that they cause. A form of lithotripsy, also known as extracorporeal shock wave lithotripsy, is a nonsurgical procedure that crushes a kidney stone with shock waves. These shock waves pass through your body and focus on the kidney stone. They cause the kidney stone to break up while it is still in the urinary tract. This makes it easier for the smaller pieces of stone to pass in the urine. Tell a health care provider about: Any allergies you have. All medicines you are taking, including vitamins, herbs, eye drops, creams, and zvex-acs-xfsjrbh medicines. Any blood disorders you have. Any surgeries you have had. Any medical conditions you have. Whether you are or may be . Any problems you or family members have had with anesthetic medicines. What are the risks? Generally, this is a safe procedure. However, problems may occur, including: Infection. Bleeding of the kidney. Bruising of the kidney or skin. Scarring of the kidney, which can lead to: ?Increased blood pressure. ?Poor kidney function. ?Return (recurrence) of kidney stones. Damage to other structures or organs, such as the liver, colon, spleen, or pancreas. Blockage (obstruction) of the the tube that carries urine from the kidney to the bladder (ureter). Failure of the kidney stone to break into pieces (fragments). What happens before the procedure? Staying hydrated Follow instructions from your health care provider about hydration, which may include: Up to 2 hours before the procedure you may continue to drink clear liquids, such as water, clear fruit juice, black coffee, and plain tea. Eating and drinking restrictions Follow instructions from your health care provider about eating and drinking, which may include: 8 hours before the procedure stop eating heavy meals or foods such as meat, fried foods, or fatty foods. 6 hours before the procedure stop eating light meals or foods, such as toast or cereal. 6 hours before the procedure stop drinking milk or drinks that contain milk. 2 hours before the procedure stop drinking clear liquids. General instructions Plan to have someone take you home from the hospital or clinic. Ask your health care provider about: ?Changing or stopping your regular medicines. This is especially important if you are taking diabetes medicines or blood thinners. ?Taking medicines such as aspirin and ibuprofen. These medicines and other NSAIDs can thin your blood. Do not take these medicines for 7 days before your procedure if your health care provider instructs you not to. You may have tests, such as: ?Blood tests. ?Urine tests. ?Imaging tests, such as a CT scan. What happens during the procedure? To lower your risk of infection: ?Your health care team will wash or sanitize their hands. ?Your skin will be washed with soap. An IV tube will be inserted into one of your veins. This tube will give you fluids and medicines. You will be given one or more of the following: ?A medicine to help you relax (sedative). ?A medicine to make you fall asleep (general anesthetic). A water-filled cushion may be placed behind your kidney or on your abdomen. In some cases you may be placed in a tub of lukewarm water. Your body will be positioned in a way that makes it easy to target the kidney stone. A flexible tube with holes in it (stent) may be placed in the ureter. This will help keep urine flowing from the kidney if the fragments of the stone have been blocking the ureter. An X-ray or ultrasound exam will be done to locate your stone. Shock waves will be aimed at the stone. If you are awake, you may feel a tapping sensation as the shock waves pass through your body. The procedure may vary among health care providers and hospitals. What happens after the procedure? You may have an X-ray to see whether the procedure was able to break up the kidney stone and how much of the stone has passed. If large stone fragments remain after treatment, you may need to have a second procedure at a later time. Your blood pressure, heart rate, breathing rate, and blood oxygen level will be monitored until themedicines you were given have worn off. You may be given antibiotics or pain medicine as needed. If a stent was placed in your ureter during surgery, it may stay in place for a few weeks. You may need strain your urine to collect pieces of the kidney stone for testing. You will need to drink plenty of water. Do not drive for 24 hours if you were given a sedative. Summary Lithotripsy is a treatment that can sometimes help eliminate kidney stones and the pain that they cause. A form of lithotripsy, also known as extracorporeal shock wave lithotripsy, is a nonsurgical procedure that crushes a kidney stone with shock waves. Generally, this is a safe procedure. However, problems may occur, including damage to the kidney orother organs, infection, or obstruction of the tube that carries urine from the kidney to the bladder (ureter). When you go home, you will need to drink plenty of water. You may be asked to strain your urine to collect pieces of the kidney stone for testing. This information is not intended to replace advice given to you by your health care provider. Make sure you discuss any questions you have with your health care provider. Document Released: 09/23/2001 Document Revised: 01/07/2020 Document Reviewed: 08/17/2017 spotflux Patient Education 2020 [employer]. Follow Up Care 04/13/2022 09:57:29 With:Cadence Green MD, URL, URO Address: When: Unknown Comments:ESWL [facility] evaluation + Plan note Future Appointments Appointment Date:04/27/2022 08:00:00 AM Scheduled Provider: Location:[facility] Appointment Type:Surgery CALL PAT FT Appointment Date:05/04/2022 11:00:00 AM Scheduled Provider: Location:[facility] Appointment Type:Surgery FT [facility] evaluation + Plan note Future Appointments Appointment Date:03/02/2023 10:15:00 AM Scheduled Provider:Cadence Green MD Location:[facility] Appointment Type:URO Office Visit [facility] evaluation + Plan note Future Appointments Appointment Date:09/12/2024 09:00:00 AM Scheduled Provider:Cadence Green MD Location:[facility] Appointment Type:URO Office Visit [facility] Hospital course Narrative No data available for this section [facility] Hospital Discharge instructions No data available for this section [facility] No data available for this section [facility] [place] Summary Purpose Family History No Family History Records Found No data available for this section No Family History Records Found Advance Directives No Advanced Directives Records FoundNo Advanced Directives Records Found Additional Source Comments Care Team (unrecognized sect ion and content) Personnel Name: Francisco Galan MD Address: [address] [place] [address], [place] [address] Personnel Name: Francisco Galan MD Address: [address] [place] [address], [place] [address] [place] Personnel Name: Francisco Galan MD Address: [address] [place] [address], [place] [address] [place] Personnel Name: Francisco Galan MD Address: Address: [address] [place] [address], [place] [address] [place] Personnel Name: Francisco Galan MD Address: Address: [address] [place] [address], [place] [address] Personnel Name: Francisco Galan MD Address: Address: [address] [place] [address], [place] [address] [place] Personnel Name: Francisco Galan MD Address: Address: [address] [place] [address] INFORMATION SOURCE (unrecogn ized section and content) DATE CREATED AUTHOR 02/19/2023 [facility] DATE CREATED AUTHOR AUTHOR'S ORGANIZ ATION 09/09/2023 [facility] FOR RECORDS PERTAINING TO PATIENTS WHO ARE OR HAVE BEEN ENROLLED IN A CHEMICAL DEPENDENCY/SUBSTANCEABUSE PROGRAM, SOME INFORMATION MAY BE OMITTED. This clinical summary was aggregated from multiple sources. Caution should be exercised in using it in the provision of clinical care. This summary normalizes information from multiple sources, and as a consequence, information in this document may materially change the coding, format and clinical context of patient data. In addition, data may be omitted in some cases. CLINICAL DECISIONS SHOULD BE BASED ON THE PRIMARY CLINICAL RECORDS. [employer] [facility]. provides no warranty or guarantee of the accuracy or completeness of information in this document.
--- NOTE | 2024-08-20 09:10 | XR_ITS ---
The [address] [address] Patient Name: VARSHA CARTER MRN: [id number] date: 1950 Sex: F Assigned Patient Location: [facility] Current Patient Location: [facility] Accession/Order Number: [id number] Exam Date: 08/20/2024 10:53 Report Date: 08/23/2024 04:26 At the request of: DEDRA SAMUELS Procedure: XR abdomen 1V EXAMINATION: XR abdomen 1V HISTORY: Kidney Stone COMPARISON: XR abdomen 08/26/2023 FINDINGS: KIDNEY/URETER - RIGHT: Collection of stones versus a large 10 mm stone within superior pole of right kidney. KIDNEY/URETER - LEFT: No visible renal or ureteral calcifications. PELVIS: Numerous pelvic calcifications favoring phleboliths. No convincing ureteral stone. BOWEL: No abnormal dilation or deviation. BONES: No acute abnormality. OTHER: Negative. No abnormal gaseous collections. XR/XR abdomen 1V IMPRESSION: 1. Stable right nephrolithiasis. Electronically authenticated by: VANESSA ASHTON Date: 08/23/2024 04:26
--- NOTE | 2024-08-20 09:10 | US_ITS ---
[place] [id number] Patient Name: VARSHA CARTER MRN: [id number] date: 1950 Sex: F Assigned Patient Location: [facility] Current Patient Location: Accession/Order Number: [id number] Exam Date: 08/20/2024 09:38 Report Date: 08/21/2024 15:14 At the request of: DEDRA SAMUELS Procedure: US renal BI EXAMINATION: US renal BI HISTORY: Kidney Stones COMPARISON: No relevant comparison available. TECHNIQUE: Ultrasound examination was performed of the bladder. FINDINGS: Right Kidney: Normal in size, contour and echotexture. No solid cortical mass or hydronephrosis. Echogenic focus in the midpole measuring 1.2 cm, nephrolithiasis favored Height: 3.94 cm Length: 8.26 cm Width: 4.39 cm Left Kidney: Normal in size, contour and echotexture. No solid cortical mass or hydronephrosis. Echogenic focus in the midpole measuring 0.3 cm, nephrolithiasis favored Height: 5.47 cm Length: 9.25 cm Width: 3.69 cm Urinary bladder: 162 mL US/US renal BI IMPRESSION: Bilateral nonobstructing nephrolithiasis Electronically authenticated by: ELLIE MONTILLA Date: 08/21/2024 15:14
== END 2024-08-20 08:37 | disposition home or self-care (01) ==
LOC: RAD 08:37
PROVIDERS: PCP Family Medicine; Visit Provider Urology
DX: N20.0 Calculus of kidney (principal)
CPT/HCPCS: 74018; 76775

== ENCOUNTER 2024-08-20 08:39 | Outpatient (OUT) | payer MEDICARE, OTHER, SELFPAY ==
--- OUTSIDE RECORDS SUMMARY | 2024-08-20 08:56 | XMS_ITS | CCD ---
Author Organization [facility] Care Team Providers Care Supervisor Airplane Flight Attendant Name Role Phone Francisco Galan Primary Care Physician [phone] DR ELLIE MONTILLA V Consulting Unavailable MAR [...] Medication Allergies] Propensity to adverse reactions (disorder) [facility] Repository Medications Current Medications Medication Drug Class(es) [...] pain, # 90 tab(s), Refills(s) 0, Pharmacy: [facility], 162, cm, 04/30/22 8:03:00 EDT, Height/Length Dosing, 50.9, kg, 05/04/22 8:39:00 EDT, Weight Dosing Start Date: 05/04/22 Status: Ordered tamsulosin hydrochloride 0.4 mg oral capsule (2 sources) alpha-Adrenergic Blas Start: 05-26-2022 take 1 capsule by mouth once daily tamsulosin 0.4 mg Cap 0.4 mg = 1 cap(s), Oral, Daily, Stent pain, stone passage, # 30 cap(s), Refills(s) 1, Pharmacy: [facility], 159, cm, 05/26/22 9:44:00 EDT, Height/Length Dosing, 50.9, kg, 05/26/22 9:44:00 EDT, Weight Dosing Start Date: 05/26/22 Status: Ordered Start: 05-04-2022 take 1 capsule by [facility] once daily tamsulosin 0.4 mg Cap 0.4 mg = 1 cap(s), Oral, Daily, Stent pain, stone passage, # 30 cap(s), Refills(s) 1, Pharmacy: [facility], 162, cm, 04/30/22 8:03:00 [...] Urnls Dip Stick Auto w/o Microscopy POC 48503 US Renal -- Results Pending -- XR [...] Cadence Green MD Where: [facility] Patient Educationon 09-07-20 23 [...] Spinach (cooked), rhubarb, beets, sweet potatoes, and Nepalese chard. ? Peanuts. ? Potato chips, vincentian fries, and baked potatoes with skin on. ? Nuts and nut products. ? Chocolate. ? If you regularly take a diuretic medicine, make sure to eat at least 1 or 2 servings of fruits or vegetables that are high in potassium each day. These include: ? Avocado. ? Banana. ? [place], prune, carrot, or tomato juice. ? Baked [...] fish oil, or vitamin B6. ? Take kdjp-ryq-aunbwfb and prescription medicines only as told by your health care provider. These include supplements. What foods sh (more content not included)... Normal [facility] Urology Office/Clinic Noteon 09-07-2023 Urology Office/Clinic Note Chief Complaint 6m ANDREW & KUB HPI Staff 73 yo female here for 6 month f/u with ANDREW and KUB. Previous Dx: kidney stone, calyceal diverticulum, nocturia. S/p Cysto/R RG/Stone Basket Extraction/R Calyx Bx/R stent removal 07/28/22 and R ESWL 05/04/22. KUB & ANDREW 08/26/23 at [facility]. Denies flank pain. Denies UTI since [...] renal stones, largest measuring up to 5mm ANDREW 08/26/23 - BL renal stones, RMP 1.1x0.7x1.2cm, [...] with voice recognition artificial intelligence software, specifically [employer], Zazum and or iDoc24. Substitutions may have occurred due to the inherent limitations of voice recognition and artificial intelligence software. Doc (more content not included)... Normal [facility] Comment on above: Result Comment: Elec tronically Signed By: Cadence Green MD\.br\Date and Time Signed: 09/07/23 18:17 EST\.br\Electronically Co-Signed By: Odette Khoury\.br\Date and Time Co-Signed: 09/07/23 10:23 EST RAD - Ultrasound Reporton RAD - Ultrasound Report [id number] #1.00TIFF Normal [facility] RAD - MISCon 08-30-2023 RAD - MISC [id number] #1.00TIFF Normal [facility] RAD - Ultrasound Reporton RAD - Ultrasound Report [id number]# 1.00TIFF Normal [facility] Reminderson 08-29-2023 Reminders - From: Federica Jara [...] ) Other: PROVIDER RELATED REMINDER:_ ( ) [employer] ( ) Call Pharmacy ( ) Call Lab ( ) Other: Special Instructions:_ Comments:_ Called pt and she states she gets imaging done @ [facility]. Order for ANDREW & KUB were faxed. Called pt and she states she is scheduled for ANDREW & KUB on 08/24/23 @ [facility] KUB in pt chart, ANDREW found on [place] and scanned. Pt follow up on 09/07/23. Normal [facility] Patient Educationon 03-02-20 Patient Education Urology Kidney [...] these instructions at home: Medicines ? Take zijr-sxw-nbudetm and prescription medicines only as told by [...] provider. Document Revised: 05/31/2022 Document Reviewed: 05/31/2022 [employer] Patient Education ? 2022 [employer] [address] [facility] Urology Office/Clinic Noteon 03-02-2023 Urology Office/Clinic Note [...] stone. Stent removed. Renal us 08/19/22 at [facility] - large right nonobstructing stone within [...] URL, URO In 6 months 09/02/2023 EST [address], [place] [address] [phone] Additional Instructions: ANDREW, KUB Patient Education Kidney Stones, [id number] Federica Rueda , personally scribed for Dr. [...] TPV70 SARS-C (more content not included)... Normal [facility] Comment on above: Result Comment: Elec tronically Signed By: Cadence Green MD\.br\Date and Time Signed: 03/02/23 16:19 EDT\.br\Electronically Co-Signed By: Federica Jara MA\.br\Date and Time Co-Signed: 03/02/23 12:17 EDT INSULINon 02-19-2023 Insulin 7.9 uIU/mL Normal 2.6-24.9 [facility] Comment on above: Performed By: #### I NSULIN #### [facility] [address] [address] [address] Chuck Leach CBC AUTO DIFFon 02-18-2023 BASO # 0.0 103/ul Normal 0.0-0.1 [facility] Comment on above: Performed By: #### C BC #### [facility] [address] [address] [address] Chuck Leach Basophils/100 WBC (Bld) 0.3 % Normal 0.2-2.0 [facility] Comment on above: Performed By: #### C BC #### [facility] [address] [place] [address] Dr. Chuck Leach EO # 0.0 103/ul Normal 0.0-0.7 [facility] Comment on above: Performed By: #### C BC #### [facility] [address] [place] [address] Dr. Chuck Leach Eosinophils/100 WBC (Bld) 0.1 % Critically low 0.9-7.0 [facility] Comment on above: Performed By: #### C BC #### [facility] [address] [place] [address] Dr. Chuck Leach Erythrocyte distribution width (RBC) [Ratio] 13.6 % Normal 11.0-15.0 [facility] Comment on above: Performed By: #### C BC #### [facility] [address] [place] [address] Dr. Chuck Leach Hematocrit (Bld) [Volume fraction] 41.6 % Normal 36.0-48.0 [facility] Comment on above: Performed By: #### C BC #### [facility] [address] [place] [address] Dr. Chuck Leach Hemoglobin (Bld) [Mass/Vol] 13.3 g/dL Normal 12.0-16.0 [facility] Comment on above: Performed By: #### C BC #### [facility] [address] [place] [address] Dr. Chuck Lecah IG # 0.02 10e3/ul Normal 0.00-0.03 [facility] Comment on above: Performed By: #### C BC #### [facility] [address] [place] [address] Dr. Chuck Leach IG % 0.3 % Normal 0.0-0.5 [facility] Comment on above: Performed By: #### C BC #### [facility] [address] [place] [address] Dr. Chuck Leach LYMPH # 1.3 103/ul Normal 1.2-3.8 [facility] Comment on above: Performed By: #### C BC #### [facility] [address] [place] [address] Dr. Chuck Leach Lymphocytes/100 WBC (Bld) 18.0 % Critically low 20.5-60.0 [facility] Comment on above: Performed By: #### C BC #### [facility] [address] [place] [address] Dr. Chuck Leach MANUAL DIFF REQ NO Normal [facility] Comment on above: Performed By: #### C BC #### [facility] [address] [place] [address] Dr. Chuck Leach MCH (RBC) [Entitic mass] 27.5 pg Normal 26.7-34.0 [facility] Comment on above: Performed By: #### C BC #### [facility] [address] [place] [address] Dr. Chuck Leach MCHC (RBC) [Mass/Vol] 32.0 g/dL Normal 29.9-35.2 [facility] Comment on above: Performed By: #### C BC #### [facility] [address] [place] [address] Dr. Chuck Leach MCV (RBC) [Entitic vol] 86.1 fL Normal 81.0-99.0 [facility] Comment on above: Performed By: #### C BC #### [facility] [address] [place] [address] Dr. Chuck Leach MONO # 0.5 103/ul Normal 0.3-0.8 [facility] Comment on above: Performed By: #### C BC #### [facility] [address] [place] [address] Dr. Chuck Leach Monocytes/100 WBC (Bld) 6.7 % Normal 1.7-12.0 [facility] Comment on above: Performed By: #### C BC #### [facility] [address] [place] [address] Dr. Chuck Leach NEUT # 5.3 103/ul Normal 1.4-6.5 [facility] Comment on above: Performed By: #### C BC #### [facility] [address] [address] [address] Chuck Leach Neutrophils/100 WBC (Bld) 74.6 % Normal 43.0-75.0 [facility] Comment on above: Performed By: #### C BC #### [facility] [address] [place] [address] Dr. Chukc Leach Platelet mean volume (Bld) [Entitic vol] 9.9 fL Normal 9.5-13.5 [facility] Comment on above: Performed By: #### C BC #### [facility] [address] [place] [address] Dr. Chuck eLach PLT 330 103/ul Normal 150-450 [facility] Comment on above: Performed By: #### C BC #### [facility] [address] [place] [address] Dr. Chuck Leach RBC 4.83 106/ul Normal 4.20-5.40 [facility] Comment on above: Performed By: #### C BC #### [facility] [address] [place] [address] Dr. Chuck Leach WBC 7.2 103/ul Normal 4.0-11.0 [facility] Comment on above: Performed By: #### C BC #### [facility] [address] [place] [address] Dr. Chuck Leach FREE THYROXINE INDEX T7on FTI 2.31 Normal 1.30-4.50 [facility] Comment on above: Performed By: #### L IPID, T7, TSH, CMP #### [facility] [address] [place] [address] Dr. Chuck Leach T3U 30.0 % Normal 30.0-39.0 [facility] Comment on above: Performed By: #### L IPID, T7, TSH, CMP #### [facility] [address] [place] [address] Dr. Chuck Leach T4 [Mass/Vol] 7.70 ug/dL Normal 4.80-13.90 [facility] Comment on above: Performed By: #### L IPID, T7, TSH, CMP #### [facility] [address] [address] [address] Chuck Leach GLYCOHEMOGLOBIN A1Con 2022 ADA RECOMMENDATION SEE BELOW Normal [facility] Comment on above: Result Comment: ADA RECOMMENDED LIMIT 4.0 - 6.0 ADA THERAPEUTIC TARGET < 7.0 ACTION SUGGESTED > 7.0 Performed By: #### A 1C #### [facility] [address] [address] [address] Chuck Leach Glucose [Mass/Vol] 108 mg/dL Normal [facility] Comment on above: Performed By: #### A 1C #### [facility] [address] [place] [address] Dr. Chuck Leach HbA1c (Bld) [Mass fraction] 5.4 % Normal 4.5-6.2 [facility] Comment on above: Performed By: #### A 1C #### [facility] [address] [address] [address] Chuck Leach IRONon 02-18-2023 Iron [Mass/Vol] 56.0 ug/dL Normal 50.0-170.0 [facility] Comment on above: Performed By: #### L IPID, T7, TSH, CMP #### [facility] [address] [place] [address] Dr. Chuck Leach LIPID PROFILEon 02-18-2023 CHOL-HDL RATIO NORM SEE BELOW Normal [facility] Comment on above: Result Comment: 3.3 - 4.4 LOW RISK 4.4 - 7.1 AVERAGE RISK 7.1 - 11.0 MODERATE RISK >11.0 HIGH RISK Performed By: #### L IPID, T7, TSH, CMP #### [facility] [address] [place] [address] Dr. Chuck Leach Cholesterol [Mass/Vol] 311 mg/dL Critically high <=200 [facility] Comment on above: Performed By: #### L IPID, T7, TSH, CMP #### [facility] [address] [place] [address] Dr. Chuck Leach Cholesterol in HDL [Mass/Vol] 77 mg/dL Critically high 40-60 [facility] Comment on above: Performed By: #### L IPID, T7, TSH, CMP #### [facility] [address] [address] [address] Chuck Leach Cholesterol in LDL [Mass/Vol] 203.6 mg/dL Normal [facility] Comment on above: Performed By: #### L IPID, T7, TSH, CMP #### [facility] [address] [address] [address] Chuck Leach Cholesterol.total/[place] sterol in HDL [Mass ratio] 4.0 {ratio} Normal [facility] Comment on above: Performed By: #### L IPID, T7, TSH, CMP #### [facility] [address] [place] [address] Dr. Chuck Leach HDL NORMAL > or = 60 mg/dl - LOW CARDIOVASCULAR RISK <40 mg/dl - HIGH CARDIOVASCULAR RISK Normal [facility] Comment on above: Performed By: #### L IPID, T7, TSH, CMP #### [facility] [address] [place] [address] Dr. Chuck Leach LDL CALC NORMAL SEE BELOW Normal [facility] Comment on above: Result Comment: <100 mg/dl OPTIMAL 100 - 129 mg/dl NEAR OR ABOVE OPTIMAL 130 - 159 mg/dl BORDERLINE HIGH 160 - 189 mg/dl HIGH >190 mg/dl VERY HIGH Performed By: #### L IPID, T7, TSH, CMP #### [facility] [address] [address] [address] Chuck Leach Triglyceride [Mass/Vol] 152 mg/dL Critically high <=150 [facility] Comment on above: Performed By: #### L IPID, T7, TSH, CMP #### [facility] [address] [place] [address] Dr. Chuck Leach VLDL CALC 30.4 mg/dL Normal [facility] Comment on above: Performed By: #### L IPID, T7, TSH, CMP #### [facility] [address] [place] [address] Dr. Chuck Leach PROF 14(COMP METB)on 023 Albumin [Mass/Vol] 4.1 g/dL Normal 3.4-5.0 [facility] Comment on above: Performed By: #### L IPID, T7, TSH, CMP #### [facility] [address] [place] [address] Dr. Chuck Leach Albumin/Globulin [Mass ratio] 1.0 {ratio} Normal [facility] Comment on above: Performed By: #### L IPID, T7, TSH, CMP #### [facility] [address] [place] [address] Dr. Chuck Leach ALP [Catalytic activity/Vol] 126 U/L Critically high 46-116 [facility] Comment on above: Performed By: #### L IPID, T7, TSH, CMP #### [facility] [address] [place] [address] Dr. Chuck Leach ALT [Catalytic activity/Vol] 18 U/L Normal 14-59 [facility] Comment on above: Performed By: #### L IPID, T7, TSH, CMP #### [facility] [address] [address] [address] Chuck Leach Anion gap [Moles/Vol] 12.9 mmol/L Normal [facility] Comment on above: Performed By: #### L IPID, T7, TSH, CMP #### [facility] [address] [place] [address] Dr. Chuck Leach AST [Catalytic activity/Vol] 18 U/L Normal 15-37 [facility] Comment on above: Performed By: #### L IPID, T7, TSH, CMP #### [facility] [address] [place] [address] Dr. Chuck Leach Bilirubin [Mass/Vol] 0.5 mg/dL Normal 0.2-1.0 [facility] Comment on above: Performed By: #### L IPID, T7, TSH, CMP #### [facility] [address] [place] [address] Dr. Chuck Leach Calcium [Mass/Vol] 9.3 mg/dL Normal 8.5-10.1 [facility] Comment on above: Performed By: #### L IPID, T7, TSH, CMP #### [facility] [address] [address] [address] Chuck Leach Chloride [Moles/Vol] 101 mmol/L Normal 98-107 [facility] Comment on above: Performed By: #### L IPID, T7, TSH, CMP #### [facility] [address] [address] [address] Chuck Leach CO2 [Moles/Vol] 24.7 mmol/L Normal 21.0-32.0 [facility] Comment on above: Performed By: #### L IPID, T7, TSH, CMP #### [facility] [address] [place] [address] Dr. Chuck Leach Creatinine [Mass/Vol] 0.91 mg/dL Normal 0.55-1.02 [facility] Comment on above: Performed By: #### L IPID, T7, TSH, CMP #### [facility] [address] [address] [address] Chuck Leach EGFR-AF [place] CITIZ[place] >60 Normal >=60 [facility] Comment on above: Performed By: #### L IPID, T7, TSH, CMP #### [facility] [address] [place] [address] Dr. Chuck Leach EGFR-NON AF [place] CITIZ[place] >60 Normal >=60 [facility] Comment on above: Performed By: #### L IPID, T7, TSH, CMP #### [facility] [address] [address] [address] Chuck Leach Globulin (S) [Mass/Vol] 4.0 g/dL Normal T [facility] Comment on above: Performed By: #### L IPID, T7, TSH, CMP #### [facility] [address] [place] [address] Dr. Chuck Leach Glucose [Mass/Vol] 92 mg/dL Normal 74-106 [facility] Comment on above: Performed By: #### L IPID, T7, TSH, CMP #### [facility] [address] [place] [address] Dr. Cuhck Leach Potassium [Moles/Vol] 3.7 mmol/L Normal 3.5-5.1 [facility] Comment on above: Performed By: #### L IPID, T7, TSH, CMP #### [facility] [address] [place] [address] Dr. Chuck Leach Protein [Mass/Vol] 8.1 g/dL Normal 6.4-8.2 [facility] Comment on above: Performed By: #### L IPID, T7, TSH, CMP #### [facility] [address] [place] [address] Dr. Chuck Leach Sodium [Moles/Vol] 135 mmol/L Critically low 136-145 [facility] Comment on above: Performed By: #### L IPID, T7, TSH, CMP #### [facility] [address] [place] [address] Dr. Chuck Leach Urea nitrogen [Mass/Vol] 12.0 mg/dL Normal 7.0-18.0 [facility] Comment on above: Performed By: #### L IPID, T7, TSH, CMP #### [facility] [address] [place] [address] Dr. Chuck Leach Urea nitrogen/Creatinine [Mass ratio] 13.2 mg/mg Normal [facility] Comment on above: Performed By: #### L IPID, T7, TSH, CMP #### [facility] [address] [place] [address] Dr. Chuck Leach TSHon 02-18-2023 TSH 7.493 uIU/mL Critically high 0.358-3.740 [facility] Comment on above: Performed By: #### L IPID, T7, TSH, CMP #### [facility] [address] [place] [address] Dr. Chuck Leach US KIDNEYSon 02-18-2023 US [...] by: ELLIE MONTILLA Date: 2023-02-18 09:56 Normal [facility] XR KUB 1 VIEWon 02-18-2023 [...] VANESSA ASHTON Date: 2023-02-18 10:12 Normal [facility] US KIDNEYSon 08-19-2022 US KIDNEYS EXAMINATION: US [...] VANESSA ASHTON Date: 2022-08-19 09:59 Normal [facility] CALCULI, URINARYon 2 2,8 Dihydroxyadenine Normal [facility] Comment on above: Performed By: #### L IPID, T7, TSH, CMP #### [facility] [address] [address] [address] Chuck Leach Ammonium Acid Urate Normal [facility] Comment on above: Performed By: #### L IPID, T7, TSH, CMP #### [facility] [address] [address] [address] Chuck Leach Bilirubin Ql (U) Normal [facility] Comment on above: Performed By: #### L IPID, T7, TSH, CMP #### [facility] [address] [address] [address] Chuck Leach Ca Oxalate Dihydrate Normal [facility] Comment on above: Performed By: #### L IPID, T7, TSH, CMP #### [facility] [address] [address] [address] Chuck Leach CaHPO4 (Brushite) [facility] Comment on above: Performed By: #### L IPID, T7, TSH, CMP #### [facility] [address] [address] [address] Chuck Leach Calcium Bilirubinate Normal [facility] Comment on above: Performed By: #### L IPID, T7, TSH, CMP #### [facility] [address] [address] [address] Chuck Leach Calcium Carbonate Normal [facility] Comment on above: Performed By: #### L IPID, T7, TSH, CMP #### [facility] [address] [address] [address] Chuck Leach Calcium Oxalate Monohydrate Normal [facility] Comment on above: Performed By: #### L IPID, T7, TSH, CMP #### [facility] [address] [address] [address] Chuck Leach Calcium Palmitate Normal [facility] Comment on above: Performed By: #### L IPID, T7, TSH, CMP #### [facility] [address] [address] [address] Chuck Leach Calcium Phosphate Normal [facility] Comment on above: Performed By: #### L IPID, T7, TSH, CMP #### [facility] [address] [address] [address] Chuck Leach Calcium Stearate Normal [facility] Comment on above: Performed By: #### L IPID, T7, TSH, CMP #### [facility] [address] [address] [address] Chuck Leach Carbonate Apatite Normal [facility] Comment on above: Performed By: #### L IPID, T7, TSH, CMP #### [facility] [address] [address] [address] Chuck Leach Cellular Material [facility] Comment on above: Performed By: #### L IPID, T7, TSH, CMP #### [facility] [address] [address] [address] Chuck Leach Cholesterol [facility] Comment on above: Performed By: #### L IPID, T7, TSH, CMP #### [facility] [address] [address] [address] Chuck Leach Color (U) Luna [facility] Comment on above: Performed By: #### L IPID, T7, TSH, CMP #### [facility] [address] [address] [address] Chuck Leach Comment Comment Normal [facility] Comment on above: Result Comment: Insu fficient sample: possibility of struvite as a minor component should not be excluded. Performed By: #### L IPID, T7, TSH, CMP #### [facility] [address] [address] [address] Chuck Leach Result Comment: Calc ulus received wet. Wet calculi must be dried before analysis, which delays reporting of results. Leaving calculi wet (such as water, saline, blood, urine) may lead to changes in composition. Comment: Comment Normal [facility] Comment on above: Result Comment: Phys ician questions regarding Calculi Analysis contact [email or web address] at: [phone]. Performed By: #### L IPID, T7, TSH, CMP #### [facility] [address] [address] [address] Chuck Leach Composition Comment Normal [facility] Comment on above: Result Comment: Perc entage (Represents the % composition) Performed By: #### L IPID, T7, TSH, CMP #### [facility] [address] [address] [address] Chuck Leach Cystine Normal [facility] Comment on above: Performed By: #### L IPID, T7, TSH, CMP #### [facility] [address] [address] [address] Chuck Leach Disclaimer: Comment Normal [facility] [facility] Comment on above: Result Comment: This test was developed and its performance characteristics determined by [employer]. It has not been cleared or approved by the Food and Drug Administration. Performed By: #### L IPID, T7, TSH, CMP #### [facility] [address] [place] [address] Dr. Chuck Leach Dried Blood Normal [facility] Comment on above: Performed By: #### L IPID, T7, TSH, CMP #### [facility] [address] [address] [address] Chuck Leach Drug or Metabolite Normal [facility] Comment on above: Performed By: #### L IPID, T7, TSH, CMP #### [facility] [address] [address] [address] Chuck Leach Hydroxyapatite 100 % Normal [facility] Comment on above: Performed By: #### L IPID, T7, TSH, CMP #### [facility] [address] [address] [address] Chuck Leach Mg NH4 PO4 (Struvite) Normal [facility] Comment on above: Performed By: #### L IPID, T7, TSH, CMP #### [facility] [address] [place] [address] Dr. Chuck Leach MgHPO4 (Newberyite) Normal [facility] Comment on above: Performed By: #### L IPID, T7, TSH, CMP #### [facility] [address] [address] [address] Chuck Leach Other component(s) Normal [facility] Comment on above: Performed By: #### L IPID, T7, TSH, CMP #### [facility] [address] [address] [address] Chuck Leach PDF . Normal [facility] Comment on above: Performed By: #### L IPID, T7, TSH, CMP #### [facility] [address] [address] [address] Chuck Leach Photo Comment [facility] Comment on above: Result Comment: Phot ograph will follow under a separate cover Performed By: #### L IPID, T7, TSH, CMP #### [facility] [address] [address] [address] Chuck Leach Please note: Comment Normal [facility] Comment on above: Result Comment: Calc ryan report will follow via computer, mail or statistics professor delivery. Performed By: #### L IPID, T7, TSH, CMP #### [facility] [address] [address] [address] Chuck Leach Size 1x1 [facility] Comment on above: Result Comment: Sing le piece received. Performed By: #### L IPID, T7, TSH, CMP #### [facility] [address] [address] [address] Chuck Leach Sodium Acid Urate Normal [facility] Comment on above: Performed By: #### L IPID, T7, TSH, CMP #### [facility] [address] [address] [address] Chuck Leach Source Comment [facility] Comment on above: Result Comment: Righ t Kidney Performed By: #### L IPID, T7, TSH, CMP #### [facility] [address] [address] [address] Chuck Leach Triamterene [facility] Comment on above: Performed By: #### L IPID, T7, TSH, CMP #### [facility] [address] [address] [address] Chuck Leach Uric Acid Normal [facility] Comment on above: Performed By: #### L IPID, T7, TSH, CMP #### [facility] [address] [address] [address] Chuck Leach Uric Acid Dihydrate Normal [facility] Comment on above: Performed By: #### L IPID, T7, TSH, CMP #### [facility] [address] [address] [address] Chuck Leach Weight <1 Normal [facility] Comment on above: Performed By: #### L IPID, T7, TSH, CMP #### [facility] [address] [address] [address] Chuck Leach Xanthine [facility] Comment on above: Performed By: #### L IPID, T7, TSH, CMP #### [facility] [address] [address] [address] Chuck Leach CYTOLOGYon 07-28-2022 SENT TO REF LAB 07/28/2022 [facility] Comment on above: Performed By: #### L IPID, T7, TSH, CMP #### [facility] [address] [address] [address] Chuck Leach Covid-19 PCR (CVDTB)on 07-10 SARS-CoV-2 (COVID-19) RNA GUSTAVO+probe Ql (Unsp spec) Not detected Normal NOT DETECTED [facility] Comment on above: Result Comment: This test is not yet approved or cleared by the [place] FDA. When there are no FDA-approved or cleared tests available, and other criteria are met, FDA can make tests available under an emergency access mechanism called an Emergency Use Authorization (EUA). The EUA for this test is supported by the [place] of Health and Human Service's (HHS's) declaration [...] #### L IPID, T7, TSH, CMP #### [facility] [address] [place] [address] Dr. Chuck Leach CBC AUTO DIFFon 07-16-2022 BASO # 0.0 103/ul Normal 0.0-0.1 [facility] Comment on above: Performed By: #### C BC #### [facility] [address] [place] [address] Dr. Chuck Leach Basophils/100 WBC (Bld) 0.3 % Normal 0.2-2.0 [facility] Comment on above: Performed By: #### C BC #### [facility] [address] [place] [address] Dr. Chuck Leach EO # 0.1 103/ul Normal 0.0-0.7 [facility] Comment on above: Performed By: #### C BC #### [facility] [address] [place] [address] Dr. Chuck Leach Eosinophils/100 WBC (Bld) 0.9 % Normal 0.9-7.0 [facility] Comment on above: Performed By: #### C BC #### [facility] [address] [place] [address] Dr. Chuck Leach Erythrocyte distribution width (RBC) [Ratio] 14.4 % Normal 11.0-15.0 [facility] Comment on above: Performed By: #### C BC #### [facility] [address] [place] [address] Dr. Chuck Leach Hematocrit (Bld) [Volume fraction] 40.9 % Normal 36.0-48.0 [facility] Comment on above: Performed By: #### C BC #### [facility] [address] [place] [address] Dr. Chuck Leach Hemoglobin (Bld) [Mass/Vol] 12.8 g/dL Normal 12.0-16.0 [facility] Comment on above: Performed By: #### C BC #### [facility] [address] [place] [address] Dr. Chuck Leach IG # 0.01 10e3/ul Normal 0.00-0.03 [facility] Comment on above: Performed By: #### C BC #### [facility] [address] [place] [address] Dr. Chuck Leach IG % 0.2 % Normal 0.0-0.5 [facility] Comment on above: Performed By: #### C BC #### [facility] [address] [place] [address] Dr. Chuck Leach LYMPH # 1.4 103/ul Normal 1.2-3.8 [facility] Comment on above: Performed By: #### C BC #### [facility] [address] [place] [address] Dr. Chuck Leach Lymphocytes/100 WBC (Bld) 23.7 % Normal 20.5-60.0 [facility] Comment on above: Performed By: #### C BC #### [facility] [address] [place] [address] Dr. Chuck Leach MANUAL DIFF REQ NO Normal [facility] Comment on above: Performed By: #### C BC #### [facility] [address] [place] [address] Dr. Chuck Leach MCH (RBC) [Entitic mass] 27.4 pg Normal 26.7-34.0 [facility] Comment on above: Performed By: #### C BC #### [facility] [address] [place] [address] Dr. Chuck Leach MCHC (RBC) [Mass/Vol] 31.3 g/dL Normal 29.9-35.2 [facility] Comment on above: Performed By: #### C BC #### [facility] [address] [place] [address] Dr. Chuck Leach MCV (RBC) [Entitic vol] 87.6 fL Normal 81.0-99.0 [facility] Comment on above: Performed By: #### C BC #### [facility] [address] [address] [address] Chuck Leach MONO # 0.4 103/ul Normal 0.3-0.8 [facility] Comment on above: Performed By: #### C BC #### [facility] [address] [place] [address] Dr. Chuck Leach Monocytes/100 WBC (Bld) 7.3 % Normal 1.7-12.0 [facility] Comment on above: Performed By: #### C BC #### [facility] [address] [place] [address] Dr. Chuck Leach NEUT # 3.9 103/ul Normal 1.4-6.5 [facility] Comment on above: Performed By: #### C BC #### [facility] [address] [place] [address] Dr. Chuck Leach Neutrophils/100 WBC (Bld) 67.6 % Normal 43.0-75.0 [facility] Comment on above: Performed By: #### C BC #### [facility] [address] [place] [address] Dr. Chuck Leach Platelet mean volume (Bld) [Entitic vol] 9.9 fL Normal 9.5-13.5 [facility] Comment on above: Performed By: #### C BC #### [facility] [address] [place] [address] Dr. Chuck Leach PLT 342 103/ul Normal 150-450 [facility] Comment on above: Performed By: #### C BC #### [facility] [address] [place] [address] Dr. Chuck Leach RBC 4.67 106/ul Normal 4.20-5.40 [facility] Comment on above: Performed By: #### C BC #### [facility] [address] [place] [address] Dr. Chuck Leach WBC 5.7 103/ul Normal 4.0-11.0 [facility] Comment on above: Performed By: #### C BC #### [facility] [address] [place] [address] Dr. Chuck Leach PROF CHEM 8 (BAS METB)on Anion gap [Moles/Vol] 10.9 mmol/L Normal [facility] Comment on above: Performed By: #### L IPID, T7, TSH, CMP #### [facility] [address] [place] [address] Dr. Chuck Leach Calcium [Mass/Vol] 8.9 mg/dL Normal 8.5-10.1 [facility] Comment on above: Performed By: #### L IPID, T7, TSH, CMP #### [facility] [address] [place] [address] Dr. Chuck Leach Chloride [Moles/Vol] 102 mmol/L Normal 98-107 [facility] Comment on above: Performed By: #### L IPID, T7, TSH, CMP #### [facility] [address] [place] [address] Dr. Chuck Leach CO2 [Moles/Vol] 24.6 mmol/L Normal 21.0-32.0 [facility] Comment on above: Performed By: #### L IPID, T7, TSH, CMP #### [facility] [address] [place] [address] Dr. Chuck Leach Creatinine [Mass/Vol] 0.77 mg/dL Normal 0.55-1.02 [facility] Comment on above: Performed By: #### L IPID, T7, TSH, CMP #### [facility] [address] [place] [address] Dr. Chuck Leach EGFR-AF [place] >60 Normal >=60 [facility] Comment on above: Performed By: #### L IPID, T7, TSH, CMP #### [facility] [address] [place] [address] Dr. Chuck Leach EGFR-NON AF [place]IZ[place] >60 Normal >=60 [facility] Comment on above: Performed By: #### L IPID, T7, TSH, CMP #### [facility] [address] [place] [address] Dr. Chuck Leach Glucose [Mass/Vol] 86 mg/dL Normal 74-106 [facility] Comment on above: Performed By: #### L IPID, T7, TSH, CMP #### [facility] [address] [address] [address] Chuck Leach Potassium [Moles/Vol] 3.5 mmol/L Normal 3.5-5.1 [facility] Comment on above: Performed By: #### L IPID, T7, TSH, CMP #### [facility] [address] [place] [address] Dr. Chuck Leach Sodium [Moles/Vol] 134 mmol/L Critically low 136-145 [facility] Comment on above: Performed By: #### L IPID, T7, TSH, CMP #### [facility] [address] [place] [address] Dr. Chuck Leach Urea nitrogen [Mass/Vol] 11.0 mg/dL Normal 7.0-18.0 [facility] Comment on above: Performed By: #### L IPID, T7, TSH, CMP #### [facility] [address] [place] [address] Dr. Chuck Leach Urea nitrogen/Creatinine [Mass ratio] 14.3 mg/mg Normal [facility] Comment on above: Performed By: #### L IPID, T7, TSH, CMP #### [facility] [address] [place] [address] Dr. Chuck Leach PROTIMEon 07-16-2022 INR Coag (PPP) [Relative time] 0.95 {INR} Normal [facility] Comment on above: Performed By: #### L IPID, T7, TSH, CMP #### [facility] [address] [place] [address] Dr. Chuck Leach INR GUIDELINES SEE BELOW Normal [facility] Comment on above: Result Comment: DAVID RED INR: 2.0 - 3.0 CONDITIONS NOT LISTED BELOW 2.5 - 3.5 FOR PROSTHETIC HEART VALVE REPLACEMENT 2.5 - 3.5 RECURRENT THROMBOSIS Performed By: #### L IPID, T7, TSH, CMP #### [facility] [address] [address] [address] Chuck Leach PT Coag (PPP) [Time] 10.3 s Normal 9.0-11.6 [facility] Comment on above: Performed By: #### L IPID, T7, TSH, CMP #### [facility] [address] [place], [place] [address] Dr. Chuck Leach PTTon 07-16-2022 aPTT Coag (Bld) [Time] 28.4 s Normal 22.3-36.2 [facility] Comment on above: Performed By: #### P T, PTT #### [facility] [address] [address] [address] Chuck Leach XR KUB 1 VIEWon [...] by: VANESSA ASHTON Date: 2022-07-08 10:08 Normal [facility] XR KUB 1 VIEWon 06-09-2022 [...] by: VANESSA ASHTON Date: 2022-06-09 11:44 Normal [facility] Covid-19 PCR (CVDTB)on 05-11 SARS-CoV-2 (COVID-19) RNA GUSTAVO+probe Ql (Unsp spec) Not detected Normal NOT DETECTED [facility] Comment on above: Result Comment: This test is not yet approved or cleared by the [place] FDA. When there are no FDA-approved or cleared tests available, and other criteria are met, FDA can make tests available under an emergency access mechanism called an Emergency Use Authorization (EUA). The EUA for this test is supported by the [place] of Health and Human Service's (HHS's) declaration [...] #### L IPID, T7, TSH, CMP #### [facility] [address] [place] [address] Dr. Chuck Leach XR KUB 1 VIEWon [...] VANESSA ASHTON Date: 2022-05-24 08:54 Normal [facility] CALCULI, URINARYon 2 2,8 Dihydroxyadenine Normal [facility] Comment on above: Performed By: #### L IPID, T7, TSH, CMP #### [facility] [address] [address] [address] Chuck Leach Ammonium Acid Urate Normal [facility] Comment on above: Performed By: #### L IPID, T7, TSH, CMP #### [facility] [address] [address] [address] Chuck Leach Bilirubin Ql (U) [facility] Comment on above: Performed By: #### L IPID, T7, TSH, CMP #### [facility] [address] [address] [address] Chuck Leach Ca Oxalate Dihydrate 20 % [facility] Comment on above: Performed By: #### L IPID, T7, TSH, CMP #### [facility] [address] [address] [address] Chuck Leach CaHPO4 (Brushite) [facility] Comment on above: Performed By: #### L IPID, T7, TSH, CMP #### [facility] [address] [address] [address] Chuck Leach Calcium Bilirubinate [facility] Comment on above: Performed By: #### L IPID, T7, TSH, CMP #### [facility] [address] [address] [address] Chuck Leach Calcium Carbonate [facility] Comment on above: Performed By: #### L IPID, T7, TSH, CMP #### [facility] [address] [address] [address] Chuck Leach Calcium Oxalate Monohydrate 70 % [facility] Comment on above: Performed By: #### L IPID, T7, TSH, CMP #### [facility] [address] [address] [address] Chuck Leach Calcium Palmitate [facility] Comment on above: Performed By: #### L IPID, T7, TSH, CMP #### [facility] [address] [address] [address] Chuck Leach Calcium Phosphate [facility] Comment on above: Performed By: #### L IPID, T7, TSH, CMP #### [facility] [address] [address] [address] Chuck Leach Calcium Stearate Normal [facility] Comment on above: Performed By: #### L IPID, T7, TSH, CMP #### [facility] [address] [address] [address] Chuck Leach Carbonate Apatite Normal [facility] Comment on above: Performed By: #### L IPID, T7, TSH, CMP #### [facility] [address] [address] [address] Chuck Leach Cellular Material Normal [facility] Comment on above: Performed By: #### L IPID, T7, TSH, CMP #### [facility] [address] [address] [address] Chuck Leach Cholesterol Normal [facility] Comment on above: Performed By: #### L IPID, T7, TSH, CMP #### [facility] [address] [address] [address] Chuck Leach Color (U) Brown Normal [facility] Comment on above: Performed By: #### L IPID, T7, TSH, CMP #### [facility] [address] [address] [address] Chuck Leach Comment Normal [facility] Comment on above: Performed By: #### L IPID, T7, TSH, CMP #### [facility] [address] [address] [address] Chuck Leach Comment Comment Normal [facility] Comment on above: Result Comment: Calc ulus received in liquid. Wet calculi must be dried before analysis, which delays reporting of results. Leaving calculi in liquid (such as water, saline, blood, urine) may lead to changes in composition. Performed By: #### L IPID, T7, TSH, CMP #### [facility] [address] [address] [address] Chuck Leach Comment: Comment Normal [facility] Comment on above: Result Comment: Kevin rajan questions regarding Calculi Analysis [facility] at: [phone]. Performed By: #### L IPID, T7, TSH, CMP #### [facility] [address] [address] [address] Chuck Leach Composition Comment Normal [facility] Comment on above: Result Comment: Perc entage (Represents the % composition) Performed By: #### L IPID, T7, TSH, CMP #### [facility] [address] [address] [address] Chuck Leach Cystine Normal [facility] Comment on above: Performed By: #### L IPID, T7, TSH, CMP #### [facility] [address] [address] [address] Chuck Leach Disclaimer: Comment Normal [facility] Comment on above: Result Comment: This test was developed and its performance characteristics determined by [employer]. It has not been cleared or approved by the Food and Drug Administration. Performed By: #### L IPID, T7, TSH, CMP #### [facility] [address] [address] [address] Chuck Leach Dried Blood Normal [facility] Comment on above: Performed By: #### L IPID, T7, TSH, CMP #### [facility] [address] [place] [address] Dr. Chuck Leach Drug or Metabolite Normal [facility] Comment on above: Performed By: #### L IPID, T7, TSH, CMP #### [facility] [address] [address] [address] Chuck Leach Hydroxyapatite 10 % Normal [facility] Comment on above: Performed By: #### L IPID, T7, TSH, CMP #### [facility] [address] [place] [address] Dr. Chuck eLach Mg NH4 PO4 (Struvite) [facility] Comment on above: Performed By: #### L IPID, T7, TSH, CMP #### [facility] [address] [place] [address] Dr. Chuck Leach MgHPO4 (Newberyite) Normal [facility] Comment on above: Performed By: #### L IPID, T7, TSH, CMP #### [facility] [address] [address] [address] Chuck Leach Other component(s) Normal [facility] Comment on above: Performed By: #### L IPID, T7, TSH, CMP #### [facility] [address] [address] [address] Chuck Leach PDF . Normal [facility] Comment on above: Performed By: #### L IPID, T7, TSH, CMP #### [facility] [address] [address] [address] Chuck Leach Photo Comment [facility] Comment on above: Result Comment: Phot ograph will follow under a separate cover Performed By: #### L IPID, T7, TSH, CMP #### [facility] [address] [address] [address] Chuck Leach Please note: Comment Normal [facility] Comment on above: Result Comment: Calc ryan report will follow via computer, mail or statistics professor delivery. Performed By: #### L IPID, T7, TSH, CMP #### [facility] [address] [address] [address] Chuck Leach Size 4x2 [facility] Comment on above: Result Comment: Mult iple pieces received. Dimensions of the largest piece reported. Performed By: #### L IPID, T7, TSH, CMP #### [facility] [address] [address] [address] Chuck Leach Sodium Acid Urate Normal [facility] Comment on above: Performed By: #### L IPID, T7, TSH, CMP #### [facility] [address] [address] [address] Chuck Leach Source Comment [facility] Comment on above: Result Comment: Not provided Performed By: #### L IPID, T7, TSH, CMP #### [facility] [address] [address] [address] Chuck Leach Triamterene [facility] Comment on above: Performed By: #### L IPID, T7, TSH, CMP #### [facility] [address] [address] [address] Chuck Leach Uric Acid Normal [facility] Comment on above: Performed By: #### L IPID, T7, TSH, CMP #### [facility] [address] [place] [address] Dr. Chuck Leach Uric Acid Dihydrate Normal [facility] Comment on above: Performed By: #### L IPID, T7, TSH, CMP #### [facility] [address] [address] [address] Chuck Leach Weight 139 mg Normal [facility] Comment on above: Performed By: #### L IPID, T7, TSH, CMP #### [facility] [address] [place] [address] Dr. Chuck Leach Xanthine [facility] Comment on above: Performed By: #### L IPID, T7, TSH, CMP #### [facility] [address] [place] [address] Dr. Chuck Leach CULTURE URINEon 04-21-2022 CULTURE URINE Culture Observations: NO GROWTH. Normal [facility] Comment on above: Performed By: #### L IPID, T7, TSH, CMP #### [facility] [address] [place] [address] Dr. Chuck Leach UA RANDOM W/MICROSCOPICon BACTERIA SMALL Abnormal NONE SEEN [facility] Comment on above: Performed By: #### L IPID, T7, TSH, CMP #### [facility] [address] [place] [address] Dr. Chuck Leach Bilirubin Ql (U) Negative Normal NEGATIVE [facility] Comment on above: Performed By: #### L IPID, T7, TSH, CMP #### [facility] [address] [place] [address] Dr. Chuck Leach CAST NONE SEEN Normal NONE SEEN [facility] Comment on above: Performed By: #### L IPID, T7, TSH, CMP #### [facility] [address] [place] [address] Dr. Chuck Leach Clarity (U) CLEAR Normal CLEAR [facility] Comment on above: Performed By: #### L IPID, T7, TSH, CMP #### [facility] [facility] [address] [address] [address] Chuck Leach Color (U) LT. YELLOW Normal YELLOW [facility] Comment on above: Performed By: #### L IPID, T7, TSH, CMP #### [facility] [address] [address] [address] Chuck Leach Crystals LM Nom (Urine sed) NONE SEEN Normal NONE SEEN [facility] Comment on above: Performed By: #### L IPID, T7, TSH, CMP #### [facility] [address] [address] [address] Chuck Leach Epithelial cells LM Ql (Urine sed) FEW Abnormal NONE SEEN /RARE [facility] Comment on above: Performed By: #### L IPID, T7, TSH, CMP #### [facility] [address] [address] [address] Chuck Leach Glucose Ql (U) Negative Normal NEGATIVE [facility] Comment on above: Performed By: #### L IPID, T7, TSH, CMP #### [facility] [address] [address] [address] Chuck Leach Hemoglobin Ql (U) LARGE Abnormal NEGATIVE The [facility] Comment on above: Performed By: #### L IPID, T7, TSH, CMP #### [facility] [address] [address] [address] Chuck Leach Ketones Ql (U) Negative Normal NEGATIVE [facility] Comment on above: Performed By: #### L IPID, T7, TSH, CMP #### [facility] [address] [address] [address] Chuck Leach LEUKOCYTES LARGE Abnormal NEGATIVE [facility] Comment on above: Performed By: #### L IPID, T7, TSH, CMP #### [facility] [address] [address] [address] Chuck Leach MUCOUS NONE SEEN Normal NONE SEEN [facility] Comment on above: Performed By: #### L IPID, T7, TSH, CMP #### [facility] [address] [address] [address] Chuck Leach Nitrite Ql (U) Negative Normal NEGATIVE [facility] Comment on above: Performed By: #### L IPID, T7, TSH, CMP #### [facility] [address] [place] [address] Dr. Chuck Leach pH (U) 6.5 [pH] Normal 5-9 [facility] Comment on above: Performed By: #### L IPID, T7, TSH, CMP #### [facility] [address] [place] [address] Dr. Chuck Leach RBC 5-10 Abnormal 0-2 [facility] Comment on above: Performed By: #### L IPID, T7, TSH, CMP #### [facility] [address] [place] [address] Dr. Chuck Leach SPEC GRAVITY <=1.005 Abnormal 1.005-<=1.025 [facility] Comment on above: Performed By: #### L IPID, T7, TSH, CMP #### [facility] [address] [place] [address] Dr. Chuck Leach UA PROTEIN TRACE Normal NEGATIVE/ TRACE [facility] Comment on above: Performed By: #### L IPID, T7, TSH, CMP #### [facility] [address] [place] [address] Dr. Chuck Leach Urobilinogen Qn (U) 0.2 {Ava'U}/dL Normal 0.2 - 1. 0 [facility] Comment on above: Performed By: #### L IPID, T7, TSH, CMP #### [facility] [address] [place] [address] Dr. Chuck Leach WBC 20-50 Abnormal NONE SEEN [facility] Comment on above: Performed By: #### L IPID, T7, TSH, CMP #### [facility] [address] [place] [address] Dr. Chuck Leach CULTURE BLOODon 04-15-2022 Microscopic [...] F Trimethoprim/Sulfame thoxazole >=320 R F Normal [facility] Comment on above: Performed By: #### L IPID, T7, TSH, CMP #### [facility] [address] [place] [address] Dr. Chuck Leach CULTURE BLOODon 04-14-2022 Microscopic [...] F Trimethoprim/Sulfame thoxazole >=320 R F Normal [facility] Comment on above: Performed By: #### L IPID, T7, TSH, CMP #### [facility] [address] [place] [address] Dr. Chuck Leach BNPon 04-11-2022 Natriuretic peptide B (Bld) [Mass/Vol] 5192.0 pg/mL Critically high <=900.0 [facility] Comment on above: Performed By: #### L IPID, T7, TSH, CMP #### [facility] [address] [place] [address] Dr. Chuck Leach CBC AUTO DIFFon 04-11-2022 BASO # 0.0 103/ul Normal 0.0-0.1 [facility] Comment on above: Performed By: #### L IPID, T7, TSH, CMP #### [facility] [address] [place] [address] Dr. Chuck Leach Basophils/100 WBC (Bld) 0.2 % Normal 0.2-2.0 [facility] Comment on above: Performed By: #### L IPID, T7, TSH, CMP #### [facility] [address] [place] [address] Dr. Chuck Leach EO # 0.1 103/ul Normal 0.0-0.7 [facility] Comment on above: Performed By: #### L IPID, T7, TSH, CMP #### [facility] [address] [place] [address] Dr. Chuck Leach Eosinophils/100 WBC (Bld) 1.0 % Normal 0.9-7.0 [facility] Comment on above: Performed By: #### L IPID, T7, TSH, CMP #### [facility] [address] [place] [address] Dr. Chuck Leach Erythrocyte distribution width (RBC) [Ratio] 14.4 % Normal 11.0-15.0 [facility] Comment on above: Performed By: #### L IPID, T7, TSH, CMP #### [facility] [address] [place] [address] Dr. Chuck Leach Hematocrit (Bld) [Volume fraction] 29.9 % Critically low 36.0-48.0 [facility] Comment on above: Performed By: #### L IPID, T7, TSH, CMP #### [facility] [address] [place] [address] Dr. Chuck Leach Hemoglobin (Bld) [Mass/Vol] 9.7 g/dL Critically low 12.0-16.0 [facility] Comment on above: Performed By: #### L IPID, T7, TSH, CMP #### [facility] [address] [place] [address] Dr. Chuck Leach IG # 0.10 10e3/ul Critically high 0.00-0.03 [facility] Comment on above: Performed By: #### L IPID, T7, TSH, CMP #### [facility] [address] [address] [address] Chuck Leach IG % 0.9 % Critically high 0.0-0.5 [facility] Comment on above: Performed By: #### L IPID, T7, TSH, CMP #### [facility] [address] [place] [address] Dr. Chuck Leach LYMPH # 0.7 103/ul Critically low 1.2-3.8 [facility] Comment on above: Performed By: #### L IPID, T7, TSH, CMP #### [facility] [address] [place] [address] Dr. Chuck Leach Lymphocytes/100 WBC (Bld) 6.4 % Critically low 20.5-60.0 [facility] Comment on above: Performed By: #### L IPID, T7, TSH, CMP #### [facility] [address] [address] [address] Chuck Leach MANUAL DIFF REQ NO Normal [facility] Comment on above: Performed By: #### L IPID, T7, TSH, CMP #### [facility] [address] [place] [address] Dr. Chuck Leach MCH (RBC) [Entitic mass] 28.2 pg Normal 26.7-34.0 [facility] Comment on above: Performed By: #### L IPID, T7, TSH, CMP #### [facility] [address] [place] [address] Dr. Chuck Leach MCHC (RBC) [Mass/Vol] 32.4 g/dL Normal 29.9-35.2 [facility] Comment on above: Performed By: #### L IPID, T7, TSH, CMP #### [facility] [address] [place] [address] Dr. Chuck Leach MCV (RBC) [Entitic vol] 86.9 fL Normal 81.0-99.0 [facility] Comment on above: Performed By: #### L IPID, T7, TSH, CMP #### [facility] [address] [place] [address] Dr. Chuck Leach MONO # 0.8 103/ul Normal 0.3-0.8 [facility] Comment on above: Performed By: #### L IPID, T7, TSH, CMP #### [facility] [address] [place] [address] Dr. Chuck Leach Monocytes/100 WBC (Bld) 7.6 % Normal 1.7-12.0 [facility] Comment on above: Performed By: #### L IPID, T7, TSH, CMP #### [facility] [address] [place] [address] Dr. Chuck Leach NEUT # 9.0 103/ul Critically high 1.4-6.5 [facility] Comment on above: Performed By: #### L IPID, T7, TSH, CMP #### [facility] [address] [place] [address] Dr. Chuck Leach Neutrophils/100 WBC (Bld) 83.9 % Critically high 43.0-75.0 [facility] Comment on above: Performed By: #### L IPID, T7, TSH, CMP #### [facility] [address] [place] [address] Dr. Chuck Leach Platelet mean volume (Bld) [Entitic vol] 11.4 fL Normal 9.5-13.5 [facility] Comment on above: Performed By: #### L IPID, T7, TSH, CMP #### [facility] [address] [place] [address] Dr. Chuck Leach PLT 181 103/ul Normal 150-450 [facility] Comment on above: Performed By: #### L IPID, T7, TSH, CMP #### [facility] [address] [place] [address] Dr. Chuck Leach RBC 3.44 106/ul Critically low 4.20-5.40 [facility] Comment on above: Performed By: #### L IPID, T7, TSH, CMP #### [facility] [address] [place] [address] Dr. Chuck Leach WBC 10.7 103/ul Normal 4.0-11.0 [facility] Comment on above: Performed By: #### L IPID, T7, TSH, CMP #### [facility] [address] [place] [address] Dr. Chuck Leach PROF 14(COMP METB)on 022 Albumin [Mass/Vol] 2.0 g/dL Critically low 3.4-5.0 [facility] Comment on above: Performed By: #### L IPID, T7, TSH, CMP #### [facility] [address] [place] [address] Dr. Chuck Leach Albumin/Globulin [Mass ratio] 0.6 {ratio} Normal [facility] Comment on above: Performed By: #### L IPID, T7, TSH, CMP #### [facility] [address] [place] [address] Dr. Chuck Leach ALP [Catalytic activity/Vol] 212 U/L Critically high 46-116 [facility] Comment on above: Performed By: #### L IPID, T7, TSH, CMP #### [facility] [address] [place] [address] Dr. Chuck Leach ALT [Catalytic activity/Vol] 43 U/L Normal 14-59 [facility] Comment on above: Performed By: #### L IPID, T7, TSH, CMP #### [facility] [address] [place] [address] Dr. Chuck Leach Anion gap [Moles/Vol] 13.9 mmol/L Normal [facility] Comment on above: Performed By: #### L IPID, T7, TSH, CMP #### [facility] [address] [place] [address] Dr. Chuck Leach AST [Catalytic activity/Vol] 52 U/L Critically high 15-37 [facility] Comment on above: Performed By: #### L IPID, T7, TSH, CMP #### [facility] [address] [place] [address] Dr. Chuck Leach Bilirubin [Mass/Vol] 0.3 mg/dL Normal 0.2-1.0 [facility] Comment on above: Performed By: #### L IPID, T7, TSH, CMP #### [facility] [address] [address] [address] Chuck Leach Calcium [Mass/Vol] 7.9 mg/dL Critically low 8.5-10.1 [facility] Comment on above: Performed By: #### L IPID, T7, TSH, CMP #### [facility] [address] [address] [address] Chuck Leach Chloride [Moles/Vol] 111 mmol/L Critically high 98-107 [facility] Comment on above: Performed By: #### L IPID, T7, TSH, CMP #### [facility] [address] [address] [address] Chuck Leach CO2 [Moles/Vol] 19.7 mmol/L Critically low 21.0-32.0 [facility] Comment on above: Performed By: #### L IPID, T7, TSH, CMP #### [facility] [address] [address] [address] Chuck Leach Creatinine [Mass/Vol] 1.11 mg/dL Critically high 0.55-1.02 [facility] Comment on above: Performed By: #### L IPID, T7, TSH, CMP #### [facility] [address] [address] [address] Chuck Leach EGFR-AF [place] 58 mL/min/1.73m2 Critically low >=60 [facility] Comment on above: Performed By: #### L IPID, T7, TSH, CMP #### [facility] [address] [address] [address] Chuck Leach EGFR-NON AF [place] 48 mL/min/1.73m2 Critically low >=60 [facility] Comment on above: Performed By: #### L IPID, T7, TSH, CMP #### [facility] [address] [address] [address] Chuck Leach Globulin (S) [Mass/Vol] 3.2 g/dL Normal T [facility] Comment on above: Performed By: #### L IPID, T7, TSH, CMP #### [facility] [address] [address] [address] Chuck Leach Glucose [Mass/Vol] 104 mg/dL Normal 74-106 [facility] Comment on above: Performed By: #### L IPID, T7, TSH, CMP #### [facility] [address] [place] [address] Dr. Chuck Leach Potassium [Moles/Vol] 3.6 mmol/L Normal 3.5-5.1 [facility] Comment on above: Performed By: #### L IPID, T7, TSH, CMP #### [facility] [address] [place] [address] Dr. Chuck Leach Protein [Mass/Vol] 5.2 g/dL Critically low 6.4-8.2 [facility] Comment on above: Performed By: #### L IPID, T7, TSH, CMP #### [facility] [address] [place] [address] Dr. Chuck Leach Sodium [Moles/Vol] 141 mmol/L Normal 136-145 [facility] Comment on above: Performed By: #### L IPID, T7, TSH, CMP #### [facility] [address] [place] [address] Dr. Chuck Leach Urea nitrogen [Mass/Vol] 17.0 mg/dL Normal 7.0-18.0 [facility] Comment on above: Performed By: #### L IPID, T7, TSH, CMP #### [facility] [address] [place] [address] Dr. Chuck Leach Urea nitrogen/Creatinine [Mass ratio] 15.3 mg/mg Normal [facility] Comment on above: Performed By: #### L IPID, T7, TSH, CMP #### [facility] [address] [place] [address] Dr. Chuck Leach BLOOD CULTURE ID PANELon A. baumannii Not detected Normal NOT DETECTED [facility] Comment on above: Performed By: #### B CID2 #### [facility] [address] [place] [address] Dr. Chuck Leach Bacteriodes fragilis Not detected Normal NOT DETECTED [facility] Comment on above: Performed By: #### B CID2 #### [facility] [address] [place] [address] Dr. Chukc Leach BCID CONTROLS PASSED Normal [facility] Comment on above: Performed By: #### B CID2 #### [facility] [address] [place] [address] Dr. Chuck RAGSDALEDBTHD BLOOD CULTURE BOTTLE INFORMATION [facility] Comment on above: Performed By: #### B CID2 #### [facility] [address] [place] [address] Dr. Chuck RAGSDALEDHD1 ANTIMICROBIAL RESISTANCE GENES [facility] Comment on above: Performed By: #### B CID2 #### [facility] [address] [place] [address] Dr. Chuck Leach BCIDHD2 SEE BELOW [facility] Comment on above: Result Comment: Note : Antimicrobial resitance can occur via multiple mechanisms. A Not Detected result for the [employer] antomicrobial resistance gene assays does not indicate antimicrobial susceptibility. Subculturing is required for species identification and susceptibility testing of isolates. Performed By: #### B CID2 #### [facility] [address] [place] [address] Dr. Chuck Leach BCIDHD3 Positive [facility] Comment on above: Performed By: #### B CID2 #### [facility] [address] [place] [address] Dr. Chuck RAGSDALEDHD4 Negative [facility] Comment on above: Performed By: #### B CID2 #### [facility] [address] [place] [address] Dr. Chuck Leach BCIDHD5 YEAST [facility] Comment on above: Performed By: #### B CID2 #### [facility] [address] [place] [address] Dr. Chuck Leach Bottle Set: Set 2 [facility] Comment on above: Performed By: #### B CID2 #### [facility] [address] [place] [address] Dr. Chuck Leach Bottle: Aerobic Normal [facility] Comment on above: Performed By: #### B CID2 #### [facility] [address] [place] [address] Dr. Chuck Leach C. neoformans/gattii Not detected Normal NOT DETECTED [facility] Comment on above: Performed By: #### B CID2 #### [facility] [address] [place] [address] Dr. Chuck Leach Shweta albicans Not detected Normal NOT DETECTED [facility] Comment on above: Performed By: #### B CID2 #### [facility] [address] [place] [address] Dr. Chuck Leach Shweta auris Not detected Normal NOT DETECTED [facility] Comment on above: Performed By: #### B CID2 #### [facility] [address] [place] [address] Dr. Chuck Leach Shweta glabrata Not detected Normal NOT DETECTED [facility] Comment on above: Performed By: #### B CID2 #### [facility] [address] [place] [address] Dr. Chuck Leach Shweta Krusei Not detected Normal NOT DETECTED The [facility] Comment on above: Performed By: #### B CID2 #### [facility] [address] [place] [address] Dr. Chuck Leach Shweta Parapsilosis Not detected Normal NOT DETECTED [facility] Comment on above: Performed By: #### B CID2 #### [facility] [address] [place] [address] Dr. Chuck Leach Shweta Tropicalis Not detected Normal NOT DETECTED [facility] Comment on above: Performed By: #### B CID2 #### [facility] [address] [place] [address] Dr. Chuck Leach CTX-M Resistant Gene Detected Abnormal NOT DETECTED [facility] Comment on above: Performed By: #### B CID2 #### [facility] [address] [place] [address] Dr. Chuck Leach E. Cloacae complex Not detected Normal NOT DETECTED [facility] Comment on above: Performed By: #### B CID2 #### [facility] [address] [place] [address] Dr. Chuck Leach E. faecalis Not detected Normal NOT DETECTED [facility] Comment on above: Performed By: #### B CID2 #### [facility] [address] [place] [address] Dr. Chuck Leach E. faecium Not detected Normal NOT DETECTED [facility] Comment on above: Performed By: #### B CID2 #### [facility] [address] [place] [address] Dr. Chuck Leach Enterobacteriaceae Detected Abnormal NOT DETECTED [facility] Comment on above: Performed By: #### B CID2 #### [facility] [address] [place] [address] Dr. Chuck Leach Escherichia coli Detected Abnormal NOT DETECTED The [facility] Comment on above: Performed By: #### B CID2 #### [facility] [address] [place] [address] Dr. Chuck Leach H. influenzae Not detected Normal NOT DETECTED [facility] Comment on above: Performed By: #### B CID2 #### [facility] [address] [place] [address] Dr. Chuck Leach IMP Resistant Gene Not detected Normal NOT DETECTED [facility] Comment on above: Performed By: #### B CID2 #### [facility] [address] [place] [address] Dr. Chuck Leach K. oxytoca Not detected Normal NOT DETECTED [facility] Comment on above: Performed By: #### B CID2 #### [facility] [address] [place] [address] Dr. Chuck Leach K. pneumoniae Not detected Normal NOT DETECTED [facility] Comment on above: Performed By: #### B CID2 #### [facility] [address] [place] [address] Dr. Chuck Leach Klebsiella aerogenes Not detected Normal NOT DETECTED [facility] Comment on above: Performed By: #### B CID2 #### [facility] [address] [place] [address] Dr. Chuck Leach KPC Resistant Gene Not detected Normal NOT DETECTED [facility] Comment on above: Performed By: #### B CID2 #### [facility] [address] [place] [address] Dr. Chuck Leach List. monocytogenes Not detected Normal NOT DETECTED [facility] Comment on above: Performed By: #### B CID2 #### [facility] [address] [place] [address] Dr. Chuck Leach Mcr-1 Resistant Gene Not detected Normal NOT DETECTED [facility] Comment on above: Performed By: #### B CID2 #### [facility] [address] [place] [address] Dr. Chuck Leach mecA/C Not Applicable Normal NOT DETECTED [facility] Comment on above: Performed By: #### B CID2 #### [facility] [address] [place] [address] Dr. Chuck Leach mecA/C MREJ Not Applicable Normal NOT DETECTED [facility] Comment on above: Performed By: #### B CID2 #### [facility] [address] [place] [address] Dr. Chuck Leach N. meningitidis Not detected Normal NOT DETECTED [facility] Comment on above: Performed By: #### B CID2 #### [facility] [address] [place] [address] Dr. Chuck Leach NDM Resistant Gene Not detected Normal NOT DETECTED [facility] Comment on above: Performed By: #### B CID2 #### [facility] [address] [place] [address] Dr. Chuck Leach Oxa-48-like Not detected Normal NOT DETECTED [facility] Comment on above: Performed By: #### B CID2 #### [facility] [address] [place] [address] Dr. Chuck Leach Proteus Not detected Normal NOT DETECTED [facility] Comment on above: Performed By: #### B CID2 #### [facility] [address] [place] [address] Dr. Chuck Leach Pseud. aeruginosa Not detected Normal NOT DETECTED [facility] Comment on above: Performed By: #### B CID2 #### [facility] [address] [place] [address] Dr. Chuck Leach S. maltophilia Not detected Normal NOT DETECTED The [facility] Comment on above: Performed By: #### B CID2 #### [facility] [address] [place] [address] Dr. Chuck Leach Salmonella Not detected Normal NOT DETECTED [facility] Comment on above: Performed By: #### B CID2 #### [facility] [address] [place] [address] Dr. Chuck Leach Seratia marcescens Not detected Normal NOT DETECTED [facility] Comment on above: Performed By: #### B CID2 #### [facility] [address] [place] [address] Dr. Chuck Leach Site: unknown Normal [facility] Comment on above: Performed By: #### B CID2 #### [facility] [address] [place] [address] Dr. Chuck Leach Staph. aureus Not detected Normal NOT DETECTED [facility] Comment on above: Performed By: #### B CID2 #### [facility] Laboratory [address] [place] [address] Dr. Chuck Leach Staph. epidermidis Not detected Normal NOT DETECTED [facility] Comment on above: Performed By: #### B CID2 #### [facility] [address] [place] [address] Dr. Chuck Leach Staph. lugdunensis Not detected Normal NOT DETECTED [facility] Comment on above: Performed By: #### B CID2 #### [facility] [address] [place] [address] Dr. Chuck Leach Staphylococcus Not detected Normal NOT DETECTED [facility] Comment on above: Performed By: #### B CID2 #### [facility] [address] [place] [address] Dr. Chuck Leach Strep. agalactiae Not detected Normal NOT DETECTED [facility] Comment on above: Performed By: #### B CID2 #### [facility] [address] [place] [address] Dr. Chuck Leach Strep. pneumoniae Not detected Normal NOT DETECTED [facility] Comment on above: Performed By: #### B CID2 #### [facility] [address] [place] [address] Dr. Chuck Leach Strep. pyogenes Not detected Normal NOT DETECTED [facility] Comment on above: Performed By: #### B CID2 #### [facility] [address] [place] [address] Dr. Chuck Leach Streptococcus Not detected Normal NOT DETECTED [facility] Comment on above: Performed By: #### B CID2 #### [facility] [address] [place] [address] Dr. Chuck Rosenthal/Alicia Resist. Gene Not Applicable Normal NOT DETECTED [facility] Comment on above: Performed By: #### B CID2 #### [facility] [address] [place] [address] Dr. Chuck Leach VIM Resistant Gene Not detected Normal NOT DETECTED [facility] Comment on above: Performed By: #### B CID2 #### [facility] [address] [place] [address] Dr. Chuck Leach CBC W MANUAL DIFFon 04-10-20 22 ATYPICAL LYMPH # Normal [facility] Comment on above: Performed By: #### L IPID, T7, TSH, CMP #### [facility] [address] [place] [address] Dr. Chuck Leach ATYPICAL LYMPH % Normal [facility] Comment on above: Performed By: #### L IPID, T7, TSH, CMP #### [facility] [address] [place] [address] Dr. Chuck Leach BAND # 2.1 103/ul Critically high 0.0-0.3 [facility] Comment on above: Performed By: #### L IPID, T7, TSH, CMP #### [facility] [address] [place] [address] Dr. Chuck Leach BAND % 14 % Critically high 0-5 [facility] Comment on above: Performed By: #### L IPID, T7, TSH, CMP #### [facility] [address] [place] [address] Dr. Chuck COOPEROM # 0.00 103/ul Normal 0.00-0.10 [facility] Comment on above: Performed By: #### L IPID, T7, TSH, CMP #### [facility] [address] [address] [address] Chuck Leach BASOM % 0.0 % Critically low 0.2-2.0 [facility] Comment on above: Performed By: #### L IPID, T7, TSH, CMP #### [facility] [address] [place] [address] Dr. Chuck Leach BLAST # Normal [facility] Comment on above: Performed By: #### L IPID, T7, TSH, CMP #### [facility] [address] [place] [address] Dr. Chuck Leach BLAST % Normal [facility] Comment on above: Performed By: #### L IPID, T7, TSH, CMP #### [facility] [address] [place] [address] Dr. Chuck Leach CORRECTED WBC Normal 4.0-11.0 [facility] Comment on above: Performed By: #### L IPID, T7, TSH, CMP #### [facility] [address] [place] [address] Dr. Chuck Leach EOS # 0.00 103/ul Normal 0.00-0.70 [facility] Comment on above: Performed By: #### L IPID, T7, TSH, CMP #### [facility] [address] [place] [address] Dr. Chuck Leach EOS% 0.0 % Critically low 0.9-7.0 [facility] Comment on above: Performed By: #### L IPID, T7, TSH, CMP #### [facility] [address] [place] [address] Dr. Chuck Leach HCT 29.3 % Critically low 36.0-48.0 [facility] Comment on above: Performed By: #### L IPID, T7, TSH, CMP #### [facility] [address] [place] [address] Dr. Chuck Leach HGB 9.4 g/dl Critically low 12.0-16.0 [facility] Comment on above: Performed By: #### L IPID, T7, TSH, CMP #### [facility] [address] [place] [address] Dr. Chuck Leach LYMPHM # 0.44 103/ul Critically low 1.20-3.80 [facility] Comment on above: Performed By: #### L IPID, T7, TSH, CMP #### [facility] [address] [place] [address] Dr. Chuck Leach LYMPHM% 3.0 % Critically low 20.5-60.0 [facility] Comment on above: Performed By: #### L IPID, T7, TSH, CMP #### [facility] [address] [place] [address] Dr. Chuck Leach MCH 27.7 pg Normal 26.7-34.0 [facility] Comment on above: Performed By: #### L IPID, T7, TSH, CMP #### [facility] [address] [place] [address] Dr. Chuck Leach MCHC 32.1 g/dl Normal 29.9-35.2 [facility] Comment on above: Performed By: #### L IPID, T7, TSH, CMP #### [facility] [address] [place] [address] Dr. Chuck Leach MCV 86.4 fL Normal 81.0-99.0 [facility] Comment on above: Performed By: #### L IPID, T7, TSH, CMP #### [facility] [address] [place] [address] Dr. Chuck Leach METAMYELOCYTE # Normal [facility] Comment on above: Performed By: #### L IPID, T7, TSH, CMP #### [facility] [address] [place] [address] Dr. Chuck Leach METAMYELOCYTE % Normal [facility] Comment on above: Performed By: #### L IPID, T7, TSH, CMP #### [facility] [address] [place] [address] Dr. Chuck Leach MONOM# 0.59 103/ul Normal 0.30-0.80 [facility] Comment on above: Performed By: #### L IPID, T7, TSH, CMP #### [facility] [address] [place] [address] Dr. Chuck Leach MONOM% 4.0 % Normal 1.7-12.0 [facility] Comment on above: Performed By: #### L IPID, T7, TSH, CMP #### [facility] [address] [place] [address] Dr. Chuck Leach MPV 10.8 fL Normal 9.5-13.5 [facility] Comment on above: Performed By: #### L IPID, T7, TSH, CMP #### [facility] [address] [place] [address] Dr. Chuck Leach MYELOCYTE # Normal [facility] Comment on above: Performed By: #### L IPID, T7, TSH, CMP #### [facility] [address] [place] [address] Dr. Chuck Leach MYELOCYTE % Normal [facility] Comment on above: Performed By: #### L IPID, T7, TSH, CMP #### [facility] [address] [place] [address] Dr. Chuck Leach NRBC Normal [facility] Comment on above: Performed By: #### L IPID, T7, TSH, CMP #### [facility] [address] [place] [address] Dr. Chuck Leach PLT 177 103/ul Normal 150-450 [facility] Comment on above: Performed By: #### L IPID, T7, TSH, CMP #### [facility] [address] [place] [address] Dr. Chuck Leach RBC 3.39 106/ul Critically low 4.20-5.40 [facility] Comment on above: Performed By: #### L IPID, T7, TSH, CMP #### [facility] [address] [address] [address] Chuck Leach RDW 14.1 % Normal 11.0-15.0 [facility] Comment on above: Performed By: #### L IPID, T7, TSH, CMP #### [facility] [address] [place] [address] Dr. Chuck Leach SEG # 11.69 103/ul Critically high 1.40-6.50 [facility] Comment on above: Performed By: #### L IPID, T7, TSH, CMP #### [facility] [address] [place] [address] Dr. Chuck Leach SEG % 79.0 % Critically high 43.0-75.0 [facility] Comment on above: Performed By: #### L IPID, T7, TSH, CMP #### [facility] [address] [place] [address] Dr. Chuck Leach TOXIC GRANULATION 2+ Normal [facility] Comment on above: Performed By: #### L IPID, T7, TSH, CMP #### [facility] [address] [place] [address] Dr. Chuck Leach WBC 14.8 103/ul Critically high 4.0-11.0 [facility] Comment on above: Performed By: #### L IPID, T7, TSH, CMP #### [facility] [address] [place] [address] Dr. Chuck Leach PROF 14(COMP METB)on 022 Albumin [Mass/Vol] 2.1 g/dL Critically low 3.4-5.0 [facility] Comment on above: Performed By: #### L IPID, T7, TSH, CMP #### [facility] [address] [place] [address] Dr. Chuck Leach Albumin/Globulin [Mass ratio] 0.7 {ratio} Normal [facility] Comment on above: Performed By: #### L IPID, T7, TSH, CMP #### [facility] [address] [address] [address] Chuck Leach ALP [Catalytic activity/Vol] 94 U/L Normal 46-116 [facility] Comment on above: Performed By: #### L IPID, T7, TSH, CMP #### [facility] [address] [address] [address] Chuck Leach ALT [Catalytic activity/Vol] 16 U/L Normal 14-59 [facility] Comment on above: Performed By: #### L IPID, T7, TSH, CMP #### [facility] [address] [address] [address] Chuck Leach Anion gap [Moles/Vol] 13.0 mmol/L Normal [facility] Comment on above: Performed By: #### L IPID, T7, TSH, CMP #### [facility] [address] [place] [address] Dr. Chuck Leach AST [Catalytic activity/Vol] 14 U/L Critically low 15-37 [facility] Comment on above: Performed By: #### L IPID, T7, TSH, CMP #### [facility] [address] [address] [address] Chuck Leach Bilirubin [Mass/Vol] 0.3 mg/dL Normal 0.2-1.0 [facility] Comment on above: Performed By: #### L IPID, T7, TSH, CMP #### [facility] [address] [address] [address] Chuck Leach Calcium [Mass/Vol] 7.5 mg/dL Critically low 8.5-10.1 [facility] Comment on above: Performed By: #### L IPID, T7, TSH, CMP #### [facility] [address] [address] [address] Chuck Leach Chloride [Moles/Vol] 109 mmol/L Critically high 98-107 [facility] Comment on above: Performed By: #### L IPID, T7, TSH, CMP #### [facility] [address] [address] [address] Chuck Leach CO2 [Moles/Vol] 20.4 mmol/L Critically low 21.0-32.0 [facility] Comment on above: Performed By: #### L IPID, T7, TSH, CMP #### [facility] [address] [place] [address] Dr. Chuck Leach Creatinine [Mass/Vol] 1.41 mg/dL Critically high 0.55-1.02 [facility] Comment on above: Performed By: #### L IPID, T7, TSH, CMP #### [facility] [address] [place] [address] Dr. Chuck Leach EGFR-AF [place] 44 mL/min/1.73m2 Critically low >=60 [facility] Comment on above: Performed By: #### L IPID, T7, TSH, CMP #### [facility] [address] [place] [address] Dr. Chuck Leach EGFR-NON AF [place] 37 mL/min/1.73m2 Critically low >=60 [facility] Comment on above: Performed By: #### L IPID, T7, TSH, CMP #### [facility] [address] [place] [address] Dr. Chuck Leach Globulin (S) [Mass/Vol] 3.1 g/dL Normal [facility] Comment on above: Performed By: #### L IPID, T7, TSH, CMP #### [facility] [address] [place] [address] Dr. Chuck Leach Glucose [Mass/Vol] 112 mg/dL Critically high 74-106 [facility] Comment on above: Performed By: #### L IPID, T7, TSH, CMP #### [facility] [address] [place] [address] Dr. Chuck Leach Potassium [Moles/Vol] 3.4 mmol/L Critically low 3.5-5.1 [facility] Comment on above: Performed By: #### L IPID, T7, TSH, CMP #### [facility] [address] [place] [address] Dr. Chuck Leach Protein [Mass/Vol] 5.2 g/dL Critically low 6.4-8.2 [facility] Comment on above: Performed By: #### L IPID, T7, TSH, CMP #### [facility] [address] [address] [address] Chuck Leach Sodium [Moles/Vol] 139 mmol/L Normal 136-145 [facility] Comment on above: Performed By: #### L IPID, T7, TSH, CMP #### [facility] [address] [address] [address] Chuck Leach Urea nitrogen [Mass/Vol] 27.0 mg/dL Critically high 7.0-18.0 [facility] Comment on above: Performed By: #### L IPID, T7, TSH, CMP #### [facility] [address] [place] [address] Dr. Chuck Leach Urea nitrogen/Creatinine [Mass ratio] 19.1 mg/mg Normal [facility] Comment on above: Performed By: #### L IPID, T7, TSH, CMP #### [facility] [address] [place] [address] Dr. Chuck Leach BNPon 04-09-2022 Natriuretic peptide B (Bld) [Mass/Vol] 2840.0 pg/mL Critically high <=900.0 [facility] Comment on above: Performed By: #### L IPID, T7, TSH, CMP #### [facility] [address] [place] [address] Dr. Chuck Leach CARDIAC THAD ADMITon 022 CK [Catalytic activity/Vol] 115 U/L Normal 26-192 [facility] Comment on above: Performed By: #### L IPID, T7, TSH, CMP #### [facility] [address] [place] [address] Dr. Chuck Leach CK.MB [Mass/Vol] 0.90 ng/mL Normal <=3.60 [facility] Comment on above: Performed By: #### L IPID, T7, TSH, CMP #### [facility] [address] [place] [address] Dr. Chuck Leach HSTROP 24.7 pg/mL Normal 4.0-51.3 [facility] Comment on above: Result Comment: CUT- OFF POINTS HAVE BEEN ESTABLISHED BASED ON THE FOURTH UNIVERSAL DEFINITIONS OF MYOCARDIAL INFARCTION. THE UPPER REFERENCE LIMIT (URL) OF TROPONIN, DEFINED THE 99TH PERCENTILE OF cTnI DISTRIBUTION IN A REFERENCE POPULATION, HAS BEEN CONFIRMED THE DECISION THRESHOLD FOR PR DIAGNOSIS. Performed By: #### L IPID, T7, TSH, CMP #### [facility] [address] [address] [address] Chuck Leach LESLEY 154 ng/mL Critically high 9-82 [facility] Comment on above: Performed By: #### L IPID, T7, TSH, CMP #### [facility] [address] [address] [address] Chuck Leach CBC W MANUAL DIFFon 04-09-20 22 ATYPICAL LYMPH # Normal [facility] Comment on above: Performed By: #### L IPID, T7, TSH, CMP #### [facility] [address] [address] [address] Chuck Leach ATYPICAL LYMPH % Normal [facility] Comment on above: Performed By: #### L IPID, T7, TSH, CMP #### [facility] [address] [address] [address] Chuck Leach BAND # 0.7 103/ul Critically high 0.0-0.3 [facility] Comment on above: Performed By: #### L IPID, T7, TSH, CMP #### [facility] [address] [address] [address] Chuck Leach BAND % 3 % Normal 0-5 [facility] Comment on above: Performed By: #### L IPID, T7, TSH, CMP #### [facility] [address] [address] [address] Chuck Leach BASOM # 0.00 103/ul Normal 0.00-0.10 [facility] Comment on above: Performed By: #### L IPID, T7, TSH, CMP #### [facility] [address] [address] [address] hCuck Leach BASOM % 0.0 % Critically low 0.2-2.0 [facility] Comment on above: Performed By: #### L IPID, T7, TSH, CMP #### [facility] [address] [address] [address] Chuck Leach BLAST # Normal [facility] Comment on above: Performed By: #### L IPID, T7, TSH, CMP #### [facility] [address] [address] [address] Chuck Leach BLAST % Normal [facility] Comment on above: Performed By: #### L IPID, T7, TSH, CMP #### [facility] [address] [address] [address] Chuck Leach CORRECTED WBC Normal 4.0-11.0 [facility] Comment on above: Performed By: #### L IPID, T7, TSH, CMP #### [facility] [address] [place] [address] Dr. Chuck Leach EOS # 0.23 103/ul Normal 0.00-0.70 [facility] Comment on above: Performed By: #### L IPID, T7, TSH, CMP #### [facility] [address] [place] [address] Dr. Chuck Leach EOS% 1.0 % Normal 0.9-7.0 [facility] Comment on above: Performed By: #### L IPID, T7, TSH, CMP #### [facility] [address] [place] [address] Dr. Chuck Leach HCT 35.2 % Critically low 36.0-48.0 [facility] Comment on above: Performed By: #### L IPID, T7, TSH, CMP #### [facility] [address] [address] [address] Chuck Leach HGB 11.4 g/dl Critically low 12.0-16.0 [facility] Comment on above: Performed By: #### L IPID, T7, TSH, CMP #### [facility] [address] [place] [address] Dr. Chuck Leach LYMPHM # 0.69 103/ul Critically low 1.20-3.80 [facility] Comment on above: Performed By: #### L IPID, T7, TSH, CMP #### [facility] [address] [address] [address] Chuck Leach LYMPHM% 3.0 % Critically low 20.5-60.0 [facility] Comment on above: Performed By: #### L IPID, T7, TSH, CMP #### [facility] [address] [address] [address] Chuck Leach MCH 27.6 pg Normal 26.7-34.0 [facility] Comment on above: Performed By: #### L IPID, T7, TSH, CMP #### [facility] [address] [place] [address] Dr. Chuck Leach MCHC 32.4 g/dl Normal 29.9-35.2 [facility] Comment on above: Performed By: #### L IPID, T7, TSH, CMP #### [facility] [address] [place] [address] Dr. Chuck Leach MCV 85.2 fL Normal 81.0-99.0 [facility] Comment on above: Performed By: #### L IPID, T7, TSH, CMP #### [facility] [address] [place] [address] Dr. Chuck Leach METAMYELOCYTE # Normal [facility] Comment on above: Performed By: #### L IPID, T7, TSH, CMP #### [facility] [address] [place] [address] Dr. Chuck Leach METAMYELOCYTE % Normal [facility] Comment on above: Performed By: #### L IPID, T7, TSH, CMP #### [facility] [address] [place] [address] Dr. Chuck Leach MONOM# 0.46 103/ul Normal 0.30-0.80 [facility] Comment on above: Performed By: #### L IPID, T7, TSH, CMP #### [facility] [address] [place] [address] Dr. Chuck Leach MONOM% 2.0 % Normal 1.7-12.0 [facility] Comment on above: Performed By: #### L IPID, T7, TSH, CMP #### [facility] [address] [address] [address] Chuck Leach MPV 10.8 fL Normal 9.5-13.5 [facility] Comment on above: Performed By: #### L IPID, T7, TSH, CMP #### [facility] [address] [address] [address] Chuck Leach MYELOCYTE # Normal [facility] Comment on above: Performed By: #### L IPID, T7, TSH, CMP #### [facility] [address] [address] [address] Chuck Leach MYELOCYTE % Normal [facility] Comment on above: Performed By: #### L IPID, T7, TSH, CMP #### [facility] [address] [address] [address] Chuck Leach NRBC Normal [facility] Comment on above: Performed By: #### L IPID, T7, TSH, CMP #### [facility] [address] [place] [address] Dr. Chuck Leach PLT 226 103/ul Normal 150-450 [facility] Comment on above: Performed By: #### L IPID, T7, TSH, CMP #### [facility] [address] [address] [address] Chuck Leach RBC 4.13 106/ul Critically low 4.20-5.40 [facility] Comment on above: Performed By: #### L IPID, T7, TSH, CMP #### [facility] [address] [place] [address] Dr. Chuck Leach RDW 14.1 % Normal 11.0-15.0 [facility] Comment on above: Performed By: #### L IPID, T7, TSH, CMP #### [facility] [address] [place] [address] Dr. Chuck Leach SEG # 20.84 103/ul Critically high 1.40-6.50 [facility] Comment on above: Performed By: #### L IPID, T7, TSH, CMP #### [facility] [address] [address] [address] Chuck Leach SEG % 91.0 % Critically high 43.0-75.0 [facility] Comment on above: Performed By: #### L IPID, T7, TSH, CMP #### [facility] [address] [address] [address] Chuck Leach TOXIC GRANULATION 2+ Normal [facility] Comment on above: Performed By: #### L IPID, T7, TSH, CMP #### [facility] [address] [address] [address] Chuck Leach WBC 22.9 103/ul Critically high 4.0-11.0 [facility] Comment on above: Performed By: #### L IPID, T7, TSH, CMP #### [facility] [address] [address] [address] Chuck Leach CULTURE URINEon 04-09-2022 CULTURE URINE Culture Observations: No growth Normal [facility] Comment on above: Performed By: #### L IPID, T7, TSH, CMP #### [facility] [address] [address] [address] Chuck Leach [facility]on SARS-CoV-2 (COVID-19) RNA GUSTAVO+probe Ql (Unsp spec) Not detected Normal NOT DETECTED [facility] Comment on above: Result Comment: When diagnostic [...] for this test is supported by the [employer] Operator of Health and Human Service's declaration that [...] #### L IPID, T7, TSH, CMP #### [facility] [address] [place] [address] Dr. Chuck Leach LACTATE/LACTIC ACIDon 2021 Lactate [Moles/Vol] 1.1 mmol/L Normal 0.4-1.9 [facility] Comment on above: Performed By: #### L IPID, T7, TSH, CMP #### [facility] [address] [place] [address] Dr. Chuck Leach PROF 14(COMP METB)on 022 Albumin [Mass/Vol] 3.2 g/dL Critically low 3.4-5.0 [facility] Comment on above: Performed By: #### L IPID, T7, TSH, CMP #### [facility] [address] [place] [address] Dr. Chuck Leach Albumin/Globulin [Mass ratio] 0.8 {ratio} Normal [facility] Comment on above: Performed By: #### L IPID, T7, TSH, CMP #### [facility] [address] [place] [address] Dr. Chuck Leach ALP [Catalytic activity/Vol] 104 U/L Normal 46-116 [facility] Comment on above: Performed By: #### L IPID, T7, TSH, CMP #### [facility] [address] [place] [address] Dr. Chuck Leach ALT [Catalytic activity/Vol] 26 U/L Normal 14-59 [facility] Comment on above: Performed By: #### L IPID, T7, TSH, CMP #### [facility] [address] [place] [address] Dr. Chuck Leach Anion gap [Moles/Vol] 15.7 mmol/L Normal [facility] Comment on above: Performed By: #### L IPID, T7, TSH, CMP #### [facility] [address] [place] [address] Dr. Chuck Leach AST [Catalytic activity/Vol] 19 U/L Normal 15-37 [facility] Comment on above: Performed By: #### L IPID, T7, TSH, CMP #### [facility] [address] [address] [address] Chuck Leach Bilirubin [Mass/Vol] 0.6 mg/dL Normal 0.2-1.0 [facility] Comment on above: Performed By: #### L IPID, T7, TSH, CMP #### [facility] [address] [place] [address] Dr. Chuck Leach Calcium [Mass/Vol] 8.8 mg/dL Normal 8.5-10.1 [facility] Comment on above: Performed By: #### L IPID, T7, TSH, CMP #### [facility] [address] [place] [address] Dr. Chuck Leach Chloride [Moles/Vol] 103 mmol/L Normal 98-107 [facility] Comment on above: Performed By: #### L IPID, T7, TSH, CMP #### [facility] [address] [place] [address] Dr. Chuck Leach CO2 [Moles/Vol] 23.9 mmol/L Normal 21.0-32.0 [facility] Comment on above: Performed By: #### L IPID, T7, TSH, CMP #### [facility] [address] [place] [address] Dr. Chuck Leach Creatinine [Mass/Vol] 2.13 mg/dL Critically high 0.55-1.02 [facility] Comment on above: Performed By: #### L IPID, T7, TSH, CMP #### [facility] [address] [place] [address] Dr. Chuck Leach EGFR-AF [place] 28 mL/min/1.73m2 Critically low >=60 [facility] Comment on above: Performed By: #### L IPID, T7, TSH, CMP #### [facility] [address] [place] [address] Dr. Chuck Leach EGFR-NON AF [place] CITIZ[place] 23 mL/min/1.73m2 Critically low >=60 [facility] Comment on above: Performed By: #### L IPID, T7, TSH, CMP #### [facility] [address] [address] [address] Chuck Leach Globulin (S) [Mass/Vol] 4.0 g/dL Normal [facility] Comment on above: Performed By: #### L IPID, T7, TSH, CMP #### [facility] [address] [place] [address] Dr. Chuck Leach Glucose [Mass/Vol] 115 mg/dL Critically high 74-106 [facility] Comment on above: Performed By: #### L IPID, T7, TSH, CMP #### [facility] [address] [place] [address] Dr. Chuck Leach Potassium [Moles/Vol] 3.6 mmol/L Normal 3.5-5.1 [facility] Comment on above: Performed By: #### L IPID, T7, TSH, CMP #### [facility] [address] [place] [address] Dr. Chuck Leach Protein [Mass/Vol] 7.2 g/dL Normal 6.4-8.2 [facility] Comment on above: Performed By: #### L IPID, T7, TSH, CMP #### [facility] [address] [place] [address] Dr. Chuck Leach Sodium [Moles/Vol] 139 mmol/L Normal 136-145 [facility] Comment on above: Performed By: #### L IPID, T7, TSH, CMP #### [facility] [address] [place] [address] Dr. Chuck Leach Urea nitrogen [Mass/Vol] 37.0 mg/dL Critically high 7.0-18.0 [facility] Comment on above: Performed By: #### L IPID, T7, TSH, CMP #### [facility] [address] [place] [address] Dr. Chuck Leach Urea nitrogen/Creatinine [Mass ratio] 17.4 mg/mg Normal [facility] Comment on above: Performed By: #### L IPID, T7, TSH, CMP #### [facility] [address] [place] [address] Dr. Chuck Leach PROTIMEon 04-09-2022 INR Coag (PPP) [Relative time] 1.17 {INR} Normal [facility] Comment on above: Performed By: #### L IPID, T7, TSH, CMP #### [facility] [address] [place] [address] Dr. Chuck Leach INR GUIDELINES SEE BELOW Normal [facility] Comment on above: Result Comment: DAVID RED INR: 2.0 - 3.0 CONDITIONS NOT LISTED BELOW 2.5 - 3.5 FOR PROSTHETIC HEART VALVE REPLACEMENT 2.5 - 3.5 RECURRENT THROMBOSIS Performed By: #### L IPID, T7, TSH, CMP #### [facility] [address] [place] [address] Dr. Chuck Leach PT Coag (PPP) [Time] 12.5 s Critically high 9.0-11.6 [facility] Comment on above: Performed By: #### L IPID, T7, TSH, CMP #### [facility] [address] [place] [address] Dr. Chuck Leach PTTon 04-09-2022 aPTT Coag (Bld) [Time] 32.4 s Normal 22.3-36.2 Th e [facility] Comment on above: Performed By: #### L IPID, T7, TSH, CMP #### [facility] [address] [place] [address] Dr. Chuck Leach UA RANDOM W/MICROSCOPICon BACTERIA SMALL Abnormal NONE SEEN [facility] Comment on above: Performed By: #### L IPID, T7, TSH, CMP #### [facility] [address] [place] [address] Dr. Chuck Leach Bilirubin Ql (U) Negative Normal NEGATIVE [facility] Comment on above: Performed By: #### L IPID, T7, TSH, CMP #### [facility] [address] [place] [address] Dr. Chuck Leach CAST SEEN Abnormal NONE SEEN [facility] Comment on above: Performed By: #### L IPID, T7, TSH, CMP #### [facility] [address] [address] [address] Chuck Leach Clarity (U) CLEAR Normal CLEAR [facility] Comment on above: Performed By: #### L IPID, T7, TSH, CMP #### [facility] [address] [address] [address] Chuck Leach COARSE GRANULAR CAST FEW Normal [facility] Comment on above: Performed By: #### L IPID, T7, TSH, CMP #### [facility] [address] [address] [address] Chuck Leach Color (U) YELLOW Normal YELLOW [facility] Comment on above: Performed By: #### L IPID, T7, TSH, CMP #### [facility] [address] [place] [address] Dr. Chuck Leach Crystals LM Nom (Urine sed) NONE SEEN Normal NONE SEEN [facility] Comment on above: Performed By: #### L IPID, T7, TSH, CMP #### [facility] [address] [place] [address] Dr. Chuck Leach Epithelial cells LM Ql (Urine sed) FEW Abnormal NONE SEEN /RARE [facility] Comment on above: Performed By: #### L IPID, T7, TSH, CMP #### [facility] [address] [place] [address] Dr. Chuck Leach Glucose Ql (U) Negative Normal NEGATIVE [facility] Comment on above: Performed By: #### L IPID, T7, TSH, CMP #### [facility] [address] [address] [address] Chuck Leach Hemoglobin Ql (U) LARGE Abnormal NEGATIVE [facility] Comment on above: Performed By: #### L IPID, T7, TSH, CMP #### [facility] [address] [place] [address] Dr. Chuck Leach HYALINE CAST FEW Normal [facility] Comment on above: Performed By: #### L IPID, T7, TSH, CMP #### [facility] [address] [place] [address] Dr. Chuck Leach Ketones Ql (U) TRACE Abnormal NEGATIVE [facility] Comment on above: Performed By: #### L IPID, T7, TSH, CMP #### [facility] [address] [address] [address] Chuck Leach LEUKOCYTES SMALL Abnormal NEGATIVE [facility] Comment on above: Performed By: #### L IPID, T7, TSH, CMP #### [facility] [address] [address] [address] Chuck Leach MUCOUS NONE SEEN Normal NONE SEEN [facility] Comment on above: Performed By: #### L IPID, T7, TSH, CMP #### [facility] [address] [address] [address] Chuck Leach Nitrite Ql (U) Negative Normal NEGATIVE [facility] Comment on above: Performed By: #### L IPID, T7, TSH, CMP #### [facility] [address] [place] [address] Dr. Chuck Leach pH (U) 5.0 [pH] Normal 5-9 [facility] Comment on above: Performed By: #### L IPID, T7, TSH, CMP #### [facility] [address] [place] [address] Dr. Chuck Leach RBC 10-20 Abnormal 0-2 [facility] Comment on above: Performed By: #### L IPID, T7, TSH, CMP #### [facility] [address] [place] [address] Dr. Chuck Leach SPEC GRAVITY >=1.030 Abnormal 1.005-<=1.025 [facility] Comment on above: Performed By: #### L IPID, T7, TSH, CMP #### [facility] [address] [address] [address] Chuck Leach UA PROTEIN 30 mg/dl Abnormal NEGATIVE/ TRACE [facility] Comment on above: Performed By: #### L IPID, T7, TSH, CMP #### [facility] [address] [address] [address] Chuck Leach Urobilinogen Qn (U) 0.2 {Ava'U}/dL Normal 0.2 - 1. 0 [facility] Comment on above: Performed By: #### L IPID, T7, TSH, CMP #### [facility] [address], [place] [address] Dr. Chuck Leach WBC 20-50 Abnormal NONE SEEN [facility] Comment on above: Performed By: #### L IPID, T7, TSH, CMP #### [facility] [address], [place] [address] Dr. Chuck Leach Vital Signs Date Time Vital Sign Value Performing Clinician Facility 09-07-2023 09:21-0500 Blood Pressure Location Cadence Lue [facility] 09-07-2023 09:21-0500 Diastolic blood pressure 73 mm[Hg] Cadence Lue [facility] 09-07-2023 09:21-0500 Heart rate 80 /min Cadence Lue [facility] 09-07-2023 09:21-0500 Respiratory rate 16 /min Cadence Lue [facility] 09-07-2023 09:21-0500 Systolic blood pressure 133 mm[Hg] Cadence Lue [facility] 09-01-2022 12:00-0500 Blood Pressure Location Cadence Lue [facility] 09-01-2022 12:00-0500 Diastolic blood pressure 70 mm[Hg] Cadenec Lue [facility] 09-01-2022 12:00-0500 Heart rate 66 /min Cadence Lue [facility] 09-01-2022 12:00-0500 Respiratory rate 16 /min Cadence Lue [facility] 09-01-2022 12:00-0500 Systolic blood pressure 112 mm[Hg] Cadence Lue [facility] 07-14-2022 08:29-0400 Blood Pressure Location Cadence Lue [facility] 07-14-2022 08:29-0400 Diastolic blood pressure 82 mm[Hg] Cadence Lue [facility] 07-14-2022 08:29-0400 Heart rate 74 /min Cadence Lue [facility] 07-14-2022 08:29-0400 Systolic blood pressure 140 mm[Hg] Cadence Lue [facility] 05-26-2022 09:43-0400 Blood Pressure Location Cadence Lue [facility] 05-26-2022 09:43-0400 Diastolic blood pressure 82 mm[Hg] Cadence Lue [facility] 05-26-2022 09:43-0400 Heart rate 73 /min Cadence Lue [facility] 05-26-2022 09:43-0400 Respiratory rate 16 /min Cadence Lue [facility] 05-26-2022 09:43-0400 Systolic blood pressure 151 mm[Hg] Cadence Lue [facility] [place] 05-04-2022 15:35-0400 Blood Pressure Location Cadence Lue [facility] 05-04-2022 15:35-0400 Body temperature 97.88 [degF] Cadence Lue [facility] 05-04-2022 15:35-0400 BP/Pulse Patient Position Cadence Lue [facility] 05-04-2022 15:35-0400 Diastolic blood pressure 72 mm[Hg] Cadence Lue [facility] 05-04-2022 15:35-0400 Heart rate 72 /min Cadence Lue [facility] 05-04-2022 15:35-0400 Mean blood pressure 91 mm[Hg] Cadence Lue [facility] 05-04-2022 15:35-0400 Respiratory rate 18 /min Cadence Lue [facility] 05-04-2022 15:35-0400 SaO2% (BldA) [Mass fraction] 96 % Cadence Lue [facility] 05-04-2022 15:35-0400 Systolic blood pressure 128 mm[Hg] Cadence Lue [facility] 05-04-2022 14:39-0400 Blood Pressure Location Cadence Lue [facility] 05-04-2022 14:39-0400 Body temperature 97.34 [degF] Cadence Lue [facility] 05-04-2022 14:39-0400 BP/Pulse Patient Position Cadence Lue [facility] 05-04-2022 14:39-0400 Diastolic blood pressure 79 mm[Hg] Cadence Lue [facility] 05-04-2022 14:39-0400 Heart rate 69 /min Cadence Lue [facility] 05-04-2022 14:39-0400 Mean blood pressure 102 mm[Hg] Cadence Lue [facility] 05-04-2022 14:39-0400 Respiratory rate 18 /min Cadence Lue [facility] 05-04-2022 14:39-0400 SaO2% (BldA) [Mass fraction] 96 % Cadence Lue [facility] 05-04-2022 14:39-0400 Systolic blood pressure 148 mm[Hg] Cadence Lue [facility] 05-04-2022 14:30-0400 Body temperature 97.16 [degF] Cadence Lue [facility] 05-04-2022 14:30-0400 Diastolic blood pressure 80 mm[Hg] Cadence Lue [facility] 05-04-2022 14:30-0400 Heart rate 74 /min Cadence Lue [facility] 05-04-2022 14:30-0400 Respiratory rate 23 /min Cadence Lue [facility] 05-04-2022 14:30-0400 SaO2% (BldA) [Mass fraction] 96 % Cadence Lue [facility] 05-04-2022 14:30-0400 Systolic blood pressure 132 mm[Hg] Cadence Lue [facility] 05-04-2022 14:15-0400 Body temperature 97.16 [degF] Cadence Lue [facility] 05-04-2022 14:15-0400 Respiratory rate 13 /min Cadence Lue [facility] 05-04-2022 14:10-0400 Respiratory rate 16 /min Cadence Lue [facility] 05-04-2022 14:03-0400 Body temperature 96.44 [degF] Cadence Lue [facility] 05-04-2022 13:55-0400 Respiratory rate 14 /min Cadence Lue [facility] 05-04-2022 08:34-0400 Blood Pressure Location Cadence Lue [facility] 05-04-2022 08:34-0400 Body temperature 97.88 [degF] Cadence Lue [facility] 05-04-2022 08:34-0400 BP/Pulse Patient Position Cadence Lue [facility] 05-04-2022 08:34-0400 Mean blood pressure 104 mm[Hg] Cadence Lue [facility] 04-21-2022 10:56-0400 Blood Pressure Location Cadence Lue [facility] 04-21-2022 10:56-0400 Diastolic blood pressure 89 mm[Hg] Cadence Lue [facility] 04-21-2022 10:56-0400 Heart rate 81 /min Cadence Lue [facility] 04-21-2022 10:56-0400 Respiratory rate 16 /min Cadence Raziadriss [facility] 04-21-2022 10:56-0400 Systolic blood pressure 156 mm[Hg] Cadence Raziadriss [facility] Encounters Encounter Date Encounter Type Care Provider Facility Start: 09-12-2024 ambulatory Cadence Green Facility:[facility] Start: 09-07-2023 End: 09-08-2023 ambulatory Cadence Green Facility:[facility] Start: 09-07-2023 End: 09-07-2023 Patient encounter procedure Cadence Green [facility] [employer] Start: 03-02-2023 End: 03-03-2023 ambulatory Cadence Randlee Facility:[facility] Start: 02-18-2023 End: 02-19-[address] FRANCISCO GALAN . Facility: Start: 09-01-2022 End: 09-01-2022 Patient encounter procedure Cadence Randlee [facility] [employer] Start: 08-19-2022 End: 08-20-[address] VANESSA ASHTON Facility:[facility] Start: 07-28-2022 Encounter for preprocedural laboratory examination CADENCE GREEN . [facility] Start: 07-28-2022 End: 07-28-2022 ambulatory CADENCE GREEN . Facility: Start: 07-24-2022 End: 07-25-2022 ambulatory CADENCE GREEN . Facility:[facility] Start: 07-24-2022 End: 07-25-2022 Encounter for preprocedural laboratory examination CADENCE Tyler LUE . Facility:[facility] Start: 07-16-2022 End: 07-17-2022 ambulatory MIKE MAYA Facility:[facility] Start: 07-14-2022 End: 07-14-2022 Lab Drop off Cadence Tyler. [facility] Start: 07-14-2022 End: 07-14-2022 Patient encounter procedure Cadence Lay Lue [facility] Start: 07-08-2022 End: 07-09-[address] VANESSA ASHTON Facility:[facility] Start: 06-09-2022 End: 06-09-[address] VANESSA ASHTON Facility:[facility] Start: 06-05-2022 End: 06-06-[address] FRANCISCO GALAN . Facility:[facility] Start: 06-03-2022 Encounter for other preprocedural examination CADENCE M LUE . [facility] Start: 05-31-2022 End: 06-01-2022 ambulatory CADENCE M LUE . Facility:[facility] Start: 05-31-2022 End: 06-01-2022 Encounter for other preprocedural examination CADENCE M LUE . Facility:[facility] Start: 05-26-2022 End: 05-26-2022 Patient encounter procedure Cadence Tyler. Lue [facility] Start: 05-24-2022 End: 05-25-[address] VANESSA ASHTON Facility:[facility] Start: 05-06-2022 End: 05-06-2022 ambulatory CADENCE M LUE . Facility:[facility] Start: 05-04-2022 End: 05-04-2022 Admission to same day surgery center Cadence Tyler. Lue [facility] Start: 04-21-2022 End: 04-22-[address] FRANCISCO GALAN . Facility:[facility] Start: 04-21-2022 End: 04-21-2022 Patient encounter procedure Cadence Green [facility] Start: 04-09-2022 End: 04-11-2022 Evaluation and management [...] Immunization Date Immunization Notes Care Provider [facility] 08-02-2022 influenza virus vacc ine, unspecified formulation Cadence Ludriss [facility] 09-16-2021 SARS-CoV-2 (COVID-19 ) mRNA-1273 vaccine Cadence Lue [facility] Comment on above: Result Comment: 2021: [id number] 07-08-2021 influenza virus vacc ine, unspecified formulation Cadence Lue [facility] 02-04-2021 SARS-CoV-2 (COVID-19 ) mRNA-1273 vaccine Cadence Lue [facility] Comment on above: Result Comment: 2021: [id number] 01-07-2021 SARS-CoV-2 (COVID-19 ) mRNA-1273 vaccine Cadence Green [facility] Comment on above: Result Comment: 2021: [id number] 09-01-2020 influenza virus vacc ine, unspecified formulation Cadence Green [facility] 08-27-2020 influenza, unspecifi ed formulation Cadence Green [facility] 08-10-2018 pneumococcal polysaccharide vaccine, 23 valent Cadence Green [facility] Payers Date Payer Category Payer Medicare [id number] 1960 Unknown [id number] 1950 Unknown [id number] 2.16.84 [id number] 1949 Unknown [id number] 2.16.84 [id number] 1949 Unknown [id number] 2.16.84 0.1.566366.3.579.2.59 1949 Unknown [id number] 2.16.84 0.1.126539.3.579.2.593 1949 Unknown [id number] 2.16.84 0.1.189502.3.579.2.59 1949 Unknown [id number] 2.16.84 0.1.633449.3.579.2.593 1949 Unknown [id number] 2.16.84 0.1.869926.3.579.2.59 1949 Unknown [id number] 2.16.84 0.1.268098.3.579.2.593 1949 Unknown [id number] 2.16.84 0.1.400204.3.579.2.593 1949 Unknown [id number] 2.16.84 0.1.070261.3.579.2.593 1949 Unknown [id number] 2.16.84 0.1.646429.3.579.2.593 1949 Unknown [id number] 2.16.84 0.1.054195.3.579.2.593 1949 Unknown [id number] 2.16.84 0.1.586777.3.579.2.593 1949 Unknown [id number] 2.16.84 0.1.984588.3.579.2.593 1949 Unknown [id number] 2.16.8 40.1.090626.3.579.2.727 1949 Unknown [id number] 2.16.8 40.1.577669.3.579.2.727 1949 Unknown [id number] 2.16.8 [id number] Social History Date Type Detail Facility Tobacco smoking status No Smokin g Status Entered [facility] Sex Assigned At Female [facility] Tobacco smoking status No Smokin g Status Entered [facility] Start: 09-01-2022 End: 09-07-2023 Tobacco smoking status Never smoked tobacco (finding) [facility] Tobacco smoking status Never [facility] Medical Equipment Procedure Code Equipment Code Equipment [...] FDA Start: 05-04-2022 CYSTOSCOPY RETROGRADE STENT INSERTION aCdence Green MD 05/04/22 Unknown Ureter R FDA Start: 05-04-2022 Functional Status Date Assessment Result Facility 09-07-2023 Functional Status N/A [facility] 09-01-2022 Functional Status N/A [facility] 07-14-2022 Functional Status N/A [facility] 05-26-2022 N/A [facility] 04-30-2022 Functional Status No [facility] 04-21-2022 Functional Status N/A [facility] Clinical Notes 04-21-2022 to 09-07-2023 [...] include: ?8 oz (237 mL) of milk, cqoqxde-getjmdpxnyqi-qbnvp milk, and calcium-fortifiedfruit juice. Calcium-fortified means that [...] ?Spinach (cooked), rhubarb, beets, sweet potatoes, and Nepalese chard. ?Peanuts. ?Potato chips, vincentian fries, and baked potatoes with skin on. ?Nuts and nut products. ?Chocolate. If you regularly take a diuretic medicine, make sure to eat at least 1 or 2 servings of fruits or vegetables that are high in potassium each day. These include: ?Avocado. ?Banana. ?[place], prune, carrot, or tomato juice. ?Baked potato. [...] magnesium, fish oil, or vitamin B6. Take siuj-xsc-ojfrkng and prescription medicines only as told by [...] Casseroles. Pizza. Lasagna. Frozen meals. Potato chips. Faroese fries. The items listed above may not [...] provider. Document Revised: 01/06/2023 Document Reviewed: 01/06/2023 [employer] Patient Education 2022 [email or web address]. Follow Up Care 03/02/2023 12:26:09 With:Peter VILLA, OSCAR Rivas, URO Address: When:Within 1 Year(s) [facility] [place] 09-01-2022 Hospital Discharg e instructions [...] include: ?Spinach. ?Rhubarb. ?Beets. ?Potato chips and vincentian fries. ?Nuts. If you regularly take a diuretic medicine, make sure to eat at least 1 2 fruits or vegetables high in potassium each day. These include: ?Avocado. ?Banana. ?[place], prune, carrot, or tomato juice. ?Baked potato. [...] Casseroles. Pizza. Lasagna. Frozen meals. Potato chips. Faroese fries. Summary You can reduce your risk [...] 01/21/2012 Document Revised: 01/16/2020 Document Reviewed: 09/06/2017 [employer] Patient Education 2020 [email or web address]. 09/01/2022 12:32:57 Dietary Guidelines to Help Prevent [...] include: ?Spinach. ?Rhubarb. ?Beets. ?Potato chips and vincentian fries. ?Nuts. If you regularly take a diuretic medicine, make sure to eat at least 1 2 fruits or vegetables high in potassium each day. These include: ?Avocado. ?Banana. ?[place], prune, carrot, or tomato juice. ?Baked potato. [...] Casseroles. Pizza. Lasagna. Frozen meals. Potato chips. Faroese fries. Summary You can reduce your risk [...] 01/21/2012 Document Revised: 01/16/2020 Document Reviewed: 09/06/2017 [employer] Patient Education 2020 [email or web address]. Follow Up Care 07/30/2022 15:20:26 With:Peter VILLA, OSCAR Rivas, URO Address: When:6 months Comments:KUB & renal us [facility] [place] [facility] [place] 07-14-2022 Evaluation + Plan note Diagnostic Tests PendingUrine Culture 07/14/22 [facility] 07-14-2022 Hospital Discharg e instructions Patient Education [...] Follow these instructions at home: Medicines Take ocfw-zqd-yvvjqml and prescription medicines only as told by [...] or the blood stops without treatment. Take nokn-htq-hajsjlf and prescription medicines only as told by your health care provider. Drink enough fluid to keep your urine clear or pale yellow. This information is not intended to replace advice given to you by your health care provider. Make sure you discuss any questions you have with your health care provider. Document Released: 09/26/2006 Document Revised: 02/20/2020 Document Reviewed: 10/29/2017 [employer] Patient Education 2019 [email or web address]. 07/14/2022 09:06:21 Kidney Stones, Ygom-de-Bpmw Kidney Stones Kidney stones are rock-like masses [...] Follow these instructions at home: Medicines Take yvvo-bkg-znndomr and prescription medicines only as told by [...] 03/14/2009 Document Revised: 02/12/2020 Document Reviewed: 02/12/2020 [employer] Patient Education 2019 [email or web address]. Follow Up Care 06/11/2022 11:31:47 With:Peter VILLA, OSCAR Rivas, URO Address: When: Unknown [facility] 05-26-2022 Hospital Discharg e instructions [...] include: ?Spinach. ?Rhubarb. ?Beets. ?Potato chips and vincentian fries. ?Nuts. If you regularly take a diuretic medicine, make sure to eat at least 1 2 fruits or vegetables high in potassium each day. These include: ?Avocado. ?Banana. ?[place], prune, carrot, or tomato juice. ?Baked potato. [...] Casseroles. Pizza. Lasagna. Frozen meals. Potato chips. Faroese fries. Summary You can reduce your risk [...] 01/21/2012 Document Revised: 01/16/2020 Document Reviewed: 09/06/2017 [employer] Patient Education 2020 [email or web address]. Follow Up Care 05/05/2022 08:59:28 With:Peter VILLA, OSCAR Rivas, URO Address: When: Unknown [facility] 05-04-2022 Hospital Discharg e instructions [...] Follow these instructions at home: Medicines Take spay-ecn-xznuimu and prescription medicines only as told by [...] 10/15/2008 Document Revised: 01/07/2020 Document Reviewed: 08/17/2017 [employer] Patient Education 2020 [email or web address]. Follow Up Care 04/21/2022 14:21:45 With:Cadence Green Address: [facility] [place] [address] [address]- [phone] Business (1) When: Unknown Comments:Call for followup appointment in 3-4 weeks with [facility] 05-04-2022 Evaluation + Plan note Extrac carley from: Title:Post-anesthesia - General Author:Lazaro Smith DO Date:05/04/22 Plan Transfer/ Discharge: Condition stable. Extracted from: Title:EU- R ESWL, stent exchange Author:Cadence Green MD Date:05/04/22 Impression and Plan Diagnosis Ureteral stone with hydronephrosis (AMB58-NN N13.2, Discharge, Medical). Kidney stone (NPO89-ML N20.0, Discharge, Medical). Diagnosis Ureteral stone with hydronephrosis (RNN81-CR N13.2, Discharge, Medical). Kidney stone (QKI57-PE N20.0, Discharge, Medical). Counseled: Patient, Family. Extracted from: Title:Pre-anesthesia - Adult Author:Lazaro Flores Jr., DO Date:05/04/22 Plan Citizen Of [place] [employer] of Anesthesiologists (ASA) physical status classification: Class II. Anesthetic Preoperative Plan Anesthesia: General. . Anesthetic plan, risks, benefits, and alternatives discussed with the patient and/or family. Patient verbalized understanding. Adverse reactions, complications, and alternatives discujssed. Consent signed and on chart.. [facility]07-13-2022 Hospital Discharge instructions Patient Education 04/21/2022 11:44:49 [...] including vitamins, herbs, eye drops, creams, and yrob-kbx-oobxodd medicines. Any blood disorders you have. Any [...] 09/23/2001 Document Revised: 01/07/2020 Document Reviewed: 08/17/2017 [employer] Patient Education 2020 [email or web address]. Follow Up Care 04/13/2022 09:57:29 With:Cadence Green MD, URL, URO Address: When: Unknown Comments:ESWL [facility] evaluation + Plan note Future Appointments Appointment Date:04/27/2022 08:00:00 AM Scheduled Provider: Location:[facility] Appointment Type:Surgery CALL PAT FT Appointment Date:05/04/2022 11:00:00 AM Scheduled Provider: Location:[facility] Appointment Type:Surgery FT [facility] evaluation + Plan note Future Appointments Appointment Date:03/02/2023 10:15:00 AM Scheduled Provider:Cadence Green MD Location:[facility] Appointment Type:URO Office Visit [facility] evaluation + Plan note Future Appointments Appointment Date:09/12/2024 09:00:00 AM Scheduled Provider:Cadence Green MD Location:[facility] Appointment Type:URO Office Visit [facility] Hospital course Narrative No data available for this section [facility] Hospital Discharge instructions No data available for this section [facility] data available for this section [facility] Summary Purpose Family History No Family History Records Found No data available for this section No Family History Records Found Advance Directives No Advanced Directives Records FoundNo Advanced Directives Records Found Additional Source Comments Care Team (unrecognized sect ion and content) Personnel Name: Francisco Galan MD Address: [address] [place] [address], [place] [address] [[email or web address] Personnel Name: Francisco Galan MD Address: [address] [place] [address], [place] [address] [place] Personnel Name: Francisco Galan MD Address: [address] [place] [address], [place] [address]- [place] Personnel Name: Francisco Galan MD Address: Address: [address] [place] [address], [place] [address] [place] Personnel Name: Francisco Galan MD Address: Address: [address] [place] [address], [place] [address] [[email or web address] Personnel Name: Francisco Galan MD Address: Address: [address] [place] [address], [place] [address] [place] Personnel Name: Francisco Galan MD Address: Address: [address] [place] [address] INFORMATION SOURCE (unrecogn ized section and content) DATE CREATED AUTHOR 02/19/2023 [facility] DATE CREATED AUTHOR AUTHOR'S ORGANIZ ATION 09/09/2023 [facility] FOR RECORDS PERTAINING TO PATIENTS WHO [...] BE BASED ON THE PRIMARY CLINICAL RECORDS. [employer] [facility]. provides no warranty or guarantee of the accuracy or completeness of information in this document.
[2024-08-20 11:34] LABS: Basophils Percent Auto 0.3 % (0.2-2.0); Eosinophils Percent Auto 0.1 % (0.9-7.0); Hematocrit 40.1 % (36.0-48.0); Hemoglobin 13.1 g/dL (12.0-16.0); Immature Granulocytes Abs Auto 0.02 10^3/uL (0.00-0.03); Immature Granulocytes Pct Auto 0.3 % (0.0-0.5); Lymphocytes Absolute Auto 1.4 10^3/uL (1.2-3.8); Lymphocytes Percent Auto 20.1 % (20.5-60.0); Mean Corpuscular HGB Conc 32.7 g/dL (29.9-35.2); Mean Corpuscular Hemoglobin 28.7 pg (26.7-34.0); Mean Corpuscular Volume 87.7 fL (81.0-99.0); Mean Platelet Volume 9.1 fL (9.5-13.5); Monocytes Absolute Auto 0.5 10^3/uL (0.3-0.8); Monocytes Percent Auto 6.7 % (1.7-12.0); Neutrophils Absolute Auto 5.2 10^3/uL (1.4-6.5); Neutrophils Percent Auto 72.5 % (43.0-75.0); Platelet Count 344 10^3/uL (150-450); Red Blood Count 4.57 10^6/uL (4.20-5.40); Red Cell Distribution Width 13.7 % (11.0-15.0); White Blood Count 7.2 10^3/uL (4.0-11.0)
[2024-08-20 11:46] LABS: Estimated Average Glucose 108 mg/dL; Glycohemoglobin A1C 5.4 % (4.5-6.2)
[2024-08-20 12:18] LABS: Alanine Aminotransferase 18 U/L (14-59); Albumin Globulin Ratio 1.1; Albumin Level 3.7 g/dL (3.4-5.0); Alkaline Phosphatase 111 U/L (46-116); Anion Gap 14.5; Aspartate Amino Transferase 15 U/L (15-37); BUN Creatinine Ratio 12.5; Bilirubin Total 0.6 mg/dL (0.2-1.0); Calcium 9.3 mg/dL (8.5-10.1); Chloride 101 mmol/L (98-107); Chol HDL Ratio 3.8; Cholesterol 284 mg/dL (<=200); Estimated GFR (African America >60 (>=60 mL/min/1.73m^2); Estimated GFR (Non-African Ame >60 (>=60 mL/min/1.73m^2); Free T3 1.68 pg/mL (2.18-3.98); Globulin 3.3 g/dL; Glucose 93 mg/dL (74-106); HDL Cholesterol 75 mg/dL (40-60); Potassium 3.5 mmol/L (3.5-5.1); Sodium 136 mmol/L (136-145); Thyroid Stimulating Hormone 1.891 uIU/mL (0.358-3.740); Triglycerides 171 mg/dL (<=150); VLDL CHOLESTEROL 34.2 mg/dL
== END 2024-08-20 08:40 | disposition home or self-care (01) ==
LOC: LAB 08:39
PROVIDERS: PCP Family Medicine; Visit Provider Family Medicine
DX: E03.9 Hypothyroidism, unspecified (principal); R53.83 Other fatigue; Z79.890 Hormone replacement therapy; R73.09 Other abnormal glucose; E78.5 Hyperlipidemia, unspecified; Z12.11 Encounter for screening for malignant neoplasm of colon
CPT/HCPCS: 36415; 80053; 80061; 83036; 84436; 84443; 84481; 85025